=== PATIENT | male | born 1950 | race Caucasian/White ===

== ENCOUNTER 2020-01-05 01:09 | Outpatient (CLI) | payer MEDICARE, SELFPAY ==
[2020-01-06 18:47] LABS: SARS-CoV-2 RNA PCR Negative
== END 2020-01-05 01:10 | disposition home or self-care (01) ==
LOC: ANHCOVIDDT 01:09
PROVIDERS: PCP Surgery Plastic and Reconstructive Surgery; Visit Provider Otolaryngology
DX: Z03.818 Encounter for observation for suspected exposure to other biological agents ruled out (principal); Z11.59 Encounter for screening for other viral diseases
CPT/HCPCS: 87635; C9803; U0003

== ENCOUNTER 2020-01-05 08:35 | Outpatient (CLI) | payer MEDICARE, SELFPAY ==
--- NOTE | 2020-01-05 08:39 | ECG_ITS ---
Measurements Intervals [place] Rate: 86 P: 10 HI: 195 QRS: -81 QRSD: 140 T: 30 QT: 381 QTc: 457 Interpretive Statements SINUS RHYTHM RIGHT BUNDLE BRANCH BLOCK LEFT ANTERIOR FASCICULAR BLOCK ABNORMAL ECG Electronically Signed On 01-05-2020 9:08:27 CDT by Parker Curtis D.O.
[2020-01-05 09:33] LABS: Anion Gap 12.6 mmol/L (7-16); Blood Urea Nitrogen 32 mg/dL (9-20); Calcium 9.7 mg/dL (8.4-10.2); Carbon Dioxide 25 mmol/L (22-30); Chloride 103 mmol/L (98-107); Estimated Glomerular Filt Rate 55; Glucose 236 mg/dL (75-110); Potassium 4.6 mmol/L (3.4-5.0); Sodium 136 mmol/L (137-145)
== END 2020-01-05 08:36 | disposition home or self-care (01) ==
PROVIDERS: Anesthesiology; PCP Family Medicine; Visit Provider Otolaryngology
DX: Z01.818 Encounter for other preprocedural examination (principal); E11.9 Type 2 diabetes mellitus without complications; R94.31 Abnormal electrocardiogram [ECG] [EKG]
CPT/HCPCS: 36415; 80048; 87635; 93005; C9803; U0003

== ENCOUNTER 2020-01-08 01:24 | Day surgery (SDC) | payer MEDICARE, SELFPAY ==
[2020-01-01 14:14] VITALS: BMI 39.5
[2020-01-01 14:51] VITALS: BMI 39.5
[2020-01-08] VITALS (7 sets, daily range): BP systolic 126–146; BP diastolic 66–81; PULSE 59–100; RESP 10–16; TEMP 36.1–36.6; O2SAT 97–99
[2020-01-08] MEDS: LACTATED RINGERS 1,000 ML 30 ML IV CONT ×2 (08:54→10:50)
[2020-01-08 09:00] LABS: Glucose Point of Care 232 (65-105)
--- NOTE | 2020-01-08 09:13 | WPDANESEPPF ---
Anes - Initial Pre Proc Eval Procedure: Operation Date: 01/08/20 10:30 Proposed Procedures p Left Ear Tympanoplasty - Kashif Schaefer MD Date/Time: 01/08/20 09:13 Surgeon: Kashif Schaefer MD Pre Op Diagnosis: Tympanic Membrane Perforation Patient Data Age: 69 Gender: M Height: 5 ft 10 in Weight: 124.2 kg Last Vital Signs Temp 97.9 F 01/08/20 09:02 Pulse 98 01/08/20 09:02 BP 146/71 H 01/08/20 09:02 Pulse Ox 99 01/08/20 09:02 Allergies Allergy/AdvReac Type Severity Reaction Status Date / Time No Known Allergies Allergy Verified 01/08/20 08:37 Home Medications Medication Instructions Recorded Confirmed Type cholecalciferol (vitamin D3) 125 mcg PO DAILY 01/01/20 01/08/20 History clopidogrel [Plavix] 75 mg PO DAILY 01/01/20 01/08/20 History fenofibrate nanocrystallized 145 mg PO HS 01/01/20 01/08/20 History [Tricor] gabapentin 300 mg PO BID 01/01/20 01/08/20 History glipizide 5 mg HS 01/01/20 01/08/20 History glipizide 10 mg PO QAM 01/01/20 01/08/20 History insulin glargine [Lantus U-100 70 unit SUBCUT QPM 01/01/20 01/08/20 History Insulin] meloxicam [Mobic] 15 mg PO DAILY 01/01/20 01/08/20 History metformin 500 mg PO BID 01/01/20 01/08/20 History oxybutynin chloride 5 mg PO HS 01/01/20 01/08/20 History Laboratory Tests 01/08/20 08:57 POC Capillary Glucose 232 mg/dl H mg/dl (65-105) Patient hx anesthesia problems: none Family hx anesthesia problems: none PMFSH Past Medical History Medical History (Updated 01/08/20 @ 08:08 by Homer Seals MD) Diabetes Hyperlipidemia JOHN (obstructive sleep apnea) Peripheral neuropathy Social History Social History Smokeless tobacco user: chewing tobacco and snuff Additional smoking assessment comments: STATES CHEWED FOR 15-20 YRS STOPPED MAY 2019 Alcohol intake: current Alcohol use details: OCCASIONAL Living arrangements: with family Spiritual care concerns: No Anes - Eval Final PreProcedure Day of Procedure 01/08/20 09:13 Patient weight: morbidly obese Heart: regular rate and rhythm Lungs: clear to auscultation Airway: Mallampati scale class III Neurological: alert and oriented Last oral intake: >/= 8 hours ASA classification: III Emergent: no Anesthetic plan: proceed Anesthesia type and monitoring: general ETT (or LMA) and standard monitoring Informed Consent: The patient's anesthetic plan and its attendant risks and benefits were discussed with the patient/family/POA. Questions were solicited and answers provided to the satisfaction of the patient/family/POA.
--- NOTE | 2020-01-08 09:18 | SUR.PREOP ---
0915- REVIEWED PT BLOOD [id number] GAINES. HE STATED TO RECHECK IN PACU.
--- NOTE | 2020-01-08 09:24 | WPDHPUPDATE1 ---
History and Physical Update Update Date/Time: 01/08/20 09:24 LEFT tympanoplasty History and Physical has been reviewed, including an updated exam of the patient. There are NO changes in the patient's condition. Risks, benefits, and alternatives have been discussed and questions answered. Patient agrees to proceed with procedure.
[2020-01-08] MEDS: ceFAZolin 3 GM/D5W 100 ML 100 ML IVPB (09:50)
[2020-01-08] MEDS: LIDO 1%/EPINEPHRINE 1:100,000 20 ML VIAL INFILTRATE (10:20)
[2020-01-08] MEDS: EPINEPHrine HCL INJ 1 MG/ML AMPUL IRRIGATION (10:20)
[2020-01-08] MEDS: CIPROFLOXACIN HCL 0.3% OP SOLN 2.5 ML BTL 4 DROP EACH EAR (10:21)
--- NOTE | 2020-01-08 10:47 | P.OP_ITS ---
Procedure Note - Detailed Date of procedure: 01/08/20 Pre-op diagnosis: Tympanic Membrane Perforation Post-op diagnosis: same Procedure performed: Left fat graft myringoplasty Description of procedure: On date of surgery, the patient was identified in the preoperative holding area. Consent signed and verified. The correct ear was marked. The patient was then taken back to the OR and placed under general anesthesia via laryngeal mask. A timeout was performed verifying the correct patient identity, laterality and procedure which they were. The patient was then prepped and draped for left ear surgery. The ear was first examined under binocular microscope. This revealed an anterior 5-10% central perforation of the tympanic membrane. This was smaller than had been noted in the office. The edges were freshened using a reese pick with a postage stamp technique. The decision was made to perform a fat graft myringoplasty closure instead of formal fascia graft due to small size of perforation. Next, a small amount of gelfoam packing was secured in the middle ear space to create a bed for the graft. Attention was then directed to the postauricular space. A 1cm incision was made postauriuclarly after 1% lidocaine with 1:100k epinephrine was infiltrated. A piece of fat was harvested for grafting with care to avoid injury to surrounding skin. The harvest site was then closed with 5-0 fast absorbing suture in an interrupted fashion. The fat graft was then placed on the gelfoam, completely covering the perforation. Satisfied with placement, A cotton ball was placed in the ear canal, ointment and bandage placed on the harvest site, and care of the patient was returned to anesthesia who woke the patient up, removed LMA and transferred the patient to the PACU for recovery in stable condition without complication. Kashif Schaefer M.D. [facility] Surgeon: Kashif Schaefer MD Estimated blood loss (mL): 5 Drains: No Packing: Yes (gelfoam) Pathology: none sent Complications: No immediate complications Disposition: same day Findings: anterior left 5-10% perforation
[2020-01-11 09:35] LABS: Glucose Point of Care 171 (65-105)
== END 2020-01-08 12:14 | disposition home or self-care (01) ==
PROVIDERS: PCP Family Medicine; Visit Provider Otolaryngology
PROC: (CPT 69620; principal; 2020-01-08 10:30)
DX: H72.92 Unspecified perforation of tympanic membrane, left ear (principal); E78.5 Hyperlipidemia, unspecified; E11.40 Type 2 diabetes mellitus with diabetic neuropathy, unspecified; G47.33 Obstructive sleep apnea (adult) (pediatric); Z79.84 Long term (current) use of oral hypoglycemic drugs; Z79.4 Long term (current) use of insulin; Z79.02 Long term (current) use of antithrombotics/antiplatelets; Z87.891 Personal history of nicotine dependence; E66.01 Morbid (severe) obesity due to excess calories; Z68.39 Body mass index [BMI] 39.0-39.9, adult
CPT/HCPCS: 69620; A9270; J0171; J0690; J1100; J2250; J2405; J2704; J3010; J7120

== ENCOUNTER 2021-05-14 10:39 | Outpatient (CLI) | payer MEDICARE, SELFPAY ==
[2021-05-14 11:17] LABS: Anion Gap 7 mmol/L (8-16); Blood Urea Nitrogen 20 mg/dL (9-20); Calcium 8.9 mg/dL (8.4-10.2); Carbon Dioxide 27 mmol/L (22-30); Chloride 103 mmol/L (98-107); Estimated Glomerular Filt Rate > 60; Glucose 116 mg/dL (65-110); Potassium 4.3 mmol/L (3.4-5.0); Sodium 137 mmol/L (137-145)
== END 2021-05-14 10:40 | disposition home or self-care (01) ==
LOC: ANHSURGERY 10:42
PROVIDERS: Anesthesiology; PCP Family Medicine; Visit Provider Surgery
DX: Z01.818 Encounter for other preprocedural examination (principal); E11.9 Type 2 diabetes mellitus without complications
CPT/HCPCS: 36415; 80048

== ENCOUNTER 2021-05-19 02:45 | Day surgery (SDC) | payer MEDICARE, SELFPAY ==
[2021-05-05 15:02] VITALS: BMI 40.1
--- NOTE | 2021-05-05 15:08 | PC.NURSE ---
Report to the Outpatient Waiting Room, entrance under the green pavilion located off [facility], at time _1130 on date __05/19/21 . OR Time: 1:30 PM . - You and your visitor will be asked a series of questions to screen for COVID 19 for your protection. - A mask is required within the hospital. - Only one visitor is allowed at this time. Patient visitors will be guided where to wait when not with patient. Preoperative COVID Testing Requirements: No COVID Test needed if: (proof is required; if not received patient will have Rapid Test prior to entry) - Patient has received COVID Vaccine at least 14 days prior to procedure date or - Patient has positive COVID test result within last 90 days of surgery date. COVID Test needed if above criteria is not met If not COVID vaccinated a COVID test must be conducted within 72 hours of surgery and patient is asked to isolate self from time of testing until procedure. You will go to the [facility] for your COVID testing. The [facility] is located at the corner of [address] [facility]. You will only be called if COVID results are positive and your surgeon may reschedule your elective surgery date. Patients may have clear liquids (water, carbonated beverages, clear teas, apple juice) until 3 hours prior to surgery with a maximum of 20 ounces. - No food from midnight until time of surgery - Infants may have breast milk until 4 hours before surgery, infant formula 6 hours prior to surgery. - Children will be allowed to drink immediately following surgery. If applicable, please bring a bottle or sippy cup to assist with drinking. Juice, water, soda, and popsicles are readily available. For infants on formula, please bring formula the day of surgery. Pacifiers are allowed. Take the following medications with a SIP of water the morning of surgery: __GABAPENTIN MAY CONT. PLAVIX Medications to discontinue per physician _ALL VITAMINS AND SUPPLEMENTS 3 DAYS PRE OP Date to take last dose_05/15/21 Please no make-up, nail spanish, hairspray, perfume, deodorant, or body powder the day of surgery. No jewelry (including any body piercings) or valuables the day of surgery, leave them at home. Please take a shower or bath the night before, or the morning of, surgery with an antibacterial soap. Wear comfortable, loose fitting clothing. Children are encouraged to wear pajamas. - Jewelry must be removed prior to entering the operating room. Rings and piercings that are not removed may be cut off. - The hospital will not accept responsibility for valuables. - Please leave all valuables, including medications, at home the day of surgery. If you are going home after surgery, a licensed lease purchase truck driver must drive you home. - NO public transportation without another adult. - We recommend that an adult stay with you for 24 hours following discharge. - We also recommend that you do not drive, make important decision, drink alcoholic beverages, or take any drugs that were not prescribed by your health care provider for at least 24 hours after your discharge time. For Pediatric surgeries, we recommend two adults accompany the child home (only one inside the building at this time). Follow any additional instructions given to you from your surgeon. Telephone instructions given to _PATIENT and asked if any additional questions and then verbalized understanding. Patient advised to call surgeon office or pre surgery nurse liaison [phone] if any additional questions.
[2021-05-19] MEDS: LACTATED RINGERS 1,000 ML 30 ML IV CONT (10:25)
[2021-05-19 10:28] LABS: Glucose Point of Care 94 mg/dl (65-105)
--- NOTE | 2021-05-19 10:37 | P.PNAN_ITS ---
Anes - Initial Pre Proc Eval Procedure: Operation Date: 05/19/21 12:00 Proposed Procedures p Excision Anal Skin Lesion - Josue Avelar DO Date/Time: 05/19/21 10:37 Surgeon: Josue Avelar DO Pre Op Diagnosis: Anal 1 cm Skin Lesion Patient Data Age: 71 Gender: M Height: 1.78 m Weight: 131.8 kg Allergies Allergy/AdvReac Type Severity Reaction Status Date / Time No Known Allergies Allergy Verified 05/19/21 10:13 Home Medications Medication Instructions Recorded Confirmed Type cholecalciferol (vitamin D3) 125 mcg PO DAILY 01/01/20 05/05/21 History clopidogrel [Plavix] 75 mg PO HS 01/01/20 05/05/21 History gabapentin 300 mg PO BID 01/01/20 05/05/21 History glipizide 7.5 mg PO QAM 01/01/20 05/05/21 History oxybutynin chloride 5 mg PO HS 01/01/20 05/05/21 History insulin degludec [Tresiba 90 unit SUBCUT HS 05/05/21 05/05/21 History FlexTouch U-100] lisinopril 5 mg PO DAILY 05/05/21 05/05/21 History montelukast 10 mg PO DAILY 05/05/21 05/05/21 History primidone 50 mg PO DAILY 05/05/21 05/05/21 History rosuvastatin 10 mg PO HS 05/05/21 05/05/21 History Laboratory Tests 05/19/21 10:22 POC Capillary Glucose 94 mg/dl mg/dl (65-105) Patient hx anesthesia problems: none Family hx anesthesia problems: none Results Review: All pre-operative results and documents have been reviewed as part of the pre-operative evaluation. [facility] Past Medical History Medical History Diabetes Hyperlipidemia JOHN (obstructive sleep apnea) Peripheral neuropathy Pyloric stenosis Surgical History Surgical History H/O hemorrhoidectomy History of hernia repair Family History Family History Father Cerebrovascular accident Heart disease Mother Breast cancer Sibling Acute myocardial infarction Social History Social History Smoking status: Former smoker Tobacco type: pipe and cigars Smokeless tobacco user: chewing tobacco and snuff Additional smoking assessment comments: SMOKED PIPE AND CIGARS OCC. FOR 10 YRS. QUIT 2004 Alcohol intake: current Alcohol use details: ONE DRINK PER MONTH Living arrangements: with family Spiritual care concerns: No Anes - Eval Final PreProcedure Day of Procedure 05/19/21 10:37 Patient weight: morbidly obese Heart: regular rate and rhythm Lungs: clear to auscultation Airway: Mallampati scale class II Neurological: alert and oriented Last oral intake: >/= 8 hours ASA classification: III Emergent: no Anesthetic plan: proceed Anesthesia type and monitoring: general GIVS and standard monitoring Results Review: All pre-operative results and documents have been reviewed as part of the pre-operative evaluation. Informed Consent: The patient's anesthetic plan and its attendant risks and benefits were discussed with the patient/family/POA. Questions were solicited and answers provided to the satisfaction of the patient/family/POA.
[2021-05-19 10:41] VITALS: BP 109/50; PULSE 58; RESP 18; TEMP 36.6; O2SAT 98
--- NOTE | 2021-05-19 11:39 | WPDHPUPDATE1 ---
History and Physical Update Update Date/Time: 05/19/21 11:39 History and Physical has been reviewed, including an updated exam of the patient. There are NO changes in the patient's condition. Risks, benefits, and alternatives have been discussed and questions answered. Patient agrees to proceed with procedure.
--- NOTE | 2021-05-19 11:39 | PM.IMHP ---
H&P: HPI History of Present Illness Date/Time: 05/19/21 11:39 Chief Complaint: Anal skin lesion Narrative: 71 yo man presents for excision of anal skin lesion. He reports no changes since last seen in office. Review of Systems Review of Systems: All systems reviewed & are unremarkable except as noted in HPI and below Constitutional: Constitutional: Denies chills, Denies fever(s), Denies headache(s) and Denies weight loss Eyes: Eyes: Denies change in vision ENT: Denies dizziness, Denies headache(s), Denies neck mass and Denies throat swelling Cardiovascular: Cardiovascular: Denies chest pain, Denies lightheadedness and Denies dyspnea Respiratory: Respiratory: Denies cough, Denies dyspnea and Denies wheezing Gastrointestinal: Gastrointestinal: Denies abdominal pain, Denies change in bowel habits, Denies nausea and Denies vomiting Genitourinary: Genitourinary: Denies hematuria and Denies dysuria Musculoskeletal: Musculoskeletal: Reports as per HPI Integumentary/Breasts: Skin/Breast: Reports as per HPI Neurologic: Denies dizziness and Denies headache(s) Allergic/Immunologic: Allergic/Immunologic: Denies throat swelling and Denies wheezing [facility] Past Medical History Medical History Diabetes Hyperlipidemia JOHN (obstructive sleep apnea) Peripheral neuropathy Pyloric stenosis Surgical History Surgical History H/O hemorrhoidectomy History of hernia repair Family History Family History Father Cerebrovascular accident Heart disease Mother Breast cancer Sibling Acute myocardial infarction Social History Social History Smoking status: Former smoker Tobacco type: pipe and cigars Smokeless tobacco user: chewing tobacco and snuff Additional smoking assessment comments: SMOKED PIPE AND CIGARS OCC. FOR 10 YRS. QUIT 2004 Alcohol intake: current Alcohol use details: ONE DRINK PER MONTH Living arrangements: with family Spiritual care concerns: No Meds Home Medications and Allergies Home Medications Medication Instructions Recorded Confirmed Type cholecalciferol (vitamin D3) 125 mcg PO DAILY 01/01/20 05/19/21 History clopidogrel [Plavix] 75 mg PO HS 01/01/20 05/19/21 History gabapentin 300 mg PO BID 01/01/20 05/19/21 History glipizide 7.5 mg PO QAM 01/01/20 05/19/21 History oxybutynin chloride 5 mg PO HS 01/01/20 05/19/21 History insulin degludec [Tresiba 90 unit SUBCUT HS 05/05/21 05/19/21 History FlexTouch U-100] lisinopril 5 mg PO DAILY 05/05/21 05/19/21 History montelukast 10 mg PO DAILY 05/05/21 05/19/21 History primidone 50 mg PO DAILY 05/05/21 05/19/21 History rosuvastatin 10 mg PO HS 05/05/21 05/19/21 History Allergies Allergy/AdvReac Type Severity Reaction Status Date / Time No Known Allergies Allergy Verified 05/19/21 10:13 Vital Signs Vital Signs - 24 hr 05/19/21 10:41 Temperature 36.6 C Pulse Rate 58 L Respiratory Rate 18 Blood Pressure 109/50 L Pulse Oximetry 98 Exam Const: General: no acute distress and alert Orientation/consciousness: patient oriented x3 HENMT: Head: normocephalic and atraumatic Ears: hearing grossly normal bilaterally General nose exam: Normal nares present Mouth: Yes Normal oral and palatal mucosa present Eyes: Periorbital: periorbital findings normal Sclera: sclerae normal EOM: EOMs intact bilaterally Neck: Neck: normal visual inspection, no lymphadenopathy and trachea midline Chest: Chest palpation & inspection: normal inspection of the chest Resp: Effort & Inspection: normal respiratory effort Auscultation: clear to auscultation bilaterally Cardio: Jugular venous distension: no JVD Rate: regular rate Rhythm: regular rhythm Heart sounds: S1 normal heart sound prese
[2021-05-19] MEDS: ceFAZolin 3 GM/D5W 100 ML 100 ML IVPB (11:48)
[2021-05-19] MEDS: LIDO 1%/EPINEPHRINE/PF 1:200,000 30 ML VIAL XX (12:10)
[2021-05-19 12:20] VITALS: BP 125/64; PULSE 58; RESP 22; O2SAT 93
[2021-05-19 12:28] LABS: Glucose Point of Care 93 mg/dl (65-105)
[2021-05-19 12:50] VITALS: BP 98/54; PULSE 61; RESP 16
[2021-05-19 13:18] VITALS: BP 110/52; PULSE 53; RESP 16
--- NOTE | 2021-05-19 14:23 | P.OP_ITS ---
Procedure Note - Detailed Date of Procedure 05/19/21 Pre-op Diagnosis Anal 1 cm Skin Lesion Post-op Diagnosis same Procedure Performed Excision of 1 cm left lateral anal skin lesion Surgeon Josue Avelar, DO Indications this is a 71-year-old man who presents with an anal skin lesion. He noticed that this gets irritated and causes bleeding frequently. He does not have any pain in the region. He was found to have a raised lesion on his perianal skin. There did not appear to be anything advancing up into the anal canal. Discu ssions were made with the patient about treatment options and decision was made to proceed with excision of anal skin lesion. Findings The anal skin lesion was completely excised in the left lateral location. This appeared to be about 1-2 cm away from the anal verge and there did not appear to be any and extension into the anal canal. An elliptical incision was made around the skin lesion and it was completely excised and sent to the lab for pathology. Description of Procedure Procedure as well as risks, benefits, and alternatives were discussed with the patient. Written consent was obtained and placed in chart prior to procedure. Patient was brought back to surgical suite. He was placed supine on operating table. Time-out was done to confirm patient procedure. IV sedation was administered by Anesthesia Department. He was then placed in dorsal lithotomy position in stirrups. His perirectal area was prepped and draped in sterile fashion using Betadine prep. The perianal skin was carefully examined. The left lateral anal skin lesion was anesthetized with 1% lidocaine with epinephrine. An elliptical incision was made around the incision measuring about 1 cm wide. The incision was carried out through the skin all the way to the subcutaneous fat. The anal skin lesion was then excised completely and sent for pathology. Electrocautery was used for hemostasis. No other abnormalities were noted. The skin edges were then reapproximated using 3-0 nylon simple interrupted sutures. A careful examination of the perianal canal was then performed. there did not appear to be any lesions extending up into the anal canal. Digital rectal exam was also performed and no anal masses were palpable. Xeroform gauze was then applied followed by fluff gauze and mesh underwear. The patient was then awakened from anesthesia and transferred to recovery. Estimated Blood Loss 5 Pathology yes Complications No immediate complications Condition stable Disposition same day
== END 2021-05-19 13:25 | disposition home or self-care (01) ==
PROVIDERS: PCP Family Medicine; Visit Provider Surgery
PROC: (CPT 46922; principal; 2021-05-19 12:00)
DX: K62.6 Ulcer of anus and rectum (principal); E78.5 Hyperlipidemia, unspecified; E11.42 Type 2 diabetes mellitus with diabetic polyneuropathy; G47.33 Obstructive sleep apnea (adult) (pediatric); Z79.01 Long term (current) use of anticoagulants; Z79.84 Long term (current) use of oral hypoglycemic drugs; Z79.4 Long term (current) use of insulin; Z87.891 Personal history of nicotine dependence; E66.01 Morbid (severe) obesity due to excess calories; Z68.41 Body mass index [BMI] 40.0-44.9, adult
CPT/HCPCS: 46922; 82948; 88305; A9270; J0690; J2704; J7120

== ENCOUNTER → 2021-06-27 10:06 | Outpatient (CLI) | payer MEDICARE, SELFPAY ==
--- NOTE | ~2021-06-27 | CT_ITS ---
EXAMINATION: CT facial bones wo con EXAM DATE: 06/27/2021 10:22 INDICATION: Tearing eyes, dizziness . TECHNIQUE: Spiral CT of the facial bones was acquired in the axial plane without contrast. Coronal reformatted images were also reviewed. The dose-length product (DLP) for this examination was 466.61 mGy-cm. The exposure was tailored according to patient size, and iterative reconstruction (ASIR) wa s used as additional dose reduction technique. There is no prior study for comparison. 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 The lacrimal glands are normal in size. Globes are symmetric. No orbital mass. There are no displace d acute nasal bone fractures. The mandible, sinuses and orbits are intact. The visualized sinuses and mastoid air cells are well aerated. IMPRESSION: 1. 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 Reviewed, dictated and finalized at location A. FING ADMINISTRATOR IMPRESSION: 1. Mildly enlarged but symmetric appearing extraocular muscles, possible thyro id ophthalmoplegia.
== END ==
PROVIDERS: Visit Provider Family Medicine
DX: H04.203 Unspecified epiphora, bilateral (principal); R42 Dizziness and giddiness; H57.13 Ocular pain, bilateral
CPT/HCPCS: 70486

== ENCOUNTER → 2021-07-15 11:48 | Outpatient (CLI) | payer MEDICARE, SELFPAY ==
--- NOTE | ~2021-07-15 | MR_ITS ---
EXAMINATION: MR brain/brain stem wo/w con DATE: 07/15/2021 12:38 INDICATION: Pain of the eyes. Nystagmus. Dizziness. TECHNIQUE: Magnetic resonance imaging (MRI) of the brain and brainstem was performed without and with 20 mL MultiHance intravenous contrast. Sequences included sagittal and axial T1-weighted FSE, axial diffusion-weighted FS EPI, axial T2*-weighted GRE, axial T2-weighted FLAIR Propeller, and axial T2-we ighted Propeller. Postcontrast sequences included axial and coronal T1-weighted FSE. Apparent diffusi on coefficient (ADC) maps were created. COMPARISON: CT maxillofacial 06/27/2021 FINDINGS: There are scattered areas of nonspecific increased T2-weighted signal intensity in the cere bral white matter. There is no intracranial hemorrhage, acute infarction, or abnormal intracranial ma ss lesion. The ventricles are normal in size. There is a small left mastoid effusion. The orbits are normal. There is mild mucosal thickening in the ethmoid sinuses. IMPRESSION: 1. Mild nonspecific cerebral white matter disease, which likely represents chronic small vessel ische charlie disease. Reviewed, dictated and finalized at location A. DRY HOUSEKEEPER IMPRESSION: 1. Mild nonspecific cerebral white matter disease, which likely represents sheather tita small vessel ischemic disease.
[2021-07-15 12:18] LABS: Estimated Glomerular Filt Rate > 60
== END ==
PROVIDERS: PCP Family Medicine; Visit Provider Family Medicine
DX: H55.00 Unspecified nystagmus (principal); H57.13 Ocular pain, bilateral; H04.203 Unspecified epiphora, bilateral
CPT/HCPCS: 70553; A9577

== ENCOUNTER 2023-04-23 15:56 | Observation (INO) | payer MEDICARE, OTHER, SELFPAY ==
--- NOTE | ~2023-04-23 | XR_ITS ---
EXAMINATION: XR retrograde pyelo w/stent LT DATE: 04/24/2023 11:07 INDICATION: Left flank pain. TECHNIQUE: 7 intraoperative fluoroscopic views of the abdomen and pelvis were obtained. I was not pre sent. Fluoroscopy exposure time was 13 seconds. COMPARISON: Abdomen radiographs 04/23/2023. FINDINGS: The left-sided retrograde pyelogram demonstrates hydronephrosis. The final images demonstra te a left internal ureteral stent in expected position. IMPRESSION: 1. Left internal ureteral stent in expected position. Reviewed, dictated and finalized at location A. [facility] NURSE
--- NOTE | ~2023-04-23 | XR_ITS ---
EXAMINATION: XR abdomen/kub 1V DATE: 04/23/2023 18:11 INDICATION: Stone in left ureteropelvic junction. TECHNIQUE: A supine view of the abdomen on 2 radiographs was obtained. COMPARISON: None. FINDINGS: There are no dilated loops of bowel. The kidneys are obscured by bowel. There is contrast i n the bladder. There is no visible urolithiasis. IMPRESSION: 1. No visible urolithiasis. Reviewed, dictated and finalized at location E. [facility] DERMATOLOGIST IMPRESSION: 1. No visible urolithiasis.
[2023-04-23 16:13] VITALS: BP 123/57; PULSE 64; RESP 16; TEMP 36.4; O2SAT 98
[2023-04-23 16:52] LABS: Basophils Percent Auto 0.6 % (0.2-1.2); Eosinophils Absolute Auto 0.1 K/mm3 (0-0.3); Hematocrit 34.4 % (42.0-52.0); Hemoglobin 10.5 g/dL (14.0-18.0); Immature Granulocyte Absolute 0.02 K/mm3 (0.00-0.031); Immature Granulocyte Percent A 0.4 % (0-0.5); Lymphocytes Percent Auto 17.9 % (18.3-44.2); Mean Corpuscular HGB Conc 30.5 g/dl (32-36); Mean Corpuscular Hemoglobin 26.1 pg (26-34); Mean Corpuscular Volume 85.6 fl (80-100); Mean Platelet Volume 10.8 fl (7.4-10.4); Monocytes Absolute Auto 0.3 K/mm3 (0.1-0.6); Monocytes Percent Auto 6.8 % (2.6-8.5); Neutrophils Absolute Auto 3.6 K/mm3 (1.3-6.7); Neutrophils Percent Auto 72.3 % (45.5-73.1); Platelet Count Result 181 k/mm3 (150-375); Red Blood Count 4.02 M/mm3 (4.6-6.20); Red Cell Distribution Width 13.8 % (11.5-14.5)
--- NOTE | 2023-04-23 16:52 | ED.MALEGU ---
HPI - Male Genitourinary General Chief complaint: Urogenital-Male <So Saunders PA-C - Last Filed: 04/23/23 18:14> Stated complaint: kidney stones <So Saunders PA-C - Last Filed: 04/23/23 18:14> Time Seen by Provider: 04/23/23 16:12 <So Saunders PA-C - Last Filed: 04/23/23 18:14> History of Present Illness HPI Narrative: 73-year-old male with history of kidney stones reports for evaluation for a left kidney stone. Patient states for the past 2 to 3 weeks, he has been having left-sided abdominal discomfort, nausea and intermittent dry heaving as well as soft stools. States images PCP today who ordered blood work and labs and the CT showed a large stone in the left ureter. He states he was contacted by his PCP and advised to come to the ER for evaluation. The patient reports objective fevers and chills but has not taken his temperature. He denies chest pain or shortness of breath, urinary complaints. Patient states he has had multiple kidney stones in the past but is never had to undergo lithotripsy or stent placement. His urologist is Dr. Carlson in [place]. Pt's PCP, Dr. Nora Linares, did fax over results from prior labs and imaging obtained earlier today. CT scan impression reads left-sided hydronephrosis due to a 6x11 stone residing in the left UPJ. Labs significant with creatinine of 1.75, BUN of 26, WBCs 5.04. <So Saunders PA-C - Last Filed: 04/23/23 18:14> Related Data Home medications: Home Medications Medication Instructions Recorded Confirmed cholecalciferol (vitamin D3) 125 125 mcg PO DAILY 01/01/20 06/26/21 mcg (5,000 unit) tablet clopidogrel 75 mg tablet (Plavix) 75 mg PO 01/01/20 06/26/21 gabapentin 300 mg capsule 300 mg PO BID 01/01/20 06/26/21 glipizide 5 mg tablet 7.5 mg PO QAM 01/01/20 06/26/21 oxybutynin chloride 5 mg tablet 5 mg PO 01/01/20 06/26/21 insulin degludec 100 unit/mL (3 90 unit subcut HS 05/05/21 06/26/21 mL) subcutaneous pen (Tresiba FlexTouch U-100 insulin) lisinopril 5 mg tablet 5 mg PO DAILY 05/05/21 06/26/21 montelukast 10 mg tablet 10 mg PO DAILY 05/05/21 06/26/21 primidone 50 mg tablet 50 mg PO DAILY 05/05/21 06/26/21 rosuvastatin 10 mg tablet 10 mg PO HS 05/05/21 06/26/21 <So Saunders PA-C - Last Filed: 04/23/23 18:14> Allergies/Adverse reactions: Allergies Allergy/AdvReac Type Severity Reaction Status Date / Time No Known Allergies Allergy Verified 06/23/21 13:22 <So Saunders PA-C - Last Filed: 04/23/23 18:14> Review of Systems Review of Systems: CONSTITUTIONAL: Denies fever, chills EYES: Denies visual changes, redness, or discharge. ENT: Denies rhinorrhea, congestion, sore throat, or otalgia. CARDIOVASCULAR: Denies chest pain, palpitations, or edema. RESPIRATORY: Denies cough or dyspnea. GASTROINTESTINAL: See HPI GENITOURINARY: See HPI SKIN: Denies rash or itching. MUSCULOSKELETAL: Denies back pain, joint pain, or myalgia. NEUROLOGIC: Denies headache, numbness, dizziness, or weakness. PSYCHIATRIC: Denies anxiety or depression. <So Saunders PA-C - Last Filed: 04/23/23 18:14> [facility] Past Medical History Medical History: Medical History Diabetes Hyperlipidemia JOHN (obstructive sleep apnea) Peripheral neuropathy Pyloric stenosis <So Saunders PA-C - Last Filed: 04/23/23 18:14> Surgical History Surgical History: Surgical History H/O hemorrhoidectomy History of hernia repair History of local excision of skin lesion Excision 1 cm left lateral anal skin lesion 05/19/21 <So Saunders PA-C - Last Filed: 04/23/23 18:14> Family History Family History: Family History Father Cerebrovascular accident Heart disease Mother Breast cancer Sibling
[2023-04-23 17:01] LABS: Alanine Aminotransferase 18 U/L (6-50); Albumin Level 3.7 g/dL (3.5-5.1); Alkaline Phosphatase 71 U/L (38-126); Anion Gap 11 mmol/L (8-16); Aspartate Amino Transferase 21 U/L (17-59); Bilirubin,Total 0.4 mg/dL (0.2-1.3); Blood Urea Nitrogen 26 mg/dL (9-20); Carbon Dioxide 22 mmol/L (22-30); Chloride 104 mmol/L (98-107); Estimated Glomerular Filt Rate 43; Glucose 201 mg/dL (65-110); Potassium 4.4 mmol/L (3.4-5.0); Sodium 137 mmol/L (137-145)
[2023-04-23] MEDS: SODIUM CHLORIDE 0.9% IV 1,000 ML 999 ML IV CONT (17:11)
[2023-04-23] MEDS: ONDANSETRON INJ 4 MG/2 ML VIAL IV PUSH (17:11)
[2023-04-23] MEDS: MORPHINE SULFATE (*CRX) 4 MG/ML INJ IV PUSH (17:11)
[2023-04-23 17:13] LABS: Lipase 55 U/L (23-300)
[2023-04-23 17:19] VITALS: PULSE 65; RESP 16; O2SAT 96
[2023-04-23 17:31] LABS: Appearance Urine Clear (Clear); Bilirubin Urine Negative (Negative); Blood Urine Negative (Negative); Color Urine Yellow (Yellow); Glucose Urine UA Negative (Negative); Ketones Urine Negative (Negative); Leukocyte Esterase Ur Negative LEU/UL (Negative); Nitrate Urine Negative (Negative); Protein Urine Negative (Negative); Specific Grav Ur 1.026 (1.001-1.035); Urobilinogen Urine 0.2 mg/dL (<2.0); pH Urine 5.5 (5.0-9.0)
[2023-04-23 17:39] LABS: Add Urine Microscopic? NO
[2023-04-23] MEDS: SODIUM CHLORIDE 0.9% IV 1,000 ML 125 ML IV CONT (19:11)
[2023-04-23 21:05] VITALS: BP 122/56; PULSE 58; RESP 20; TEMP 36.2; O2SAT 97
[2023-04-23 21:30] LABS: Glucose Point of Care 143 mg/dl (65-105)
--- NOTE | 2023-04-23 21:43 | ADMGEN ---
This patient, Josue Crawford, was admitted to [facility] Surg Room 301-01. Patient/family oriented to hospital policies and general routines including ID bracelet, bed and alarms, visiting hours, pain management, procedures, bathroom and other care routines, personal items, smoking policy, room service/diet, and visiting hours. Information on how to activate the Rapid Response Team has been discussed. Patient/Family are encouraged to report perceived risks to care and to ask questions if they do not understand what they are told or what they should do.
[2023-04-23 22:25] VITALS: BMI 40.8
[2023-04-24] VITALS (10 sets, daily range): BP systolic 101–143; BP diastolic 50–69; PULSE 60–89; RESP 13–20; TEMP 35.8–36.2; O2SAT 94–100
--- NOTE | 2023-04-24 03:11 | PM.IMHP ---
H&P: HPI History of Present Illness Date/Time: 04/24/23 03:11 Chief Complaint: Kidney stone Narrative: 73-year-old male with past medical history of kidney stones, morbid obesity, obstructive sleep apnea, type 2 diabetes mellitus, and BPH who presented to the ER from primary care physician's office in [place] due to obstructing kidney stone. The patient reports that he has been having symptoms for 3 weeks. He has been having intermittent left flank pain and lower abdominal pain consists distant with his prior symptoms of kidney stones. He reported about a week ago the pain became quite severe for 1 day and was associated with some vomiting. The pain is eased up since that time but is still cause some abdominal distension. He has had some associated complaints of constipation and feeling as if he cannot have a complete bowel movement. He has had decreased appetite and fatigue. He has been having intermittent chills and sweats. He reports a subjective fever but has not measured his temperature. He has had some associated left lower flank pain and left anterior abdominal pain. He went to his primary care provider's office who ordered his CT of the abdomen and pelvis. The CT demonstrated left-sided hydronephrosis due to a 6 x 11 mm stone residing at the ureteral pelvic junction. The report was not available for my review and was obtained from the ER documentation. His outpatient creatinine was elevated to 1.75 with a BUN of 26 and his repeat creatinine here was 1.6. His urologist Dr. Reeder is out of town and would not be available to see the patient until next week so he was referred to our ER. He reports that he has never required a intervention for his kidney stones. He usually is able to pass the stones on his own. His last kidney stone was several years ago. He has been on his Flomax b.i.d. and has not missed any doses. He denies any hematuria. He reports normal urinary stream. He denies sensation of incomplete bladder emptying. Source of information is patient report. Patient's case was discussed with patient and his with patient's permission. Review of Systems Review of Systems: 12 systems were reviewed with pertinent positives and negatives per HPI. Except as documented in the HPI, all other systems were reviewed and are negative. He does have peripheral neuropathy due to diabetes. He denies diabetic eye disease. He reports his glucoses have been running in the 150s to 180s fasting. He has a continuous glucose monitor. PMFSH Past Medical History Medical History (Updated 04/24/23 @ 05:14 by Marga Gay DO) Diabetes Diabetic neuropathy History of pyloric stenosis as a child Hyperlipidemia Kidney stones Morbid obesity with BMI of 40.0-44.9, adult JONH (obstructive sleep apnea) With BiPAP use Peripheral neuropathy Pyloric stenosis Surgical History Surgical History (Updated 04/24/23 @ 05:14 by Marga Gay DO) H/O hemorrhoidectomy History of hernia repair Umbilical hernia repair History of local excision of skin lesion Excision 1 cm left lateral anal skin lesion 05/19/21 Family History Family History Father Cerebrovascular accident Heart disease Mother Breast cancer Sibling Acute myocardial infarction Social History Social History (Updated 04/24/23 @ 05:17 by Marga Gay DO) Social History: Patient lives in [place] with his of 53 years. They raised 2 sons. 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 He used to smoke a cigar or pipe on occasion for about 10 years but quit around 2005. He used to chew tobacco for 15-20 years but quit in 2018. He denies any significant alcohol use. Code status: Full code Surrogate decision maker: Smoking status: Former smoker Tobacco type: pipe and cigars Smokeless
[2023-04-24] MEDS: SODIUM CHLORIDE 0.9% IV 1,000 ML 125 ML IV CONT (04:22)
[2023-04-24 06:42] LABS: Anion Gap 6 mmol/L (8-16); Blood Urea Nitrogen 23 mg/dL (9-20); Calcium 8.5 mg/dL (8.4-10.2); Carbon Dioxide 25 mmol/L (22-30); Chloride 109 mmol/L (98-107); Estimated CRCL calculation 42 ml/min; Estimated Glomerular Filt Rate 35; Glucose 123 mg/dL (65-110); Potassium 4.6 mmol/L (3.4-5.0); Sodium 140 mmol/L (137-145)
[2023-04-24 08:51] LABS: Glucose Point of Care 79 mg/dl (65-105)
[2023-04-24] MEDS: DEXTROSE 5%/0.9% SOD CHL 1,000 ML 70 ML IV CONT (09:15)
[2023-04-24] MEDS: PRIMIDONE 50 MG TABLET PO (09:20)
--- NOTE | 2023-04-24 09:35 | PC.NURSE ---
To OR per hospital bed. Updated report given to SELENE Aviles RN. Spouse accompanied patient.
--- NOTE | 2023-04-24 10:27 | WPDURCON ---
Assessment and Plan Assessment and plan (1) Hydronephrosis concurrent with and due to calculi of kidney and ureter: Code(s): N13.2 - Hydronephrosis with renal and ureteral calculous obstruction Status: Acute Assessment and Plan: Stent will be placed today to relieve the obstruction (2) Left ureteral stone: Code(s): N20.1 - Calculus of ureter Status: Acute Assessment and Plan: cystoscopy with left retrograde pyelogram and stent placement. We reviewed risks of bleeding and infection. We discussed risk of stent related pain. We also reviewed the need for definitive management of the stone. (3) MARCIE (acute kidney injury): Code(s): N17.9 - Acute kidney failure, unspecified Status: Acute Assessment and Plan: He will need to be followed after the surgery to observe for the recovery of renal function after stent placement. Urology Consult Note HPI Date Seen: 04/24/23 Requesting Physician: Meka Craft MD Primary Care Provider: Nora Linaers MD Consult Narrative Narrative: Josue Crawford is a 73 year old male who presents from [facility] with an obstructing left proximal ureter stone. I reviewed the images from the [facility] computer system. There is hydronephrosis present. He has acute renal failure. Despite hydration, the creatinine remains elevated this AM. He states his pain and dry heaves have improved. Review of Systems Review of Systems: All systems reviewed & are unremarkable except as noted in HPI and below PMFSH Past Medical History Medical History (Updated 04/24/23 @ 05:14 by Marga Gay DO) Diabetes Diabetic neuropathy History of pyloric stenosis as a child Hyperlipidemia Kidney stones Morbid obesity with BMI of 40.0-44.9, adult JOHN (obstructive sleep apnea) With BiPAP use Peripheral neuropathy Pyloric stenosis Surgical History Surgical History (Updated 04/24/23 @ 05:14 by Marga Gay DO) H/O hemorrhoidectomy History of hernia repair Umbilical hernia repair History of local excision of skin lesion Excision 1 cm left lateral anal skin lesion 05/19/21 Family History Family History Father Cerebrovascular accident Heart disease Mother Breast cancer Sibling Acute myocardial infarction Social History Social History (Updated 04/24/23 @ 05:17 by Marga Gay DO) Social History: Patient lives in [place] with his of 53 years. They raised 2 sons. 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 He used to smoke a cigar or pipe on occasion for about 10 years but quit around 2004. He used to chew tobacco for 15-20 years but quit in 2018. He denies any significant alcohol use. Code status: Full code Surrogate decision maker: Smoking status: Former smoker Tobacco type: pipe and cigars Smokeless tobacco user: chewing tobacco and snuff Additional smoking assessment comments: SMOKED PIPE AND CIGARS OCC. FOR 10 YRS. QUIT 2004 Alcohol intake: current Drinks per week: 1 Alcohol use details: ONE DRINK PER MONTH Substance use: never Lack of Transportation: No Lack of Food: Never True Current Housing: I Have Housing Concerned About Future Housing: No Difficulty Paying Gas/Electric Bills: No Difficulty Paying for Meds: No Currently Unemployed: No Education: Associate Degree Difficulty w/ Childcare or Family Care: No Living arrangements: with family Spiritual care concerns: No Meds Home Medications and Allergies Home Medications Medication Instructions Recorded Confirmed Type clopidogrel 75 mg tablet (Plavix) 75 mg PO HS 01/01/20 04/23/23 History gabapentin 300 mg capsule 300 mg PO BID 01/01/20 04/23/23 History oxybutynin chloride 5 mg tablet 5 mg PO HS 01/01/20 04/23/23 History insulin degludec 100 unit/m
--- NOTE | 2023-04-24 10:42 | WPDANESEPPF ---
Anes - Initial Pre Proc Eval Procedure: Operation Date: 04/24/23 10:30 Proposed Procedures p Cysto, RPG, Stone Ext, Stent Placement - Tito Nelson MD Date/Time: 04/24/23 10:42 Surgeon: Meka Craft MD Pre Op Diagnosis: Left Ureteral Stone, MARCIE Patient Data Age: 73 Gender: M Height: 1.78 m Weight: 129.1 kg Last Vital Signs Temp 35.8 C L 04/24/23 06:00 Pulse 60 04/24/23 06:00 Resp 18 04/24/23 06:00 BP 129/67 04/24/23 06:00 Pulse Ox 97 04/24/23 06:00 O2 Del Method Room Air 04/23/23 16:13 Allergies Allergy/AdvReac Type Severity Reaction Status Date / Time No Known Allergies Allergy Verified 06/23/21 13:22 Home Medications Medication Instructions Recorded Confirmed Type clopidogrel 75 mg tablet (Plavix) 75 mg PO HS 01/01/20 04/23/23 History gabapentin 300 mg capsule 300 mg PO BID 01/01/20 04/23/23 History oxybutynin chloride 5 mg tablet 5 mg PO HS 01/01/20 04/23/23 History insulin degludec 100 unit/mL (3 75 unit subcut HS 05/05/21 04/23/23 History mL) subcutaneous pen (Tresiba FlexTouch U-100 insulin) lisinopril 5 mg tablet 2.5 mg PO DAILY 05/05/21 04/23/23 History montelukast 10 mg tablet 10 mg PO DAILY 05/05/21 04/23/23 History primidone 50 mg tablet 50 mg PO DAILY 05/05/21 04/23/23 History rosuvastatin 10 mg tablet 10 mg PO HS 05/05/21 04/23/23 History glimepiride 4 mg PO BID 04/23/23 04/23/23 History tamsulosin 0.4 mg capsule 0.4 mg PO BID 04/23/23 04/23/23 History Laboratory Tests 04/23/23 04/23/23 04/23/23 16:47 17:25 21:27 WBC 5.0 K/mm3 (4.5-10.0) RBC 4.02 L M/mm3 (4.6-6.20) Hgb 10.5 L g/dL (14.0-18.0) Hct 34.4 L % (42.0-52.0) MCV 85.6 fl (80-100) MCH 26.1 pg (26-34) MCHC 30.5 L g/dl (32-36) RDW 13.8 % (11.5-14.5) Plt Count 181 k/mm3 (150-375) MPV 10.8 H fl (7.4-10.4) Immature Gran % (Auto) 0.4 % (0-0.5) Neut % (Auto) 72.3 % (45.5-73.1) Lymph % (Auto) 17.9 L % (18.3-44.2) Taylor % (Auto) 6.8 % (2.6-8.5) Eos % (Auto) 2.0 % (0-4.4) Baso % (Auto) 0.6 % (0.2-1.2) Lymph # (Auto) 0.90 K/mm3 (0.9-3.2) Taylor # (Auto) 0.3 K/mm3 (0.1-0.6) Eos # (Auto) 0.1 K/mm3 (0-0.3) Baso # (Auto) 0.0 K/mm3 (0.0-0.1) Abs Immat Gran (auto) 0.02 K/mm3 (0.00-0.031) Absolute Neuts (auto) 3.6 K/mm3 (1.3-6.7) Absolute Nucleated RBC 0.0 K/mm3 (0.0-0.012) Nucleated RBC % 0.0 % (0.0-0.2) Sodium 137 mmol/L (137-145) Potassium 4.4 mmol/L (3.4-5.0) Chloride 104 mmol/L (98-107) Carbon Dioxide 22 mmol/L (22-30) Anion Gap 11 mmol/L (8-16) BUN 26 H mg/dL (9-20) Creatinine 1.60 H mg/dL (0.7-1.3) Estim Creat Clear Calc Not Reportable Estimated GFR 43 L (59 - ) Glucose 201 H mg/dL (65-110) POC Capillary Glucose 143 H mg/dl (65-105) Calcium 9.0 mg/dL (8.4-10.2) Total Bilirubin 0.4 mg/dL (0.2-1.3) AST 21 U/L (17-59) ALT 18 U/L (6-50) Alkaline Phosphatase 71 U/L (38-126) Total Protein 7.0 g/dL (6.3-8.2) Albumin 3.7 g/dL (3.5-5.1) Lipase 55 U/L (23-300) Urine Color Yellow (Yellow) Urine Appearance Clear (Clear) Urine pH 5.5 (5.0-9.0) Ur Specific [place] 1.026 (1.001-1.035) Urine Protein Negative mg/dL (Negative) Urine Glucose (UA) Negative mg/dL (Negative) Urine Ketones Negative mg/dL (Negative) Ur Blood (Man) Negative (Negative) Urine Nitrate Negative (Negative) Urine Bilirubin Negative (Negative) Urine Urobilinogen 0.2 mg/dL (<2.0) Leukocyte Esterase Rfl N
[2023-04-24] MEDS: ceFAZolin SODIUM 1 GM VIAL 2 GM IV PUSH (10:58)
[2023-04-24] MEDS: LIDOCAINE HCL 2% GEL UROJET 10 ML PKG MUCOUS MEM (11:02)
--- NOTE | 2023-04-24 11:05 | P.OP_ITS ---
Procedure Note - Detailed Date of Procedure 04/24/23 Pre-op Diagnosis Left Ureteral Stone, MARCIE Post-op Diagnosis Same Procedure Performed cystoscopy with left retrograde pyelogram and left ureter stent placement Surgeon Tito Nelson MD Anesthesia General Findings left hydronephrosis and good placement of stent Description of Procedure The patient was brought to the operating room in stable condition. He was given antibiotics for infection prophylaxis. He was placed under general anesthesia. He was placed in lithotomy position. He was prepped and draped in sterile fashion. A 22 Serbian cystoscope was introduced through the urethra into the bladder. The bladder was examined. No abnormalities were noted. The left ureter was cannulated by a sensor wire followed by an open ended catheter. A retrograde pyelogram was performed showing left hydronephrosis. The wire was placed to the renal pelvis and the open ended catheter was removed. A 6 Serbian variable length stent was then placed over the wire under direct vision and fluoroscopic guidance. A good curl was noted in the renal pelvis and the bladder. The bladder was drained. Lidocaine jelly was placed. Implants Stent Estimated Blood Loss 0 Urine Output 400 Complications No immediate complications Condition Stable Disposition PACU
[2023-04-24] MEDS: LACTATED RINGERS 1,000 ML 30 ML IV CONT (11:12)
[2023-04-24 11:27] LABS: Glucose Point of Care 71 mg/dl (65-105)
--- NOTE | 2023-04-24 11:40 | PC.NURSE ---
Telephone report received from SELENE Aviles RN.
--- NOTE | 2023-04-24 11:55 | PC.NURSE ---
Returned from OR per hospital bed. IVF restarted. No complaints voiced. Spouse at bedside.
[2023-04-24] MEDS: TAMSULOSIN HCL 0.4 MG CAPSULE PO ×2 (12:17→21:06)
[2023-04-24] MEDS: MONTELUKAST SODIUM 10 MG TABLET PO (12:18)
[2023-04-24] MEDS: GABAPENTIN 300 MG CAPSULE PO ×2 (12:18→21:06)
[2023-04-24] MEDS: MORPHINE SULFATE (*CRX) 4 MG/ML INJ IV PUSH (12:22)
--- NOTE | 2023-04-24 16:19 | PM.IMPN ---
Progress Note: A&P Assessment and Plan (1) Left ureteral stone: Code(s): N20.1 - Calculus of ureter Status: Acute Assessment and Plan: Patient presents with left sided abdominal pain. He had an outpatient CT scan showing left-sided hydronephrosis due to a 6x11 stone residing in the left UPJ. Patient was seen by Urology and underwent cystoscopy with left retrograde pyelogram and left ureter stent placement on 04/24. Will continue home Flomax. 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 Plavix is on hold. Resume when okay with urology. (2) Hydronephrosis concurrent with and due to calculi of kidney and ureter: Code(s): N13.2 - Hydronephrosis with renal and ureteral calculous obstruction Status: Acute Assessment and Plan: As above (3) MARCIE (acute kidney injury): Code(s): N17.9 - Acute kidney failure, unspecified Status: Acute Assessment and Plan: Patient with MARCIE with Cr 1.75 in the outpatient setting and 1.6 here. Cr worse today at 1.9. Suspect ATN from the obstructive process. Consider dehydration given his poor oral intake prior to admission. Continue IV fluid hydration. (4) JOHN (obstructive sleep apnea): Code(s): G47.33 - Obstructive sleep apnea (adult) (pediatric) Status: Acute Assessment and Plan: Patient has obstructive sleep apnea. BiPAP has been ordered. (5) Diabetes: Qualifiers: Diabetes mellitus type: type 2 Diabetes mellitus roasterman insulin use: with intermediate use Diabetes mellitus complication status: without complication Qualified Code(s): E11.9 - Type 2 diabetes mellitus without complications; Z79.4 - MCFP (current) use of insulin Code(s): E11.9 - Type 2 diabetes mellitus without complications Status: Acute Assessment and Plan: The patient's blood glucose was reviewed on 04/24 Glucose remains well controlled. Continue AccuCheks covering with sliding scale. Hypoglycemia protocol available as needed. Continue to monitor Plan DVT prophylaxis -SCDs Code status - full Subjective Date/time seen: 04/24/23 16:19 Interval history: 73yo male with DM, JOHN and kidney stones here for obstructing kidney stone. No problems overnight. No CP or SOB. Back from the OR. Having some mild left flank pain. No CP or SOB. Voiding well with mild hematuria. Exam Narrative: AF 97.1 133/60 75 16 97% ra Gen - NARD Chest - CTA bilaterally, nml RR CV - RRR S1/S2 Abd - Soft, obese, mild left flank pain Ext - trace pedal edema Psych - Nml mood and affect Skin - Warm and dry Objective Data Vital Signs Vital Signs: Vital Signs - 24 hr 04/23/23 17:19 04/23/23 21:05 04/24/23 06:00 Temperature 97.1 F L 96.5 F L Pulse Rate 65 58 L 60 Respiratory Rate 16 20 18 Blood Pressure 122/56 L 129/67 Pulse Oximetry 96 97 97 Oxygen Delivery Oxygen Flow Rate 04/24/23 08:00 04/24/23 11:12 04/24/23 11:15 Temperature Pulse Rate 89 79 Respiratory Rate 14 20 Blood Pressure 101/56 L 108/61 Pulse Oximetry 100 100 Oxygen Delivery Room Air Simple Face Mask Simple Face Mask Oxygen Flow Rate 10 10 04/24/23 11:30 04/24/23 11:45 04/24/23 12:00 Temperature 97.1 F L Pulse Rate 79 76 75 Respiratory Rate 13 13 16 Blood Pressure 108/62 106/57 L 110/50 L Pulse Oximetry 100 96 94 Oxygen Delivery Simple Face Mask Room Air Oxygen Flow Rate 10 04/24/23 12:15 04/24/23 12:45 04/24/23 13:45 Temperature 97.2 F L 97.1 F L 97.1 F L Pulse Rate 77 74 75 Respiratory Rate 16 16 16 Blood Pressure 125/60 137/60 133/60 Pulse Oximetry 97 97 97 Oxygen Delivery Oxygen Flow Rate Intake/Output Intake/Output: Intake & Output 04/21/23 04/22/23 04/23/23 04/24/23 23:59 23:59 23:59 23:59 Intake Total 1000 1820 Output Total 1575 Balance 1000 245 Meds/Results Medications: Active Medications Generic Name Dose Route Start Last Admin
[2023-04-24 18:21] LABS: Glucose Point of Care 331 mg/dl (65-105)
[2023-04-24] MEDS: INSULIN ASPART (*BKC) 100 UNITS/ML SUB-Q (18:28)
[2023-04-24] MEDS: SODIUM CHLORIDE 0.9% IV 1,000 ML 100 ML IV CONT (18:40)
[2023-04-24 21:06] LABS: Glucose Point of Care 364 mg/dl (65-105)
[2023-04-24] MEDS: ROSUVASTATIN 10 MG TABLET PO (21:06)
[2023-04-24] MEDS: oxyBUTYnin CHLORIDE 5 MG TABLET PO (21:06)
[2023-04-24] MEDS: INSULIN GLARGINE (*BKC) 100 UNITS/ML 50 UNITS SUB-Q (21:10)
[2023-04-25] MEDS: SODIUM CHLORIDE 0.9% IV 1,000 ML 100 ML IV CONT (04:38)
[2023-04-25 06:15] VITALS: BP 148/63; PULSE 55; RESP 18; TEMP 36.1; O2SAT 97
[2023-04-25 06:52] LABS: Albumin Level 3.3 g/dL (3.5-5.1); Anion Gap 7 mmol/L (8-16); Blood Urea Nitrogen 20 mg/dL (9-20); Carbon Dioxide 24 mmol/L (22-30); Chloride 107 mmol/L (98-107); Estimated CRCL calculation 53 ml/min; Estimated Glomerular Filt Rate 46; Glucose 195 mg/dL (65-110); Phosphorus 2.9 mg/dL (2.5-4.5); Potassium 4.8 mmol/L (3.4-5.0); Sodium 138 mmol/L (137-145)
[2023-04-25 07:41] LABS: Glucose Point of Care 170 mg/dl (65-105)
[2023-04-25 09:08] VITALS: O2SAT 95
[2023-04-25] MEDS: GABAPENTIN 300 MG CAPSULE PO (09:18)
[2023-04-25] MEDS: PRIMIDONE 50 MG TABLET PO (09:18)
[2023-04-25] MEDS: TAMSULOSIN HCL 0.4 MG CAPSULE PO (09:18)
[2023-04-25] MEDS: MONTELUKAST SODIUM 10 MG TABLET PO (09:18)
[2023-04-25 11:51] LABS: Glucose Point of Care 261 mg/dl (65-105)
[2023-04-25] MEDS: INSULIN ASPART (*BKC) 100 UNITS/ML SUB-Q (12:09)
--- NOTE | 2023-04-25 12:23 | WPDUROPN2 ---
Progress Note: A&P Assessment and Plan (1) Hydronephrosis concurrent with and due to calculi of kidney and ureter: Code(s): N13.2 - Hydronephrosis with renal and ureteral calculous obstruction Status: Acute Assessment and Plan: Stent has been placed. Renal function improving. He would like his definitive stone management here at [place]. He saw Dr. Abdullahi in the past. Will get him set up for stone procedure. OK for discharge from urologic perspective. Subjective Subjective Date/Time Seen: 04/25/23 12:23 Interval history: He feels well today. No pain and no issues with the stent. Creatinine has improved. Exam Resp: Effort & Inspection: normal respiratory effort Neuro: Speech: normal speech Objective Data Vital Signs Vital Signs: Vital Signs - 24 hr 04/24/23 12:45 04/24/23 13:45 04/24/23 20:40 Temperature 36.2 C L 36.2 C L 36.1 C L Pulse Rate 74 75 64 Respiratory Rate 16 16 18 Blood Pressure 137/60 133/60 143/69 H Pulse Oximetry 97 97 97 Oxygen Delivery 04/25/23 06:15 04/25/23 09:08 04/25/23 08:00 Temperature 36.1 C L Pulse Rate 55 L Respiratory Rate 18 Blood Pressure 148/63 H Pulse Oximetry 97 95 Oxygen Delivery Room Air Room Air Intake/Output Intake/Output: Intake & Output 04/22/23 04/23/23 04/24/23 04/25/23 23:59 23:59 23:59 23:59 Intake Total 1000 2040 1540 Output Total 1575 2600 Balance 1000 465 -1060 Meds/Results Medications: Active Medications Generic Name Dose Route Start Last Admin Trade Name Freq PRN Reason Stop Dose Admin Dextrose 12.5 gm 04/24/23 03:10 Dextrose 50% 25 Gm/50 Ml Syringe IV PUSH PRN PRN Hypoglycemia Protocol Gabapentin 300 mg 04/24/23 09:00 04/25/23 09:18 Gabapentin 300 Mg Capsule PO 300 mg Q12HR CONNOR Administration Glucagon 1 mg 04/24/23 03:10 Glucagon For Inj 1 Mg Vial IM PRN PRN Hypoglycemia Protocol Glucose 15 gm 04/24/23 03:10 Glucose Oral Gel 15 Gm Of Glucse In 37.5 Gm Tube PO PRN PRN Hypoglycemia Protocol Dextrose 1,000 mls @ 100 mls/hr 04/24/23 03:10 Dextrose 5% 1,000 Ml IVPB PRN PRN Hypoglycemia Protocol Sodium Chloride 1,000 mls @ 100 mls/hr 04/24/23 18:35 04/25/23 04:38 Normal Saline Iv IV CONT 100 mls/hr .Q10H CONNOR Administration Insulin Aspart 2 - 5 units 04/25/23 08:00 04/25/23 12:09 Insulin Aspart (*Bkc) 100 Units/Ml SUB-Q 3 units TIDWM CONNOR Administration Protocol Insulin Glargine 50 units 04/24/23 21:00 04/24/23 21:10 Insulin Glargine (*Bkc) 100 Units/Ml SUB-Q 05/24/23 20:59 50 units HS CONNOR Administration Montelukast Sodium 10 mg 04/24/23 09:00 04/25/23 09:18 Montelukast Sodium 10 Mg Tablet PO 10 mg DAILY CONNOR Administration Morphine Sulfate 4 mg 04/24/23 03:06 04/24/23 12:22 Morphine Sulfate (*Crx) 4 Mg/Ml Inj IV PUSH 4 mg Q3H PRN Administration Pain Rated 7-10 Ondansetron HCl 4 mg 04/23/23 18:13 Ondansetron Inj 4 Mg/2 Ml Vial IV PUSH Q4H PRN Nausea Oxybutynin Chloride 5 mg 04/24/23 21:00 04/24/23 21:06 Oxybutynin Chloride 5 Mg Tablet PO 5 mg HS CONNOR Administration Primidone 50 mg 04/24/23 09:00 04/25/23 09:18 Primidone 50 Mg Tablet PO 50 mg DAILY CONNOR Administration Rosuvastatin Calcium 10 mg 04/24/23 21:00 04/24/23 21:06 Rosuvastatin 10 Mg Tablet PO 10 mg HS CONNOR Administration Tamsulosin HCl 0.4 mg 04/24/23 09:00 04/25/23 09:18 Tamsulosin Hcl 0.4 Mg Capsule PO 0.4 mg Q12HR CONNOR Administration Radiology Results: ITS Impressions Abdomen X-Ray 04/23/23 18:13 IMPRESSION: 1. No visible urolithiasis. Retrograde Pyelogram 04/24/23 13:42 IMPRESSION: 1. Left internal ureteral stent in expected position. Labs Labs: Laboratory Results - last 24 hr 1104/24/23 04/25/23 18:17 20:42 05:56 Sodium 138 Potassium 4.8 Chloride 107 Carbon
--- NOTE | 2023-04-25 13:58 | WPDANESPN ---
Anes - Prog Note Post-Op Date/Time: 04/25/23 13:58 Cardiovascular status: normal Respiratory status: normal Airway patency: baseline Mental status: baseline Post-Op hydration status: normal Vital Signs: Last Vital Signs Temp 36.1 C L 04/25/23 06:15 Pulse 55 L 04/25/23 06:15 Resp 18 04/25/23 06:15 BP 148/63 H 04/25/23 06:15 Pulse Ox 95 04/25/23 09:08 O2 Del Method Room Air 04/25/23 09:08 O2 Flow Rate 10 04/24/23 11:30 Pain Score (VAS): 07/24 I/O: Intake & Output 04/24/23 04/25/23 04/25/23 23:59 07:59 15:59 Intake Total 220 1300 240 Output Total 2600 Balance 220 -1300 240 Laboratory Tests 04/23/23 16:47 04/25/23 05:56 04/24/23 04/24/23 04/25/23 18:17 20:42 05:56 Sodium 138 Potassium 4.8 Chloride 107 Carbon Dioxide 24 Anion Gap 7 L BUN 20 Creatinine 1.50 H Estim Creat Clear Calc 53 Estimated GFR 46 L Glucose 195 H POC Capillary Glucose 331 H 364 H Calcium 9.0 Phosphorus 2.9 Albumin 3.3 L 04/25/23 04/25/23 07:35 11:21 Sodium Potassium Chloride Carbon Dioxide Anion Gap BUN Creatinine Estim Creat Clear Calc Estimated GFR Glucose POC Capillary Glucose 170 H 261 H Calcium Phosphorus Albumin Post-procedural complaints: none Patient Feedback: Patient satisfied with anesthetic care.
--- NOTE | 2023-04-25 15:07 | PM.DS ---
DS: Admitting Diagnosis Discharge Date 04/25/23 Admitting Diagnosis Kidney stone DS: Discharge Diagnosis Discharge Diagnosis (1) Left ureteral stone: Code(s): N20.1 - Calculus of ureter Status: Acute (2) Hydronephrosis concurrent with and due to calculi of kidney and ureter: Code(s): N13.2 - Hydronephrosis with renal and ureteral calculous obstruction Status: Acute (3) MARCIE (acute kidney injury): Code(s): N17.9 - Acute kidney failure, unspecified Status: Acute Assessment and Plan: Patient with MARCIE with Cr 1.75 in the outpatient setting and 1.6 here. Cr worse today at 1.9. Suspect ATN from the obstructive process. Consider dehydration given his poor oral intake prior to admission. Continue IV fluid hydration. (4) JOHN (obstructive sleep apnea): Code(s): G47.33 - Obstructive sleep apnea (adult) (pediatric) Status: Acute (5) Diabetes: Qualifiers: Diabetes mellitus type: type 2 Diabetes mellitus medical terminologist insulin use: with medical terminologist use Diabetes mellitus complication status: without complication Qualified Code(s): E11.9 - Type 2 diabetes mellitus without complications; Z79.4 - halfway (current) use of insulin Code(s): E11.9 - Type 2 diabetes mellitus without complications Status: Acute DS: Summary Hospital Course Reason for hospitalization: 73yo male with DM, JOHN and kidney stones here for obstructing kidney stone. Please see H&P for details. Hospital Course: Patient presents with left sided abdominal pain. He had an outpatient CT scan showing left-sided hydronephrosis due to a 6x11 stone residing in the left UPJ. KUB here did not see any visible urolithiasis. UA was clear. No evidence of urinary infection. Patient with MARCIE with Cr 1.75 in the outpatient setting and 1.6 here that worsened to 1.9. Suspect ATN from the obstructive process vs dehydration given his poor oral intake prior to admission. He was treated with IV fluid hydration.?Patient was seen by Urology here and underwent cystoscopy with left retrograde pyelogram and left ureter stent placement on 04/24. We continued his home Flomax. 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 His Cr trended down to 1.5. He is voiding well. Patient overall did well and was able to be discharged home on 04/25/23. Status at Discharge Cognitive/behavioral status at discharge: Stable Time Spent with Patient Time attestation: Total time spent providing and/or coordinating discharge services: 35 minutes Time spent: Greater than 30 minutes Exam Narrative: AF 97.0 148/63 55 18 95% ra Gen - NARD Chest - CTA bilaterally, nml RR CV - RRR S1/S2 Abd - Soft, obese, minimal left lower quadrant pain Ext - no pedal edema Psych - Nml mood and affect Skin - Warm and dry DS: Data Data Completed and Pending Labs on day of discharge: Labs from last 24 hours 04/25/23 04/25/23 04/25/23 11:21 07:35 05:56 Sodium 138 Potassium 4.8 Chloride 107 Carbon Dioxide 24 Anion Gap 7 L BUN 20 Creatinine 1.50 H Estim Creat Clear Calc 53 Estimated GFR 46 L Glucose 195 H POC Capillary Glucose 261 H 170 H Calcium 9.0 Phosphorus 2.9 Albumin 3.3 L 04/24/23 04/24/23 20:42 18:17 Sodium Potassium Chloride Carbon Dioxide Anion Gap BUN Creatinine Estim Creat Clear Calc Estimated GFR Glucose POC Capillary Glucose 364 H 331 H Calcium Phosphorus Albumin Discharge Plan Discharge Attending physician on discharge: Marques Croft Consulting providers: Tito Nelson Discharging Clinician: Marques Croft Anticipated Discharge Date/Time: 04/25/23 15:14 Patient Disposition: Home, Self-Care Activity: as tolerated Diet: diabetic Discharge Instructions: Please check glucose before meals and before bed. Record and bring into your doctor for revie
== END 2023-04-25 16:15 | disposition home or self-care (01) ==
LOC: ANHED 18:03 → ANH3MEDSUR 20:44
PROVIDERS: Internal Medicine; Urology; Admitting Provider Internal Medicine; Emergency Provider Physician Assistant; PCP Family Medicine; Visit Provider Internal Medicine
PROC: (CPT 52352; principal; 2023-04-24 10:30)
DX: N13.2 Hydronephrosis with renal and ureteral calculous obstruction (principal); N17.9 Acute kidney failure, unspecified; E11.40 Type 2 diabetes mellitus with diabetic neuropathy, unspecified; E11.65 Type 2 diabetes mellitus with hyperglycemia; E78.5 Hyperlipidemia, unspecified; G47.33 Obstructive sleep apnea (adult) (pediatric); K31.1 Adult hypertrophic pyloric stenosis; N40.0 Benign prostatic hyperplasia without lower urinary tract symptoms; G62.9 Polyneuropathy, unspecified; E66.01 Morbid (severe) obesity due to excess calories; Z68.41 Body mass index [BMI] 40.0-44.9, adult; F17.290 Nicotine dependence, other tobacco product, uncomplicated; F10.90 Alcohol use, unspecified, uncomplicated; Z79.02 Long term (current) use of antithrombotics/antiplatelets; Z79.84 Long term (current) use of oral hypoglycemic drugs; Z79.4 Long term (current) use of insulin; Z79.85 Long-term (current) use of injectable non-insulin antidiabetic drugs; Z79.899 Other long term (current) drug therapy
CPT/HCPCS: 52332; 36415; 74018; 74420; 80048; 80053; 80069; 81003; 82948; 83690; 85025; 96361; 96374; 96375; 99285; A9270; C1758; C1769; C2617; G0378; J0690; J1100; J1170; J1815; J2270; J2405; J2704; J3010; J7030; J7042; J7120; Q9966

== ENCOUNTER 2023-05-20 10:15 | Outpatient (CLI) | payer MEDICARE, OTHER, SELFPAY ==
--- NOTE | 2023-05-20 10:34 | ECG_ITS ---
Measurements Intervals [place] Rate: 59 P: 50 AR: 195 QRS: -70 QRSD: 145 T: 31 QT: 424 QTc: 422 Interpretive Statements SINUS BRADYCARDIA RIGHT BUNDLE BRANCH BLOCK [120+ ms QRS DURATION, UPRIGHT V1, 40+ ms S IN I/aVL/V4/V5/V6] LEFT ANTERIOR FASCICULAR BLOCK [QRS AXIS <= -45, QR IN I, RS IN II] COMPARED TO ECG 01/05/2020 09:16:24 SINUS BRADYCARDIA NOW PRESENT Electronically Signed On 05-20-2023 19:12:00 ORCHARD SPRAYER by Maisha Lucero M.D.
[2023-05-20 11:52] LABS: Anion Gap 8 mmol/L (8-16); Blood Urea Nitrogen 24 mg/dL (9-20); Calcium 9.6 mg/dL (8.4-10.2); Carbon Dioxide 25 mmol/L (22-30); Chloride 103 mmol/L (98-107); Estimated Glomerular Filt Rate > 60; Glucose 124 mg/dL (65-110); Potassium 4.7 mmol/L (3.4-5.0); Sodium 136 mmol/L (137-145)
== END 2023-05-20 10:16 | disposition home or self-care (01) ==
PROVIDERS: Anesthesiology; PCP Family Medicine; Visit Provider Urology
DX: Z01.812 Encounter for preprocedural laboratory examination (principal); Z01.810 Encounter for preprocedural cardiovascular examination; N20.1 Calculus of ureter; E11.9 Type 2 diabetes mellitus without complications; R00.1 Bradycardia, unspecified; I45.2 Bifascicular block
CPT/HCPCS: 36415; 80048; 87086; 93005

== ENCOUNTER 2023-05-25 01:04 | Day surgery (SDC) | payer MEDICARE, OTHER, SELFPAY ==
--- NOTE | 2023-05-18 15:34 | PC.NURSE ---
Report to the Outpatient Waiting Room, entrance under the green pavilion located off [facility], at time _0630_ on date _05/25/23_. Planned Procedure Time: _0830_. Time changes happen often and if your time is changed the preop area will call you the afternoon before. - You and your visitor will be asked to self-screen and do not enter if you have any COVID symptoms. - A mask is optional within the hospital at this time. Patients may have clear liquids (water, carbonated beverages, clear teas, apple juice) until 3 hours prior to surgery (0530 AM) with a maximum of 20 ounces. - No food from midnight until time of surgery Take the following medications with a SIP of water the morning of surgery: _GABAPENTIN__ DO NOT STOP ANY OF YOUR OTHER PRESCRIPTION MEDICATIONS PRIOR TO SURGERY ?EXCEPT THE FOLLOWING Medications to discontinue per physician _PT STATES LAST TAKING PLAVIX 04/25/23_ Date to take last dose Please no make-up, nail yoruba, hairspray, perfume, deodorant, or body powder the day of surgery. No jewelry (including any body piercings) or valuables the day of surgery, leave them at home. Please take a shower or bath the night before, or the morning of, surgery with an antibacterial soap. Wear comfortable, loose fitting clothing. - Jewelry must be removed prior to entering the operating room. Rings and piercings that are not removed may be cut off. - The hospital will not accept responsibility for valuables. - Please leave all valuables, including medications, at home the day of surgery. If you are going home after surgery, a licensed racecar driver must drive you home. - NO public transportation without another adult if you receive anesthesia. - We recommend that an adult stay with you for 24 hours following discharge. - We also recommend that you do not drive, make important decision, drink alcoholic beverages, or take any drugs that were not prescribed by your health care provider for at least 24 hours after your discharge time. Follow any additional instructions given to you from your surgeon. If you or anyone in your household have experienced Covid symptoms in the past week, please notify your surgeon or the nurse liaison at the phone number below for possible testing. Telephone instructions given to _PATIENT__and asked if any additional questions and then verbalized understanding. Patient advised to call surgeon office or pre surgery nurse liaison [phone] if any additional questions.
[2023-05-18 15:36] VITALS: BMI 40.2
[2023-05-25] VITALS (8 sets, daily range): BP systolic 104–125; BP diastolic 47–93; PULSE 60–100; RESP 12–20; TEMP 36.3; O2SAT 97–100
--- NOTE | ~2023-05-25 | XR_ITS ---
EXAMINATION: XR retrograde pyelo w/stent LT DATE: 05/25/2023 09:26 INDICATION: Internal ureteral stent placement TECHNIQUE: Fluoroscopic images from a left internal ureteral stent placement are submitted for review . 23 seconds of fluoroscopy time. FINDINGS: There is a left double-J internal ureteral stent projecting in expected position, with proximal [place] loop at the level of the renal pelvis and distal loop in the pelvis within the bladder lumen. IMPRESSION: 1. Left internal ureteral stent placement. Please refer to real-time procedural findings for detail s. Reviewed, dictated and finalized at location A. LLMENT CLERK IMPRESSION: 1. Left internal ureteral stent placement. Please refer to real-time procedur al findings for details.
[2023-05-25] MEDS: LACTATED RINGERS 1,000 ML 30 ML IV CONT ×2 (07:00→09:25)
--- NOTE | 2023-05-25 07:21 | WPDHPUPDATE1 ---
History and Physical Update Update Date/Time: 05/25/23 07:21 History and Physical has been reviewed, including an updated exam of the patient. There are NO changes in the patient's condition. Risks, benefits, and alternatives have been discussed and questions answered. Patient agrees to proceed with procedure.
[2023-05-25 07:41] LABS: Glucose Point of Care 87 mg/dl (65-105)
--- NOTE | 2023-05-25 08:27 | WPDANESEPPF ---
Anes - Initial Pre Proc Eval Procedure: Operation Date: 05/25/23 08:30 Proposed Procedures p Cystoscopy, Left Ureteroscopy, Left Retrograde Pyelogram, Left Stone Extraction with Holmium Laser, Left Stent Exchange - Shaji Abdullahi MD Date/Time: 05/25/23 08:27 Surgeon: Shaji Abdullahi MD Pre Op Diagnosis: Renal Stones Patient Data Age: 73 Gender: M Height: 1.78 m Weight: 125.1 kg Last Vital Signs Temp 36.3 C L 05/25/23 07:00 Pulse 60 05/25/23 07:00 Resp 16 05/25/23 07:00 BP 125/59 L 05/25/23 07:00 Pulse Ox 100 05/25/23 07:00 O2 Del Method Room Air 05/25/23 07:00 Allergies Allergy/AdvReac Type Severity Reaction Status Date / Time No Known Allergies Allergy Verified 05/25/23 07:54 Home Medications Medication Instructions Recorded Confirmed Type clopidogrel 75 mg tablet (Plavix) 75 mg PO HS 01/01/20 05/18/23 History gabapentin 300 mg capsule 300 mg PO BID 01/01/20 05/25/23 History oxybutynin chloride 5 mg tablet 5 mg PO HS 01/01/20 05/18/23 History insulin degludec 100 unit/mL (3 75 unit subcut HS 05/05/21 05/18/23 History mL) subcutaneous pen (Tresiba FlexTouch U-100 insulin) lisinopril 5 mg tablet 2.5 mg PO DAILY 05/05/21 05/18/23 History montelukast 10 mg tablet 10 mg PO DAILY 05/05/21 05/18/23 History primidone 50 mg tablet 50 mg PO DAILY 05/05/21 05/18/23 History rosuvastatin 10 mg tablet 10 mg PO HS 05/05/21 05/18/23 History tamsulosin 0.4 mg capsule 0.4 mg PO BID 04/23/23 05/18/23 History Laboratory Tests 05/25/23 07:34 POC Capillary Glucose 87 mg/dl (65-105) Patient hx anesthesia problems: none Family hx anesthesia problems: none Results Review: All pre-operative results and documents have been reviewed as part of the pre-operative evaluation. [facility] Past Medical History Medical History Diabetes Diabetic neuropathy History of pyloric stenosis as a child Hyperlipidemia Kidney stones Morbid obesity with BMI of 40.0-44.9, adult JOHN (obstructive sleep apnea) With BiPAP use Peripheral neuropathy Pyloric stenosis Surgical History Surgical History H/O hemorrhoidectomy History of hernia repair Umbilical hernia repair History of local excision of skin lesion Excision 1 cm left lateral anal skin lesion 05/19/21 Family History Family History Father Cerebrovascular accident Heart disease Mother Breast cancer Sibling Acute myocardial infarction Social History Social History Social History: Patient lives in [place] with his of 53 years. They raised 2 sons. 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 He is now retired. He used to smoke a cigar or pipe on occasion for about 10 years but quit around 2004. He used to chew tobacco for 15-20 years but quit in 2018. He denies any significant alcohol use. Code status: Full code Surrogate decision maker: Smoking status: Former smoker Tobacco type: pipe and cigars Smokeless tobacco user: chewing tobacco and snuff Second hand tobacco smoke exposure: No Additional smoking assessment comments: SMOKED PIPE/CIGARS/10 YRS/QUIT 2004 Alcohol intake: current Drinks per week: 1 Alcohol use details: 1/MONTH Substance use: never Substance use type: does not use Lack of Transportation: No Lack of Food: Never True Current Housing: I Have Housing Concerned About Future Housing: No Difficulty Paying Gas/Electric Bills: No Difficulty Paying for Meds: No Currently Unemployed: No Education: Associate Degree Difficulty w/ Childcare or Family Care: No Living arrangements: with family Spiritual care concerns: No Anes - Eval Final P
[2023-05-25] MEDS: ceFAZolin 3 GM/D5W 100 ML 100 ML IVPB (08:33)
[2023-05-25] MEDS: LIDOCAINE HCL 2% GEL UROJET 10 ML PKG MUCOUS MEM (08:53)
--- NOTE | 2023-05-25 09:22 | P.OP_ITS ---
Procedure Note - Detailed Date of Procedure 05/25/23 Pre-op Diagnosis Right renal calculus 11 x 9 mm Post-op Diagnosis Same Procedure Performed Cystoscopy, left retrograde, left ureteroscopy with holmium laser, left ureteral stent exchange 4.8 [place] Island[place] contour Surgeon Shaji Abdullahi MD Anesthesia General Description of Procedure Patient is taken to the operative suite correctly identified. Once anesthesia was obtained was placed in dorsal lithotomy position and prepped and draped usual sterile fashion. Nineteen [place] Island[place] scope was inserted the bladder. The prior stent was grasped and brought out the meatus. Guidewire was passed through the stent up into the renal pelvis. Ureteral access sheath was then placed. Mini flexible ureteral scope was inserted. Stone was visualized in the upper pole calyx. Using 200 micron fiber we lasered the stone and dusted it. There were no large fragments enough to retrieve at this time. Pyelogram was then performed to confirm placement of the stent. 4.8 [place] Island[place] contour stent was then placed with the proximal end coiled in the renal pelvis and the distal in the bladder. 2% viscous lidocaine was inserted into the urethra patient is taken recovery stable condition. Will plan on stent removal in 1-2 weeks time. This completes dictation. Please send a copy of this op note to my office. Estimated Blood Loss 0 Drains Yes Packing No Pathology None sent Complications No immediate complications Condition Stable Disposition PACU
[2023-05-25 09:34] LABS: Glucose Point of Care 102 mg/dl (65-105)
--- NOTE | 2023-05-25 09:48 | SUR.PHASEI ---
0948: Simple mask removed.
== END 2023-05-25 10:58 | disposition home or self-care (01) ==
PROVIDERS: PCP Family Medicine; Visit Provider Urology
PROC: (CPT 52352; principal; 2023-05-25 08:30)
DX: N20.0 Calculus of kidney (principal); E78.5 Hyperlipidemia, unspecified; G47.33 Obstructive sleep apnea (adult) (pediatric); E11.42 Type 2 diabetes mellitus with diabetic polyneuropathy; Z79.02 Long term (current) use of antithrombotics/antiplatelets; Z79.4 Long term (current) use of insulin; Z87.891 Personal history of nicotine dependence; E66.9 Obesity, unspecified; Z68.39 Body mass index [BMI] 39.0-39.9, adult
CPT/HCPCS: 52356; 74420; 82948; C1769; C1894; C2617; J0690; J1100; J2371; J2405; J2704; J3010; J7120; Q9966

== ENCOUNTER 2023-12-07 15:20 | Outpatient (CLI) | payer MEDICARE, OTHER, SELFPAY ==
--- NOTE | ~2023-12-07 | XR_ITS ---
3 VIEWS LUMBAR SPINE Ordering provider: Frida Newman, ANP History: . Left leg pain, back pain . Comparison: None. FINDINGS: VERTEBRAL BODIES: No visible fracture or subluxation. Degenerative changes DISK SPACES: Normal. Multilevel facet joint disease. SOFT TISSUES: Normal. Atherosclerotic changes of the aorta. Bilateral sacroiliacs. IMPRESSION: No acute osseous abnormality lumbar spine. Reviewed, dictated and finalized at location A.
== END 2023-12-07 15:21 ==
PROVIDERS: PCP Family Medicine; Visit Provider Nurse Practitioner Family
DX: M79.605 Pain in left leg (principal); M54.9 Dorsalgia, unspecified
CPT/HCPCS: 72100

== ENCOUNTER 2024-01-27 09:04 | Outpatient (CLI) | payer MEDICARE, OTHER, SELFPAY ==
--- NOTE | ~2024-01-27 | XR_ITS ---
XR abdomen/kub 1V Ordering provider: Shaji Abdullahi MD History: . CALCIUM KIDNEY STONE . Comparison: None. FINDINGS: BOWEL: Nonobstructive bowel gas pattern. ORGANOMEGALY: None. SIGNIFICANT PATHOLOGIC CALCIFICATIONS: Calcific shadow in the left side of the pelvis which may be ph lebolith or a stone. Clinical correlation and follow-up advised. OTHER: Degenerative the spine. No free air is seen under the diaphragm. Pubic symphysitis. IMPRESSION: NO ACUTE ABDOMINAL FINDINGS. Calcific shadow in the left side of the pelvis which may be phlebolith or a stone. Clinical correlati on and follow-up advised. Reviewed, dictated and finalized at location A. IMPRESSION: NO ACUTE ABDOMINAL FINDINGS. Calcific shadow in the left side of the pelvis which may be phlebolith or a sto ne. Clinical correlation and follow-up advised.
== END 2024-01-27 09:05 | disposition home or self-care (01) ==
PROVIDERS: PCP Family Medicine; Visit Provider Urology
DX: N20.0 Calculus of kidney (principal)
CPT/HCPCS: 74018

== ENCOUNTER 2024-02-04 10:53 | Outpatient (CLI) | payer MEDICARE, OTHER, SELFPAY ==
--- NOTE | ~2024-02-04 | CT_ITS ---
EXAMINATION: CT abdomen pelvis w con DATE: 02/04/2024 11:27 INDICATION: Constipation. TECHNIQUE: Computed tomography (CT) of the abdomen and pelvis was performed with 100 mL Omnipaque 350 intravenous contrast. Automated exposure control and iterative reconstruction technique were employe d. The dose-length product was 1531.67 mGy-cm. COMPARISON: None. FINDINGS: The visualized portion images of the lung bases demonstrate mild atelectasis. No pleural ef fusion. The heart is normal. No pericardial effusion. There are coronary artery calcifications. There is an 8 mm hypodense mass in left hepatic lobe, benign. There is mild splenomegaly. The gallbladder is distended with wall thickening. The pancreas and right adrenal gland are normal. There is a 2.0 cm mass containing fat in left adrenal gland, consistent with a myelolipoma. There is cortical thinning of the kidneys. There are cysts in the kidneys measuring up to 5.1 cm on the left. There is a 2 mm s tone in right kidney. There is a 2 mm stone in left kidney. The bladder is distended. The prostate is mildly enlarged. There are no dilated loops of bowel. The appendix is normal. There are no pathologi geri enlarged lymph nodes. There is no free intraperitoneal fluid. There are bridging endplate osteo phytes at multiple levels in the spine, consistent with diffuse idiopathic skeletal hyperostosis (DIS H). There is moderate thoracolumbar spondylosis. IMPRESSION: 1. Distended gallbladder with wall thickening suspicious for acute or chronic cholecystitis. Reviewed, dictated and finalized at location A. IMPRESSION: 1. Distended gallbladder with wall thickening suspicious for acute or chronic c holecystitis.
[2024-02-04 11:22] LABS: Estimated Glomerular Filt Rate > 60
== END 2024-02-04 10:54 | disposition home or self-care (01) ==
PROVIDERS: PCP Family Medicine; Visit Provider Family Medicine
DX: R79.89 Other specified abnormal findings of blood chemistry (principal); K59.00 Constipation, unspecified; N18.9 Chronic kidney disease, unspecified; R10.9 Unspecified abdominal pain
CPT/HCPCS: 74177; Q9967

== ENCOUNTER 2024-02-07 11:21 | Outpatient (CLI) | payer MEDICARE, OTHER, SELFPAY ==
--- NOTE | ~2024-02-07 | US_ITS ---
Limited Abdominal Sonogram: Real-time sonographic imaging of the right upper quadrant was performed. Clinical History: Abdominal pain Findings: The liver appears normal with no evidence of mass lesion or bile duct dilatation. Liver me asures 20.3 cm in length. Main portal vein demonstrates normal direction of flow. The gallbladder is well distended, and appears normal with no evidence of gallstone or wall thickening. The common bile duct measures 3 mm. The visualized pancreas, aorta, and IVC are unremarkable. Right kidney measures 12.1 cm in length, otherwise unremarkable. Impression: Hepatomegaly. Distended gallbladder, but no evidence of gallstone or gallbladder wall thickening. Reviewed, dictated and finalized at location . Impression: Hepatomegaly. Distended gallbladder, but no evidence of gallstone or gallbladder wall thicken ing.
== END 2024-02-07 11:22 | disposition home or self-care (01) ==
PROVIDERS: PCP Family Medicine; Visit Provider Family Medicine
DX: K82.8 Other specified diseases of gallbladder (principal)
CPT/HCPCS: 76705

== ENCOUNTER 2024-02-21 07:43 | Outpatient (CLI) | payer MEDICARE, OTHER, SELFPAY ==
--- NOTE | ~2024-02-21 | NM_ITS ---
EXAMINATION: NM hepatobiliary w pharm DATE: 02/21/2024 11:50 INDICATION: Cholecystitis. COMPARISON: CT dated 02/04/2024 TECHNIQUE: 4.9 mCi Tc-99m mebrofenin (Choletec) was administered intravenously. Scintigraphic images of the abdomen were obtained for one hour. 2.7 mcg sincalide (Kinevac) was administered by slow intr avenous infusion, and imaging was continued for 30 minutes. Gallbladder ejection fraction was calcula letty by the technologist. FINDINGS: There is normal clearance of radiotracer from the blood pool. There is homogeneous tracer uptake by t he liver. Activity progresses to the gallbladder and bowel. The gallbladder ejection fraction (GBEF) is 5% (normal 10-90%, but most patient with gallbladder dysfunction have GBEF < 35% which does overl ap with the normal range). IMPRESSION: 1. Gallbladder ejection fraction below normal limits consistent with gallbladder dysfunction or associate curator tita cholecystitis in the appropriate clinical setting. Reviewed, dictated and finalized at location B. IMPRESSION: 1. Gallbladder ejection fraction below normal limits consistent with gallbladd er dysfunction or chronic cholecystitis in the appropriate clinical setting.
== END 2024-02-21 07:44 | disposition home or self-care (01) ==
PROVIDERS: PCP Family Medicine; Visit Provider Surgery
DX: K81.9 Cholecystitis, unspecified (principal)
CPT/HCPCS: 78227; A9537; J2805

== ENCOUNTER 2024-04-03 10:09 | Outpatient (CLI) | payer MEDICARE, OTHER, SELFPAY ==
[2024-04-03 12:57] LABS: Basophils Absolute Auto 0.1 K/mm3 (0.0-0.1); Eosinophils Absolute Auto 0.1 K/mm3 (0-0.3); Eosinophils Percent Auto 2.4 % (0-4.4); Hematocrit 39.1 % (42.0-52.0); Hemoglobin 12.1 g/dL (14.0-18.0); Immature Granulocyte Absolute 0.05 K/mm3 (0.00-0.031); Lymphocytes Absolute Auto 1.03 K/mm3 (0.9-3.2); Lymphocytes Percent Auto 20.4 % (18.3-44.2); Mean Corpuscular HGB Conc 30.9 g/dl (32-36); Mean Corpuscular Volume 87.3 fl (80-100); Mean Platelet Volume 11.8 fl (7.4-10.4); Monocytes Absolute Auto 0.3 K/mm3 (0.1-0.6); Monocytes Percent Auto 5.8 % (2.6-8.5); Neutrophils Absolute Auto 3.5 K/mm3 (1.3-6.7); Neutrophils Percent Auto 69.4 % (45.5-73.1); Platelet Count Result 114 k/mm3 (150-375); Red Blood Count 4.48 M/mm3 (4.6-6.20); Red Cell Distribution Width 14.5 % (11.5-14.5)
[2024-04-03 13:10] LABS: Alanine Aminotransferase 15 U/L (6-50); Albumin Level 3.8 g/dL (3.5-5.1); Alkaline Phosphatase 64 U/L (38-126); Amylase 46 U/L (30-110); Anion Gap 8 mmol/L (4-12); Aspartate Amino Transferase 15 U/L (17-59); Bilirubin,Total 0.6 mg/dL (0.2-1.3); Blood Urea Nitrogen 21 mg/dL (9-20); Calcium 9.1 mg/dL (8.4-10.2); Carbon Dioxide 26 mmol/L (22-30); Chloride 105 mmol/L (98-107); Estimated Glomerular Filt Rate > 60; Glucose 231 mg/dL (65-110); Lipase 50 U/L (23-300); Potassium 4.5 mmol/L (3.4-5.0); Sodium 139 mmol/L (137-145)
== END 2024-04-03 10:10 | disposition home or self-care (01) ==
LOC: ANHSURGERY 10:14
PROVIDERS: PCP Family Medicine; Visit Provider Surgery
DX: Z01.812 Encounter for preprocedural laboratory examination (principal); K81.1 Chronic cholecystitis
CPT/HCPCS: 36415; 80048; 80076; 82150; 83690; 85025; 86850; 86900; 86901

== ENCOUNTER 2024-04-12 00:22 | Day surgery (SDC) | payer MEDICARE, OTHER, SELFPAY ==
[2024-03-31 14:30] VITALS: BMI 40.8
--- NOTE | 2024-03-31 14:41 | PC.NURSE ---
Report to the Outpatient Waiting Room, entrance under the green pavilion located off [facility], at time ___10:00am__on date _04/12/24 . Planned Procedure Time: ___12:00pm .? Time changes happen often and if your time is changed the preop area will call you the afternoon before. - You and your visitor will be asked to self-screen and do not enter if you have any COVID symptoms. Please call surgeon if you need to reschedule. - A mask is optional within the hospital at this time. Patients may have clear liquids (water, carbonated beverages, clear teas, apple juice) until 3 hours prior to surgery with a maximum of 20 ounces. - No food from midnight until time of surgery and no smoking (0900am) Take only the following medications with a SIP of water on the morning of surgery: __Gabapentin, Oxybutin as needed DO NOT STOP ANY OF YOUR OTHER PRESCRIPTION MEDICATIONS PRIOR TO SURGERY EXCEPT THE FOLLOWING HOLD the Plavix for 5 days prior to surgery per Dr. Hutton, date to take last dose is 04/06/24. Medications to discontinue per physician Hold all vitamins and supplements for 3 days prior to surgery per Anesthesia Date to take last dose 04/08/24 Please no make-up, nail pitcairn islander, hairspray, perfume, deodorant, or body powder the day of surgery.? No jewelry (including any body piercings) or valuables the day of surgery, leave them at home.? Please take a shower or bath the night before, or the morning of, surgery with an antibacterial soap.?(Dial ) Wear comfortable, loose fitting clothing.? - Jewelry must be removed prior to entering the operating room.? Rings and piercings that are not removed may be cut off. - The hospital will not accept responsibility for valuables.? - Please leave all valuables, including medications, at home the day of surgery. If you are going home after surgery, a licensed pick up driver must drive you home.? - NO public transportation without another adult if you receive anesthesia. - We recommend that an adult stay with you for 24 hours following discharge. - We also recommend that you do not drive, make important decision, drink alcoholic beverages, or take any drugs that were not prescribed by your health care provider for at least 24 hours after your discharge time. Follow any additional instructions given to you from your surgeon. Telephone instructions given to ___patient and asked if any additional questions and then verbalized understanding. Patient advised to call surgeon office or pre surgery nurse liaison [phone] if any additional questions.
--- NOTE | 2024-04-11 12:52 | PM.SD2 ---
Same Day Admit/Disch: HPI History of Present Illness Chief complaint: Aculculous Chronic Cholecystitis Narrative: Josue Crawford is a 74 year old male who has had several episodes of postprandial epigastric abdominal pain associated with nausea and vomiting. CT scan and ultrasound of the gallbladder did not show gallstones. By ultrasound, common bile duct was 3 mm diameter. With the strict low-fat diet, patient has had the severe pain resolved but still gets nauseated after nearly every meal. He had an hepatobiliary scan which showed a very low gallbladder ejection fraction of only 5%. After discussion in the office, he is taken to surgery now for laparoscopic cholecystectomy. He also is noted to have had a family history of factor 5 Leiden with multiple clotting episodes in family members. He it has the heterozygous factor 5 Leiden and takes Plavix chronically. This has been stopped for surgery. He is also an insulin-dependent diabetic and has hypertension, morbid obesity. [facility] Past Medical History Medical History (Updated 04/12/24 @ 11:45 by Jonnie Morin CRNA) Diabetes Diabetic neuropathy Factor V Leiden History of pyloric stenosis as a child Hyperlipidemia Kidney stones Morbid obesity with BMI of 40.0-44.9, adult JOHN (obstructive sleep apnea) With BiPAP use Peripheral neuropathy Pyloric stenosis Surgical History Surgical History H/O hemorrhoidectomy History of hernia repair Umbilical hernia repair History of local excision of skin lesion Excision 1 cm left lateral anal skin lesion 05/19/21 Family History Family History Father Cerebrovascular accident Heart disease Mother Breast cancer Sibling Acute myocardial infarction Social History Social History Social History: Patient lives in [place] with his of 53 years. They raised 2 sons. 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 He used to smoke a cigar or pipe on occasion for about 10 years but quit around 2004. He used to chew tobacco for 15-20 years but quit in 2018. He denies any significant alcohol use. Code status: Full code Surrogate decision maker: Smoking status: Former smoker Tobacco type: pipe and cigars Smokeless tobacco user: chewing tobacco Second hand tobacco smoke exposure: No Smoking end date: 06/14/17 Additional smoking assessment comments: Quit chewing 2019 Alcohol intake: never Drinks per week: 1 Alcohol use details: 1/MONTH Substance use: never Substance use type: does not use Do You Feel Safe in your Home?: Yes Lack of Transportation: No Lack of Food: Never True Current Housing: I Have Housing Concerned About Future Housing: No Difficulty Paying Gas/Electric Bills: No Difficulty Paying for Meds: No Currently Unemployed: No Education: Associate Degree Difficulty w/ Childcare or Family Care: No Living arrangements: with family Additional living arrangements comments: Spiritual care concerns: No Same Day Admit/Disch: Med Pre-admit Medications Home Medications Medication Instructions Recorded Confirmed Type clopidogrel 75 mg tablet (Plavix) 75 mg PO HS 01/01/20 03/31/24 History gabapentin 300 mg capsule 300 mg PO BID 01/01/20 03/31/24 History oxybutynin chloride 5 mg tablet 5 mg PO HS 01/01/20 03/31/24 History insulin degludec 100 unit/mL (3 75 unit subcut HS 05/05/21 03/31/24 History mL) subcutaneous pen (Tresiba FlexTouch U-100 insulin) lisinopril 5 mg tablet 2.5 mg PO DAILY 05/05/21 03/31/24 History montelukast 10 mg tablet 10 mg PO DAILY 05/05/21 03/31/24 History primidone 50 mg tablet 50 mg PO DAILY 05/05/21 03/31/24 History tamsulosin 0.4 mg capsule 0.4 mg PO BID 04/23/23 03/31/24 History pantoprazole 40 mg tablet,delayed 40 mg PO DAILY 03/31/24 03/31/24 History release amoxicillin 875 mg-potassium 1 tablet PO Q12H 5 days #10 tabs 04/13/24 Rx clavulanate 125 mg tablet oxycodone-acetaminophen 5 mg-325 1 tablet PO Q6H PRN Pain Rated 4-6 04/13/24 Rx mg tablet #10 tabs Review of Systems Review of Systems All systems reviewed & are unremarkable except as noted in HPI and below (HPI and those items noted below) Constitutional Constitutional: Denies chills and Denies fever(s) Cardiovascular Cardiovascular: Denies chest pain, Denies diaphoresis, Denies dyspnea and Denies paroxysmal nocturnal dyspnea Respiratory Respiratory: Denies chest congestion, Denies cough and Denies dyspnea Integumentary/Breasts Skin/Breast: Denies lesions and Denies rash Exam Const: General: cooperative, comfortable, no acute distress, alert and awake Nutritional Appearance: obese Orientation/consciousness: patient oriented x3 and No confusion HENMT: Head: normocephalic and atraumatic Mouth: Yes Normal oral and palatal mucosa present Eyes: Conjunctivae: conjunctivae normal Pupils: Equal, round and reactive pupils present EOM: EOMs intact bilaterally Neck: Neck: normal visual inspection, no lymphadenopathy and nontender Resp: Effort & Inspection: normal respiratory effort Auscultation: clear to auscultation bilaterally Cardio: Rate: regular rate Rhythm: regular rhythm Heart sounds: no gallops, no murmurs and no rubs GI: Inspection: non-distended, obesity, scar (Right paramedian scar from pyloromyotomy as an infant) and visible herniation (Diastasis recti, umbilical hernia) GI Palp: Yes Soft to palpation, No Tenderness to palpation present (GI), No Hepatomegaly present, No Splenomegaly present and Yes Hernia present umbilical < 3 cm (1 cm reducible umbilical hernia defect) Skin: Lesions: no lesions Rashes: no rashes Neuro: General: no focal motor deficits and CN's II-XI intact bilaterally Cranial nerves: Yes Equal, round and reactive pupils present, Yes Bilaterally intact EOM present, Yes facial symmetry and Yes Midline tongue present Speech: normal speech Motor exam (neuro): 5/5 motor strength present throughout and Motor abnormalities not present Extrem: General: no clubbing, cyanosis or edema and edema Psych: Affect: normal affect Thought process: Normal thought process present Insight: Good insight present (Psych) DS: Summary Hospital Course Hospital Course: Patient's surgery was much more difficult than expected. He had to have a drain placed and was observed overnight. He was able to be discharged the day after surgery feeling very good but will keep the drain until he is seen in my office in 1 week. Status at Discharge Functional status at discharge: independent ambulation Overall status at discharge: patient is progressing back to baseline Time Spent with Patient Time attestation: Total time spent providing and/or coordinating discharge services: Time spent: Less than 30 minutes DS: Admitting Diagnosis Discharge Date 04/12/2024 Admitting Diagnosis Acalculous chronic cholecystitis-plan to proceed with laparoscopic cholecystectomy under general anesthesia. The procedure, risks, benefits, alternatives, as well as the usual length of surgery and length of recovery have been discussed. All questions have been answered. He understands and agrees to go ahead. Insulin-dependent diabetes mellitus Heterozygous factor 5 Leiden Chronic anti thrombotic therapy with Plavix Essential hypertension Morbid obesity DS: Discharge Diagnosis Discharge Diagnosis (1) Chronic cholecystitis without calculus: Code(s): K81.1 - Chronic cholecystitis Status: Acute Assessment and Plan: Laparoscopic cholecystectomy with very long procedure, blood loss of 200 cc, superficial bile duct on the surface of the liver, postoperative drain placement. Very difficult procedure but patient doing well postop day 1 and discharged with his right upper quadrant Jose Luis drain. Follow-up with me in 1 week (2) Factor 5 Leiden mutation, heterozygous: Code(s): D68.51 - Activated protein C resistance Status: Acute Assessment and Plan: Resume Plavix tomorrow. 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 HUTTON 1. VISHAL drain care: Keep drain and dressing dry. Empty and record output daily. Bring this paper into your follow-up appointment. May change gauze dressing 2. Call office for: Wound increasingly painful or bleeding Vomiting Fever of greater than 101 degrees 3. Expect some blood on dressing and old blood on skin. 4. If no bowel movement for three days, take 1 oz. (30 ml) Milk of Magnesia, if no results, take Fleets enema. 5. No heavy lifting > 10-15 pounds x d 2-3 weeks for laparoscopic cholecystectomy. 6. No driving for 3 days or while taking narcotic pain medications. 7. DRINK plenty of fluids at home. 8. Up walking 10-30 minutes three times per day. 9. Resume previous home medications. 10. Follow-up in the office with Dr. Hutton next . I have asked the office to schedule an appointment and they should be calling you within the next few days. Call with any questions. [phone] 11. Oral pain medications prescription sent to the pharmacy. 12. NUTRITION: Start out by drinking fluids and increase your diet as tolerated. If you experience nausea, try dry toast, crackers, and 7-UP. If nausea or vomiting persists, contact your surgeon?s office. Patient Instructions: Antibiotic Form, Low Fat Diet (DC) Stand Alone Forms: General Discharge Instructions Follow-up/Referrals: Alex Hutton MD [Physician] - 1 Week Discharge Medications: New oxycodone-acetaminophen 5-325 mg Tablet 1 tablet PO Q6H PRN (Reason: Pain Rated 4-6) Qty: 10 0RF amoxicillin-pot clavulanate 875-125 mg tablet 1 tablet PO Q12H 5 Days Qty: 10 0RF Continued clopidogrel [Plavix] 75 mg Tablet 75 mg PO HS Patient Comments: Hold this 5 days prior to surgery last dose 04/06/24 gabapentin 300 mg Capsule 300 mg PO BID oxybutynin chloride 5 mg Tablet 5 mg PO HS insulin degludec [Tresiba FlexTouch U-100] 100 unit/mL (3 mL) insulin pen 75 unit SUBCUT HS primidone 50 mg tablet 50 mg PO DAILY Patient Comments: For tremors montelukast 10 mg tablet 10 mg PO DAILY lisinopril 5 mg Tablet 2.5 mg PO DAILY Hold Instructions: HOLD - resume when okay with your doctor tamsulosin 0.4 mg capsule 0.4 mg PO BID pantoprazole 40 mg tablet,delayed release (DR/EC) 40 mg PO DAILY
[2024-04-12] VITALS (11 sets, daily range): BP systolic 131–155; BP diastolic 59–74; PULSE 49–67; RESP 12–20; TEMP 36.2–36.4; O2SAT 96–100; BMI 39.4
[2024-04-12 10:15] LABS: Glucose Point of Care 136 mg/dl (65-105)
[2024-04-12] MEDS: LACTATED RINGERS 1,000 ML 30 ML IV CONT ×2 (10:30→15:21)
[2024-04-12] MEDS: KETOROLAC 15 MG/ML VIAL (*BKC) IV PUSH (11:01)
[2024-04-12] MEDS: ACETAMINOPHEN 500 MG TABLET 1000 MG PO (11:01)
--- NOTE | 2024-04-12 11:44 | WPDANESEPPF ---
Anes - Initial Pre Proc Eval Procedure: Operation Date: 04/12/24 12:00 Proposed Procedures p Laparoscopic Cholecystectomy - Alex Hutton MD Date/Time: 04/12/24 11:44 Surgeon: Alex Hutton MD Pre Op Diagnosis: Aculculous Chronic Cholecystitis Patient Data Age: 74 Gender: M Height: 1.78 m Weight: 129 kg Allergies Allergy/AdvReac Type Severity Reaction Status Date / Time No Known Allergies Allergy Verified 03/31/24 14:25 Home Medications Medication Instructions Recorded Confirmed Type clopidogrel 75 mg tablet (Plavix) 75 mg PO HS 01/01/20 03/31/24 History gabapentin 300 mg capsule 300 mg PO BID 01/01/20 03/31/24 History oxybutynin chloride 5 mg tablet 5 mg PO HS 01/01/20 03/31/24 History insulin degludec 100 unit/mL (3 75 unit subcut HS 05/05/21 03/31/24 History mL) subcutaneous pen (Tresiba FlexTouch U-100 insulin) lisinopril 5 mg tablet 2.5 mg PO DAILY 05/05/21 03/31/24 History montelukast 10 mg tablet 10 mg PO DAILY 05/05/21 03/31/24 History primidone 50 mg tablet 50 mg PO DAILY 05/05/21 03/31/24 History tamsulosin 0.4 mg capsule 0.4 mg PO BID 04/23/23 03/31/24 History pantoprazole 40 mg tablet,delayed 40 mg PO DAILY 03/31/24 03/31/24 History release Laboratory Tests 04/12/24 04/12/24 10:13 10:15 PT 14.0 Seconds (11.1-14.7) INR 1.0 APTT 25.0 Seconds (22.3-36.8) POC Capillary Glucose 136 H mg/dl (65-105) Patient hx anesthesia problems: none Family hx anesthesia problems: none Results Review: All pre-operative results and documents have been reviewed as part of the pre-operative evaluation. [facility] Past Medical History Medical History (Updated 04/12/24 @ 11:45 by Jonnie Morin CRNA) Diabetes Diabetic neuropathy Factor V Leiden History of pyloric stenosis as a child Hyperlipidemia Kidney stones Morbid obesity with BMI of 40.0-44.9, adult JOHN (obstructive sleep apnea) With BiPAP use Peripheral neuropathy Pyloric stenosis Surgical History Surgical History H/O hemorrhoidectomy History of hernia repair Umbilical hernia repair History of local excision of skin lesion Excision 1 cm left lateral anal skin lesion 05/19/21 Family History Family History Father Cerebrovascular accident Heart disease Mother Breast cancer Sibling Acute myocardial infarction Social History Social History Social History: Patient lives in [place] with his of 53 years. They raised 2 sons. 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 He used to smoke a cigar or pipe on occasion for about 10 years but quit around 2004. He used to chew tobacco for 15-20 years but quit in 2018. He denies any significant alcohol use. Code status: Full code Surrogate decision maker: Smoking status: Former smoker Tobacco type: pipe and cigars Smokeless tobacco user: chewing tobacco Second hand tobacco smoke exposure: No Smoking end date: 06/14/17 Additional smoking assessment comments: Quit chewing 2019 Alcohol intake: current Drinks per week: 1 Alcohol use details: 1/MONTH Substance use: never Substance use type: does not use Lack of Transportation: No Lack of Food: Never True Current Housing: I Have Housing Concerned About Future Housing: No Difficulty Paying Gas/Electric Bills: No Difficulty Paying for Meds: No Currently Unemployed: No Education: Associate Degree Difficulty w/ Childcare or Family Care: No Living arrangements: with family Additional living arrangements comments: Spiritual care concerns: No Anes - Eval Final PreProcedure Day of Procedure 04/12/24 11:44 Patient weight: morbidly obese Heart: regular rate and rhythm Lungs: clear to auscultation Airway: Mallampati scale class II Neurological: alert and oriented Last oral intake: >/= 8 hours ASA classification: III Emergent: no Anesthetic plan: proceed Anesthesia type and monitoring: general ETT Results Review: All pre-operative results and documents have been reviewed as part of the pre-operative evaluation. Informed Consent: The patient's anesthetic plan and its attendant risks and benefits were discussed with the patient/family/POA. Questions were solicited and answers provided to the satisfaction of the patient/family/POA.
--- NOTE | 2024-04-12 12:09 | WPDHPUPDATE1 ---
History and Physical Update Update Date/Time: 04/12/24 12:09 History and Physical has been reviewed, including an updated exam of the patient. There are NO changes in the patient's condition. Risks, benefits, and alternatives have been discussed and questions answered. Patient agrees to proceed with procedure.
[2024-04-12] MEDS: ceFAZolin 3 GM/D5W 100 ML 100 ML IVPB (12:37)
[2024-04-12] MEDS: BUPIVACAINE/EPINEPHRINE 0.5% 50 ML VIAL 20 ML INFILTRATE (13:14)
[2024-04-12 15:33] LABS: Glucose Point of Care 166 mg/dl (65-105)
[2024-04-12] MEDS: fentaNYL CITRATE INJ (*CRX) 100 MCG/2 ML VIAL 25 MCG IV PUSH ×4 (15:56→16:49)
--- NOTE | 2024-04-12 17:07 | W.PM.PROC2 ---
Procedure Note - Detailed Date of Procedure 04/12/24 Pre-op Diagnosis Acalculous Chronic Cholecystitis Post-op Diagnosis Same Procedure Performed Laparoscopic cholecystectomy Surgeon Alex Hutton MD Air Conditioning Mechanic Ailyn Foote [facility] Anesthesia General and Local Indications Patient has had multiple episodes of severe right upper quadrant postprandial abdominal pain after eating. After changing his diet to avoid fatty foods, he still gets nausea after eating most of his meals. His ultrasound and CT did not show gallstones. His HIDA scan however showed a very low gallbladder ejection fraction of 5%. He is taken to surgery now for laparoscopic cholecystectomy. Findings This was an exceptionally difficult cholecystectomy. After initial trocar placement, it was obvious there were many anterior abdominal wall adhesions which appeared to be for associated with his right paramedian scar from pyloroplasty as an . Turns out, he had a hernia repair here and had a cherokee of mesh that had the omental adhesions associated with it. Every bit of dissection in this patient had excessive bleeding. He had stopped his Plavix for 5 days before surgery but clearly still was having quite an anti thrombotic effect. Bleeding for this surgery was 8-10 times what I would normally expect. Blood loss was estimated at 200 cc. Once the anterior abdominal wall adhesions were taken down, the additional adhesions were much worse. He had some of the left lobe medial segment liver draped and attached over the top of the gallbladder that had to be dissected off. There were dense adhesions to the undersurface of the liver and to the gallbladder. As we got in the area of the infundibulum, the pylorus and duodenum were very adherent to the gallbladder. These had to be carefully dissected. With the oozing associated with all the dissection, visualization was difficult. We cleaned the camera many times but it was difficult to obtain a clear picture due to cautery and smoke. An extra 5 mm left-sided trocar had to be placed both to assist with taking down the anterior abdominal wall adhesions and to assist with retraction during the cholecystectomy. There was a superficial bile duct on the right side of the gallbladder fossa that had to be clipped. We had to place a postoperative drain due to the bleeding and potential for bile leakage. The cystic duct was large enough that it had to be ligated with a Vicryl endoloop to insure a secure ligation. Due to the superficial bile duct on the surface of the liver as well as the oozing of blood, a 19 Faroese Jose Luis drain had to be placed at the into the surgery. The surgery lasted over 2 hours which is 4 times as long as the typical laparoscopic cholecystectomy for me. Patient had to stay in the hospital overnight due to concerns about the difficulty of the surgery and the potential for bile leak or bleeding. Eventually the gallbladder was able to be freed so that the infundibulum could be grasped and retracted. I still had to put an extra port in the left lateral abdomen to retract the transverse colon and omentum posteriorly so that we could see the triangle of Calot. There were dense adhesions associated with the gallbladder which required excessive suctioning and very careful, patient dissection. Description of Procedure Patient was taken to surgery and induced into general anesthesia. The abdomen is prepped and draped. The initial trocar was placed just to the right of the xiphoid in the epigastric area. With intraperitoneal location insufflation was carried out. It was obvious that there were numerous omental adhesions in the right upper quadrant to the anterior abdominal wall. I placed a 5 mm port where the camera would normally be positioned. I also placed another 5 mm port in the left abdomen. These were both placed under direct visualization. These ports were then used by placing the camera in 1 and taking down the anterior abdominal wall adhesions with the other. Despite using cautery, all these adhesions bled presumably due to the anti thrombotic effect of Plavix. Attempts were made to make this is hemostatic as possible but there was still diffuse oozing with the dissection. It was noted that there was an underlay patch of mesh and probably a hernia repair as the main source of these adhesions. I had initially thought they were due to the pyloroplasty that had been done when he was an for pyloric stenosis. None the less, all the adhesions were taken down and we had good access to the right upper quadrant. However we could still not see the gallbladder as it was buried under more adhesions and a tongue of the medial segment of the left lobe of the liver that had draped itself over the top of the gallbladder. These adhesions also were very bloody and fairly dense. We used cautery with some sharp dissection and some blunt dissection. Despite trying to minimize bleeding, it was considerable and obscured our view significantly. The cautery use created a lot of smoke and was difficult getting a clear picture with the camera although we cleaned it multiple times. Eventually the upper half the gallbladder was freed. We used a laparoscopic aspirator and decompressed as much of the gallbladder as we could. The gallbladder was then retracted and we continued take adhesions off the wall of the gallbladder. Some of these were very thick and eventually it was obvious that this was pylorus and proximal duodenum. Very careful dissection was required to free these from the gallbladder. Eventually this was accomplished. During the gallbladder dissection, it was noted on the right edge of the gallbladder fossa, that there was bile leakage and evidence of a superficial bile duct running along the border of the right side of the gallbladder fossa. At the present time, we left this alone and continued with our gallbladder dissection. The dissection was again slow tedious and bloody. We dissected in the cholecystohepatic triangle and dissected out the cystic duct and cystic artery. The cystic duct seemed to be abnormally large even though there were no gallstones and no evidence of common duct stones. We continued this dissection and dissected the lower 3rd of the gallbladder off the liver such that critical view was achieved. I then securely clipped and divided the cystic artery. I did more dissection on the cystic duct. I placed a clip on the cystic duct very proximal to the gallbladder. I then divided the cystic duct. I used a Vicryl endoloop to ligate the into the cystic duct as this seemed to be much more secure than clips would be since the cystic duct was edematous and enlarged. The Vicryl endoloop was placed well and did a good job of ligating the cystic duct stump. I should point out that the left-sided 5 mm trocar was also instrumental in dissecting the infundibulum and triangle of Calot. We used a retractor through this port and placed posterior retraction on the transverse colon and omentum so that this could be exposed. Once the cystic duct and cystic artery had been divided, I then continued dissection of the gallbladder from the gallbladder fossa. I used the cautery to carefully dissect the peritoneum and the other gallbladder attachments to the liver. There was some superficial oozing from the liver which was controlled with cautery. Eventually the entire gallbladder was freed from the liver. The gallbladder was placed in an Endo-Catch bag retrieved through the 10 11 epigastric trocar site. The trocar site had to be dilated to accommodate the gallbladder as it was enlarged in the wall was quite thickened. I examined the gallbladder grossly and found no evidence of gallstones. It was sent to pathology in formalin. I replaced the epigastric trocar and then we reviewed the right upper quadrant and gallbladder fossa. Irrigation and suctioning were carried out. Additional cautery was used to achieve good hemostasis on the gallbladder fossa. We then turned our attention to the superficial bile duct on the right lateral aspect of the gallbladder fossa. This was on the surface the most medial aspect of the right lobe of the liver. It was still oozing and the outline of a so superficial bile duct running on the surface of the liver was able to be seen. I used clips and clipped this bile duct with 2 clips above and below the area of leakage. I then continued irrigation and suctioning of the area cleaning out thoroughly. We checked and rechecked clips and a seemed to be secure in their position. Once hemostasis was adequate and we had cleaned the area as best we could, a 19 Faroese Jose Luis drain was placed through the right lower most trocar into the peritoneal cavity. The drain was positioned in the subhepatic space to further drain any bloody fluid or any bile should a bile leak developed. The drain was sutured securely to the skin with 2-0 silk. We then evacuated CO2 and removed the trocar sleeves. The drain was placed to bulb suction. The fascia at the epigastric trocar site was closed with 0 Vicryl suture. All skin wounds were closed with subcuticular 4-0 Monocryl skin suture. Sponge and needle counts were correct x2. Patient was awakened and taken to recovery in good condition. Estimated Blood Loss -200 Drains Yes (Right upper quadrant Jose Luis drain in subhepatic space) Packing No Pathology Yes (Gallbladder) Complications None Condition Stable Disposition PACU [facility] Billing Surgery - Charge Forward: Surgery Billing (Laparoscopic cholecystectomy-add 22 modifier for increased difficulty)
[2024-04-12] MEDS: TAMSULOSIN HCL 0.4 MG CAPSULE PO (17:21)
[2024-04-12] MEDS: GABAPENTIN 300 MG CAPSULE PO (17:21)
[2024-04-12] MEDS: LACTATED RINGERS 1,000 ML 100 ML IV CONT (17:21)
--- NOTE | 2024-04-12 17:26 | ADMGEN ---
This patient, Josue Crawford, was admitted to Medical Room 253-01. Patient/family oriented to hospital policies and general routines including ID bracelet, bed and alarms, visiting hours, pain management, procedures, bathroom and other care routines, personal items, smoking policy, room service/diet, and visiting hours. Information on how to activate the Rapid Response Team has been discussed. Patient/Family are encouraged to report perceived risks to care and to ask questions if they do not understand what they are told or what they should do.
[2024-04-12] MEDS: oxyBUTYnin CHLORIDE 5 MG TABLET PO (19:47)
[2024-04-12] MEDS: oxyCODONE/ACETAMINOPHEN (*CRX) 10-325 MG TABLET 1 TAB PO (19:47)
[2024-04-12] MEDS: CLOPIDOGREL BISULFATE 75 MG TABLET PO (19:47)
[2024-04-12 21:01] LABS: Glucose Point of Care 292 mg/dl (65-105)
[2024-04-12] MEDS: INSULIN GLARGINE (*BKC) 100 UNITS/ML 75 UNITS SUB-Q (21:21)
[2024-04-12] MEDS: ENOXAPARIN 30 MG/0.3 ML SYRINGE SUB-Q (21:22)
[2024-04-12] MEDS: INSULIN ASPART (*BKC) 100 UNITS/ML SUB-Q (21:22)
[2024-04-13] MEDS: oxyCODONE/ACETAMINOPHEN (*CRX) 5-325 MG TABLET 1 TABLET PO (01:34)
[2024-04-13 02:28] VITALS: BP 121/65; PULSE 60; RESP 18; TEMP 36.8; O2SAT 96
[2024-04-13] MEDS: oxyCODONE/ACETAMINOPHEN (*CRX) 10-325 MG TABLET 1 TAB PO (06:09)
[2024-04-13 06:15] VITALS: BP 131/54; PULSE 60; RESP 20; TEMP 36.7; O2SAT 96
[2024-04-13 06:24] LABS: Hematocrit 35.3 % (42.0-52.0); Hemoglobin 11.3 g/dL (14.0-18.0); Immature Platelet Fraction Pct 6.9 % (0.9-11.2); Mean Corpuscular Hemoglobin 27.6 pg (26-34); Mean Corpuscular Volume 86.3 fl (80-100); Mean Platelet Volume 11.8 fl (7.4-10.4); Platelet Count Result 126 k/mm3 (150-375); Red Blood Count 4.09 M/mm3 (4.6-6.20); Red Cell Distribution Width 14.4 % (11.5-14.5); White Blood Count 5.4 K/mm3 (4.5-10.0)
[2024-04-13 06:36] LABS: Alanine Aminotransferase 42 U/L (6-50); Albumin Level 3.3 g/dL (3.5-5.1); Alkaline Phosphatase 59 U/L (38-126); Anion Gap 4 mmol/L (4-12); Aspartate Amino Transferase 49 U/L (17-59); Bilirubin,Total 0.5 mg/dL (0.2-1.3); Blood Urea Nitrogen 25 mg/dL (9-20); Carbon Dioxide 28 mmol/L (22-30); Chloride 107 mmol/L (98-107); Estimated CRCL calculation 55 ml/min; Estimated Glomerular Filt Rate 50; Glucose 103 mg/dL (65-110); Potassium 4.5 mmol/L (3.4-5.0); Sodium 139 mmol/L (137-145)
[2024-04-13 07:59] LABS: Glucose Point of Care 83 mg/dl (65-105)
[2024-04-13] MEDS: GABAPENTIN 300 MG CAPSULE PO (09:31)
[2024-04-13] MEDS: lisinopriL 2.5 MG TABLET PO (09:31)
[2024-04-13] MEDS: MONTELUKAST SODIUM 10 MG TABLET PO (09:31)
[2024-04-13] MEDS: TAMSULOSIN HCL 0.4 MG CAPSULE PO (09:31)
[2024-04-13] MEDS: PRIMIDONE 50 MG TABLET PO (09:31)
[2024-04-13] MEDS: PANTOPRAZOLE 40 MG TABLET PO (09:31)
[2024-04-13] MEDS: ENOXAPARIN 40 MG/0.4 ML SYRINGE SUB-Q (09:32)
[2024-04-13 09:45] VITALS: O2SAT 97
[2024-04-13 10:37] VITALS: BP 116/46; PULSE 68; RESP 18; TEMP 36.6; O2SAT 98
[2024-04-13 12:14] LABS: Glucose Point of Care 213 mg/dl (65-105)
[2024-04-13] MEDS: INSULIN ASPART (*BKC) 100 UNITS/ML SUB-Q (12:25)
--- NOTE | 2024-04-13 13:29 | P.DS_ITS ---
DS: Admitting Diagnosis Discharge Date 04/13/2024 Admitting Diagnosis Acalculous chronic cholecystitis Insulin-dependent diabetes mellitus Heterozygous factor 5 leiden Chronic antithrombotic therapy with Plavix Morbid obesity DS: Discharge Diagnosis Discharge Diagnosis (1) Chronic cholecystitis without calculus: Code(s): K81.1 - Chronic cholecystitis Status: Acute (2) Factor 5 Leiden mutation, heterozygous: Code(s): D68.51 - Activated protein C resistance Status: Acute (3) Antiplatelet or antithrombotic long-term use: Code(s): Z79.02 - local intermodal truck driver (current) use of antithrombotics/antiplatelets Status: Acute (4) Morbid obesity: Code(s): E66.01 - Morbid (severe) obesity due to excess calories Status: Acute (5) Diabetes: Qualifiers: Diabetes mellitus complication status: without complication Diabetes mellitus care home insulin use: with terminal operations supervisor use Diabetes mellitus type: type 2 Qualified Code(s): E11.9 - Type 2 diabetes mellitus without complications; Z79.4 - skilled nursing (current) use of insulin Code(s): E11.9 - Type 2 diabetes mellitus without complications Status: Acute DS: Summary Hospital Course Reason for hospitalization: Josue Crawford is a 74 year old male who has had several episodes of postprandial epigastric abdominal pain associated with nausea and vomiting. CT scan and ultrasound of the gallbladder did not show gallstones. By ultrasound, common bile duct was 3 mm diameter. With the strict low-fat diet, patient has had the severe pain resolved but still gets nauseated after nearly every meal. He had an hepatobiliary scan which showed a very low gallbladder ejection fraction of only 5%. After discussion in the office, he was scheduled for a laparoscopic cholecystectomy with Dr. Thompson. He also is noted to have had a family history of factor 5 Leiden with multiple clotting episodes in family members. He has the heterozygous factor 5 Leiden and takes Plavix chronically. This has been stopped for surgery. He is also an insulin-dependent diabetic and has hypertension, morbid obesity. Hospital Course: The patient underwent laparoscopic cholecystectomy by Dr. Thompson on 04/12/2024. The surgery was extremely difficult (see operative note) and he had a VISHAL drain placed during surgery. He was kept overnight for observation and was seen this morning. His diet has been advanced and he is now tolerating a low-fat diet. He is having minimal pain this morning. He reports some mild pain near the VISHAL drain in the right lower quadrant. Reports having also some mild pain at the epigastric incision when getting up out of bed. No nausea or vomiting. He is ambulating well in the room. He is voiding without difficulty. His VISHAL drain has a small amount of bloody drainage with no bilious-appearing fluid. He is stable for discharge today after discussing the case with Dr. Thompson. We will discharge him with the VISHAL drain and have him follow-up next week in the office for drain removal. I discussed all instructions with him and his . Nursing will educate him on drain care prior to discharge. Status at Discharge Functional status at discharge: independent ambulation Overall status at discharge: patient is progressing back to baseline Time Spent with Patient Time attestation: Total time spent providing and/or coordinating discharge services: Time spent: Less than 30 minutes Exam Const: General: comfortable and no acute distress Resp: Effort & Inspection: normal respiratory effort Auscultation: clear to auscultation bilaterally Cardio: Rate: regular rate Rhythm: regular rhythm GI: Inspection: non-distended, incision (incisions dry and intact) and other (RLQ VISHAL drain with minimal bloody drainage) GI Palp: Yes Soft to palpation, Yes Tenderness to palpation present (GI) (incisional) and No Guarding due to palpation present (GI) Auscultation: normal bowel sounds Neuro: General: moves all extremities and no focal motor deficits Extrem: General: no calf tenderness and no edema Psych: Mental Status: mental status grossly normal Insight: Good insight present (Psych) DS: Data Data Completed and Pending Pending studies at discharge: Pending at discharge 04/12/24 12:47 Surgical [PTH] Routine Labs on day of discharge: Labs from last 24 hours 04/13/24 04/13/24 04/13/24 12:09 07:44 06:00 WBC 5.4 RBC 4.09 L Hgb 11.3 L Hct 35.3 L MCV 86.3 MCH 27.6 MCHC 32.0 RDW 14.4 Plt Count 126 L MPV 11.8 H % Immature Plt Fraction 6.9 Sodium 139 Potassium 4.5 Chloride 107 Carbon Dioxide 28 Anion Gap 4 BUN 25 H Creatinine 1.40 H Estim Creat Clear Calc 55 Estimated GFR 50 L Glucose 103 POC Capillary Glucose 213 H 83 Calcium 9.0 Total Bilirubin 0.5 AST 49 ALT 42 Alkaline Phosphatase 59 Total Protein 6.0 L Albumin 3.3 L 04/12/24 04/12/24 20:27 15:25 WBC RBC Hgb Hct MCV MCH MCHC RDW Plt Count MPV % Immature Plt Fraction Sodium Potassium Chloride Carbon Dioxide Anion Gap BUN Creatinine Estim Creat Clear Calc Estimated GFR Glucose POC Capillary Glucose 292 H 166 H Calcium Total Bilirubin AST ALT Alkaline Phosphatase Total Protein Albumin Procedures/Treatments: Procedures Operation Date: 04/12/24 12:00 Actual Procedure Side Surgeon p Laparoscopic Cholecystectomy Not Applicable Alex Thompson MD Discharge Plan Discharge Patient Disposition: Home, Self-Care Discharge Instructions: DISCHARGE INSTRUCTION SHEET FOR HERNIA AND LAP AIDA SURGERIES DR. THOMPSON 1. VISHAL drain care: Keep drain and dressing dry. Empty and record output daily. Bring this paper into your follow-up appointment. May change gauze dressing 2. Call office for: * Wound increasingly painful or bleeding * Vomiting * Fever of greater than 101 degrees 3. Expect some blood on dressing and old blood on skin. 4. If no bowel movement for three days, take 1 oz. (30 ml) Milk of Magnesia, if no results, take Fleets enema. 5. No heavy lifting > 10-15 pounds x d 2-3 weeks for laparoscopic cholecystectomy. 6. No driving for 3 days or while taking narcotic pain medications. 7. DRINK plenty of fluids at home. 8. Up walking 10-30 minutes three times per day. 9. Resume previous home medications. 10. Follow-up in the office with Dr. Thompson next . I have asked the office to schedule an appointment and they should be calling you within the next few days. Call with any questions. [phone] 11. Oral pain medications prescription sent to the pharmacy. 12. NUTRITION: Start out by drinking fluids and increase your diet as tolerated. If you experience nausea, try dry toast, crackers, and 7-UP. If nausea or vomiting persists, contact your surgeon?s office. Patient Instructions: Antibiotic Form, Low Fat Diet (DC) Stand Alone Forms: General Discharge Instructions Follow-up/Referrals: Alex Thompson MD [Physician] - 1 Week Discharge Medications: New oxycodone-acetaminophen 5-325 mg Tablet 1 tablet PO Q6H PRN (Reason: Pain Rated 4-6) Qty: 10 0RF Continued clopidogrel [Plavix] 75 mg Tablet 75 mg PO HS Patient Comments: Hold this 5 days prior to surgery last dose 04/06/24 gabapentin 300 mg Capsule 300 mg PO BID oxybutynin chloride 5 mg Tablet 5 mg PO HS insulin degludec [Tresiba FlexTouch U-100] 100 unit/mL (3 mL) insulin pen 75 unit SUBCUT HS primidone 50 mg tablet 50 mg PO DAILY Patient Comments: For tremors montelukast 10 mg tablet 10 mg PO DAILY lisinopril 5 mg Tablet 2.5 mg PO DAILY Hold Instructions: HOLD - resume when okay with your doctor tamsulosin 0.4 mg capsule 0.4 mg PO BID pantoprazole 40 mg tablet,delayed release (DR/EC) 40 mg PO DAILY Quality VTE Prophylaxis VTE prophylaxis: mechanical ordered and pharmacologic ordered
== END 2024-04-13 15:55 | disposition home or self-care (01) ==
LOC: ANHSURGERY 09:47 → ANH2MED 16:56
PROVIDERS: Nurse Anesthetist, Certified Registered; PCP Family Medicine; Visit Provider Surgery
PROC: 0FT44ZZ Resection of Gallbladder, Percutaneous Endoscopic Approach (ICD-10-PCS; CPT 47562; principal; 2024-04-12 12:00)
DX: K80.10 Calculus of gallbladder with chronic cholecystitis without obstruction (principal); K66.0 Peritoneal adhesions (postprocedural) (postinfection); G89.18 Other acute postprocedural pain; E78.5 Hyperlipidemia, unspecified; E11.40 Type 2 diabetes mellitus with diabetic neuropathy, unspecified; G47.33 Obstructive sleep apnea (adult) (pediatric); D68.51 Activated protein C resistance; G62.9 Polyneuropathy, unspecified; E66.01 Morbid (severe) obesity due to excess calories; Z68.39 Body mass index [BMI] 39.0-39.9, adult; Z99.89 Dependence on other enabling machines and devices; Z79.02 Long term (current) use of antithrombotics/antiplatelets; Z79.4 Long term (current) use of insulin; Z79.891 Long term (current) use of opiate analgesic; Z98.890 Other specified postprocedural states; Z87.891 Personal history of nicotine dependence; Z87.442 Personal history of urinary calculi; Z87.19 Personal history of other diseases of the digestive system; Z80.3 Family history of malignant neoplasm of breast; Z82.49 Family history of ischemic heart disease and other diseases of the circulatory system
CPT/HCPCS: 47562; 36415; 80053; 82948; 85027; 85055; 85610; 85730; 88304; A9270; J0690; J1100; J1650; J1815; J1885; J2250; J2405; J2704; J3010; J7120

== ENCOUNTER 2025-05-20 12:43 | Outpatient (CLI) | payer MEDICARE, OTHER, SELFPAY ==
--- OUTSIDE RECORDS SUMMARY | 2024-05-14 03:00 | XMS_ITS ---
Author Organization [facility] Address [address] [place] [address] Care Team Providers Care Reinforcing Steel Erector Name Role Phone Dr. Nora Linares Primary Care Provider [phone] Migration, Provider Unavailable Unavailable Allergies Allergen (clinical drug ingredient) Drug/Non Drug Allergy documented on EMR Reaction Allergy Type Onset Date Status semaglutide Ozempic (uncoded) nausea Allergy 11/20/2020 Active Levaquin Unknown Drug Allergy 10/31/2020 Active solifenacin VESIcare Unknown Drug Allergy 11/20/2020 Acti ve mirabegron Mirabegron rash Drug Allergy 11/20/2020 Acti ve Substance with penicillin structure and antibacterial mechanism of action (substance) Penicillins Unknown Drug Allergy 10/31/2020 Active rosuvastatin Rosuvastatin Delete Reason: Patient is not allergic. He takes this daily. Drug Allergy 03/09/2023 Inactive REASON FOR VISIT EMR-Jason Medications Medication SIG (Take, Route, Frequency, Duration) Notes Start Date End Date Status Tamsulosin HCl 0.4 MG Capsule 1 Oral two times a day; Duration: 0 06/16/2022 Active Xhance 93 MCG/ACT Exhaler Suspension 1 Nasal two times a day; Duration: 0 09/05/2023 Active valACYclovir HCl 1 GM Tablet 2 Oral as directed; Duration: 0 11/17/2022 Active Tresiba FlexTouch 200 UNIT/ML Solution Pen-injector 75 Subcutaneous every day; Duration: 90 12/15/2023 09/09/2024 Active pen needle, diabetic 32 gauge x 5/16 ; Duration: 0 *Reorder from [facility] for eRx and Interaction Alerts* 05/13/2022 Active Magnesium Oxide (Elemental) 400 MG Tablet 1 Oral every day; Duration: 0 03/28/2024 Active Clopidogrel Bisulfate 75 MG Tablet 1 Oral every day; Duration: 90 04/13/2024 07/11/2024 Active Pantoprazole Sodium 40 MG Tablet Delayed Release 1 Oral every day; Duration: 0 02/02/2024 Active Ferrous Sulfate 325 (65 Fe) MG Tablet 1 Oral every day; Duration: 0 03/28/2024 Active Social History Social History Additional Details Category Social Info Options Details Migrated Social History Migrated Social History Employment:Retired , Frequency of drinks:Drinks rarely , Marital status: , Tobacco history:Never smoker ,notes : past smokeless tobacco , Number of children:2 Encounters Encounter Location Date Provider Diagnosis [facility] [address] [place] [address] 05/14/2024 Provider Migration Plan Of Treatment Next Appt Details Provider Name:Dr. Nora urban, 08/06/2025 10:00:00 AM, [address], [place], [address], [phone] Provider Name:Dr. Nora urban, 10/15/2025 02:00:00 PM, [address], [place], [address], [phone] Progress Notes * Josue CRAWFORDDOB:[birth year] (75 yo M)Acc No.[id number]:05/14/2024 Patient: Josue REYES :1950 A ge:74 Y S ex:Male Phone: Address:[address] [place] [address], [phone] Subjective: * Chief Complaints: * E MR-Jason * Surgical History: colonoscopy ,notes : 2009 myringoplasty ,notes : Left Hernia repair ,notes : R ventral hernia with mesh 08/2000 cholecystectomy ,notes : Dr Hutton - rambo WNL 04/12/2024 Cystoscopy ,notes : Dr. Nelson - Cystoscopy with left retrograde pyelogram and left ureter stent placement. 04/24/23 * Family History: F ather: CAD. M other: Cancer, D iabetes mellitus Type 2. B kalina: CAD. S ister: CAD. * Social History: M igrated Social History: M igrated Social History: Employment:Retired,Frequency of drinks:Drinks rarely,Marital status:,Tobacco history:Never smoker ,notes : past smokeless tobacco,Number of children:2. * Medications: T akingpen needle, diabetic 32 gauge x 5/16 , Notes to Pharmacist: *Reorder from [facility] for eRx and Interaction Alerts*Xhance 93 MCG/ACT Exhaler Suspension 1 Nasal two times a day Tamsulosin HCl 0.4 MG Capsule 1 Oral two times a day Pantoprazole Sodium 40 MG Tablet Delayed Release 1 Oral every day Clopidogrel Bisulfate 75 MG Tablet 1 Oral every day , stop date 07/11/2024Ferrous Sulfate 325 (65 Fe) MG Tablet 1 Oral every day valACYclovir HCl 1 GM Tablet 2 Oral as directed Magnesium Oxide (Elemental) 400 MG Tablet 1 Oral every day Tresiba FlexTouch 200 UNIT/ML Solution Pen-injector 75 Subcutaneous every day , stop date 09/09/2024Taking pen needle, diabetic 32 gauge x 5/16 , Notes to Pharmacist: *Reorder from [facility] for eRx and Interaction Alerts*Taking Xhance 93 MCG/ACT Exhaler Suspension 1 Nasal two times a day Taking Tamsulosin HCl 0.4 MG Capsule 1 Oral two times a day Taking Pantoprazole Sodium 40 MG Tablet Delayed Release 1 Oral every day Taking Clopidogrel Bisulfate 75 MG Tablet 1 Oral every day , stop date 07/11/2024Taking Ferrous Sulfate 325 (65 Fe) MG Tablet 1 Oral every day Taking valACYclovir HCl 1 GM Tablet 2 Oral as directed Taking Magnesium Oxide (Elemental) 400 MG Tablet 1 Oral every day Taking Tresiba FlexTouch 200 UNIT/ML Solution Pen-injector 75 Subcutaneous every day , stop date 09/09/2024 * Allergies: L evaquin: Allergy - Onset Date 10/31/2020Ozempic: nausea - Allergy - Onset Date 11/20/2020enicillins: Allergy - Onset Date 10/31/2020Mirabegron: rash - Allergy - Onset Date 11/20/2020VESIcare: Allergy - Onset Date 11/20/2020 Objective: Past Vitals:* 02/02/2024 BP: 108/58 mm Hg, HR: 72 /mi n, Wt: 280.01 lbs, Wt-k.01 kg * 12/07/2023 BP: 120/68 mm Hg, HR: 67 /mi n, Oxygen sat %: 95 %, Wt: 279.50 lbs, Wt-k.78 kg * * Date:
--- NOTE | ~2025-05-20 | MR_ITS ---
EXAMINATION: MR knee RT wo con DATE: 05/20/2025 13:24 INDICATION: Right knee joint pain. TECHNIQUE: Magnetic resonance imaging (MRI) of the right knee was performed without intravenous contrast. Sequences included coronal PD-weighted FSE, coronal PD-weighted FS FSE, sagittal T2-weighted FSE, sagittal PD-weighted FS FSE and axial PD weighted fat saturated FSE. COMPARISON: None. FINDINGS: Medial compartment: Medial meniscus is normal. Articular cartilage is normal. Lateral compartment: There is focal increased intrasubstance signal within the inner third of the body lateral meniscus which is not been previously contacted articular surface equivocal for focal mucoid degeneration versus small tear of indeterminate morphology. Small partial-thickness chondral fissure without degenerative subchondral changes along the medial margin of the lateral tibial plateau at the junction with the cartilage along the shoulder the intercondylar eminence. Patellofemoral compartment: Deep chondral ulceration with underlying subarticular edema and cystlike changes at the cephalad aspect of the lateral patellar facet and apical ridge involving a small portion of the superolateral aspect of the medial patellar facet. Additional small region of partial-thickness chondral ulceration and deep fissuring with underlying subarticular cystlike change at the inferomedial aspect of the lateral patellar facet. Partial-thickness chondral ulceration and fissuring without degenerative subchondral changes at the medial patellar facet. Trochlear cartilage is normal. Ligaments and tendons: Anterior cruciate ligament is normal. At least partial tear of the posterior cruciate ligament which is thickened with amorphous increased intrasubstance signal. The medial collateral ligament and fibular collateral ligament complex are normal. The extensor mechanism is normal with a few horizontal bands of magic angle artifact extending across the distal patellar tendon. The visualized medial and lateral hamstring tendons as well as the iliotibial band are normal. Fluid: Likely reactive small right knee joint effusion at the suprapatellar pouch. No loose osteochondral bodies identified. Osseous/other: Normal marrow signal. No fracture or pathologic marrow replacing process. IMPRESSION: 1. At least partial tear of the posterior cruciate ligament. Correlate with physical exam to assess for degree of any residual functional integrity. 2. Indeterminate small focus of increased intrasubstance signal along the inner third of the body of the lateral meniscus equivocal for either mucoid degeneration or small meniscal tear of indeterminate morphology. 3. Mild osteoarthritis with small regions of moderate grade chondral malacia in the lateral compartment and with scattered high-grade patellar chondromalacia in the patellofemoral compartment. Reviewed, dictated and finalized at location A. LE COORDINATOR IMPRESSION: 1. At least partial tear of the posterior cruciate ligament. Correlate with phy sical exam to assess for degree of any residual functional integrity. 2. Indeterminate small focus of increased intrasubstance signal along the inner third of the body of the lateral meniscus equivocal for either mucoid degenera tion or small meniscal tear of indeterminate morphology. 3. Mild osteoarthritis with small regions of moderate grade chondral malacia in the lateral compartment and with scattered high-grade patellar chondromalacia in the patellofemoral compartment.
--- OUTSIDE RECORDS SUMMARY | 2025-05-20 12:47 | XMS_ITS | Patient Health Record ---
Author Organization [facility] Address [address] [place] [address] Care Team Providers Care Supervisor Mixing Name Role Phone Dr. Nora Linares Primary Care Provider [id number] Baltazar Contreras Unavailable [phone] Nora Michel Unavailable [phone] Allergies Allergen (clinical drug ingredient) Drug/Non Drug [...] takes this daily. Drug Allergy 03/09/2023 Inactive Results Component Value Reference Range Notes XR KNEE RT 3V Reviewed date:04/27/2025 04:44:59 PM Interpretation: Performing Lab: Notes/Report: [address] [place] [address] 3 VIEWS OF THE RIGHT KNEE Clinical History: Pain Comparison: None 3 views of the right knee demonstrate the bony elements to be intact. There is no evidence of fracture or dislocation. The surrounding soft tissues appear normal. IMPRESSION: No acute findings Ordered By: BALTAZAR CONTRERAS Interpreted By: Chidi Montenegro MD, 04/27/2025 12:27 PM Reason For Referral Reason Dr[facility] - Many family members go there and patient wants to establish DM2 care there. Diagnosis 1 Type 2 diabetes justino itus with diabetic neuropathy, unspecified (E11.40) Referral Organization [facility] Referring Provider First Name Dr. Melendez Referring Provider Last Name Humbird [facility] Special[facility] End[facility]inolog y General Notes Eusebia Cerrato 0 02/06/2025 03:16:13 PM CDT >Referral faxed to Dr. Loja [phone] Kaitlin 02/14/2025 04:26:03 PM CDT >consult note in chart Referral Priority Routine Referral Appointment Date 02/14/2025 Medications Medication SIG (Take, Route, Frequency, Duration) Notes Start Date End Date Status HumaLOG KwikPen 100 UNIT/ML Solution Pen-injector 15 units before main meals adjust to 20 units if glucose >200, 25 units if >200 Subcutaneous 3 times a day ordered by ENDO 02/14/2025 Active Pantoprazole Sodium 20 MG Tablet Delayed Release 1 tablet 1/2 to 1 hour before morning meal Orally Once a day; Duration: 30 days reduced from 40mg daily. 02/02/2025 Active Pravastatin Sodium 10 MG Tablet 1 tablet Orally Once a day; Duration: 30 days 04/27/2025 Active Albuterol Sulfate HFA 108 (90 Base) MCG/ACT Aerosol Solution 1-2 puffs Inhalation every 4-6 hours; Duration: 30 days As needed 10/04/2024 Unknown Mounjaro 2.5 MG/0.5ML Solution Auto-injector as directed Subcutaneous for 4 weeks, then increase to 5 mg ordered by ENDO ordered by ENDO 02/14/2025 Unknown Insulin Degludec 100 UNIT/ML Solution 75 units Subcutaneous daily; Duration: 30 days Unknown Magnesium Oxide (Elemental) 400 MG Tablet 1 Oral every day; Duration: 0 03/28/2024 Active Xhance 93 MCG/ACT Exhaler Suspension 1 Nasal two times a day; Duration: 0 09/05/2023 Unknown Lisinopril 2.5 MG Tablet 1 tablet Orally Once a day; Duration: 90 days Active Primidone 50 MG Tablet 1 tablet at bedtime Orally Once a day; Duration: 90 days Active Magnesium Oxide 400 MG Tablet 1 tablet with food Orally twice a day Active Tamsulosin HCl 0.4 MG Capsule 1 Oral two times a day; Duration: 90 days Active Tresiba FlexTouch 100 UNIT/ML Solution Pen-injector as directed Subcutaneous Active Gabapentin 300 MG Capsule 1 capsule Orally twice a day; Duration: 90 days Active metFORMIN HCl ER 500 MG Tablet Extended Release 24 Hour 2 tablets Orally daily in am, ordered by ENDO 02/14/2025 Unknown Gemtesa 75 MG Tablet 1 tablet Orally Once a day; Duration: 30 days 02/02/2025 Unknown Aspirin 81 81 MG Tablet Chewable 1 tablet Orally Once a day Active pen needle, diabetic 32 gauge x 5/16 ; Duration: 0 *Reorder from [employer] for eRx and Interaction Alerts* 05/13/2022 Unknown Immunizations Vaccine Route Administration Date Status Comme nts COVID 19 Vaccine mRNA, Comirnaty IM Intramuscular 04/27/2025 Administered Influenza, high dose seasonal IM Intramuscular 04/27/2025 Administered Influenza, high-dose seasonal, quadrivalent, preservative free >65 yrs IM Intramuscular 05/09/2019 Administered Source VFC Code: : Influenza, high-dose seasonal, quadrivalent, preservative free >65 yrs Unknown 04/24/2020 Administered Source VFC Code: : Influenza, high-dose seasonal, quadrivalent, preservative free >65 yrs IM Intramuscular 04/03/2021 Administered Source VFC Code: : Influenza, high-dose seasonal, quadrivalent, preservative free >65 yrs IM Intramuscular 04/13/2022 Administered ,sourcename : New immunization record ,immstatus : Complete Source VFC Code: : Moderna Covid-19 Vaccine 1st dose Unknown 07/13/2020 Administered Source VFC Code: : Moderna Covid-19 Vaccine 1st dose Unknown 08/10/2020 Administered Source VFC Code: : Moderna Covid-19 Vaccine 1st dose IM Intramuscular 04/16/2021 Administered Source VFC Code: : Pneumococcal conjugate PCV 13 IM Intramuscular 08/16/2020 Administered Source VFC Code: : Shingrix IM Intramuscular 02/02/2025 Administered Tdap IM Intramuscular 06/29/2015 Administered Source VFC Code: : Tdap Unknown 11/20/2019 Administered Source VFC Code: : Zoster SC Subcutaneous 08/22/2013 Administered Source VFC Code: : Zoster IM Intramuscular 03/03/2023 Administered ,[facility] ename : New immunization record ,immstatus : Complete Social History Tobacco Use: Social History Observation Description Date Details (start date - stop date) Never Smoker NA - NA Social History Household: Social Info Question Answer Notes Household Marital status: Drug/Alcohol: Social Info Question Answer Notes AUDIT-C (Standard) Did you have a drink containing alcohol in the past year? Yes How often did you have a drink containing alcohol in the past year? 2 to 4 times a month (2 points) How many drinks did you have on a typical day when you were drinking in the past year? 1 or 2 drinks (0 point) How often did you have six or more drinks on one occasion in the past year? Never (0 point) Points 2 Interpretation Negative Tobacco Use: Social Info Question Answer Notes Tobacco Control (Standard) Tobacco use: Nonsmoker Additional Details Category Social Info Options Details Miscellaneous: Occupation: retired Section Notes: Pt noted they used smokeless tobacco Pt noted they used smokeless tobacco Problems Problem Type SNOMED Code ICD Code Onset Dates Problem Status W/U Status Risk Notes Problem Overactive bladder (477330378) Overactive bladder (N32.81) 2022 Active confirmed Problem Enlarged prostate (521816428) Enlarged prostate without lower urinary tract symptoms (N40.0) 2022 Active confirmed Problem Body mass index 40+ - severely obese (133903388) Body mass index (BMI) 40.0-44.9, adult (Z68.41) 2022 Active confirmed Problem Abnormal findings diagnostic imaging of liver and biliary tract (399509155) Abnormal findings on diagnostic imaging of liver and biliary tract (R93.2) 2023 Active confirmed gallbladder distention Problem Blood chemistry abnormal (742018468) Abnormal finding of blood chemistry, unspecified (R79.9) 2023 Active confirmed Problem Splenomegaly (66467525) Splenomegaly, not elsewhere classified (R16.1) 2023 Active confirmed send labs and CT Problem Calculus of kidney (35254973) Calculus of kidney (N20.0) 2022 Active confirmed Problem Osteoarthritis (725647391) Unspecified osteoarthritis, unspecified site (M19.90) 2020 Active confirmed Problem Atherosclerotic heart disease of [place] coronary artery without angina pectoris (077978047435704) Atherosclerotic heart disease of [place] coronary artery without angina pectoris (I25.10) 2021 Active confirmed Problem Chronic conjunctivitis (61011169) Unspecified chronic conjunctivitis, left eye (H10.402) 2023 Active confirmed Problem Chronic conjunctivitis (02074705) Unspecified chronic conjunctivitis, right eye (H10.401) 2023 Active confirmed Problem Polyneuropathy (21010329) Polyneuropathy, unspecified (G62.9) 2022 Active confirmed Problem Obstructive sleep apnea syndrome (disorder) (64314594) Obstructive sleep apnea (adult) (pediatric) (G47.33) 2022 Active confirmed Problem Hyperlipidemia (32282299) Hyperlipidemia, unspecified (E78.5) 2023 Active confirmed Problem Morbid obesity (disorder) (717097097) Morbid (severe) obesity due to excess calories (E66.01) 2023 Active confirmed Problem Vitamin D deficiency (91486451) Vitamin D deficiency, unspecified (E55.9) 2021 Active confirmed Problem Diabetic peripheral neuropathy associated with type 2 diabetes mellitus (2758965010851) Type 2 diabetes mellitus with diabetic neuropathy, unspecified (E11.40) 2023 Active confirmed Problem Anemia (134351745) Anemia, unspecified (D64.9) 2021 Active confirmed Problem Lipoma of skin and subcutaneous tissue of trunk (678263423) Benign lipomatous neoplasm of skin and subcutaneous tissue of trunk (D17.1) 2021 Active confirmed Problem Dry eyes (324230557) Dry eyes (H04.123) Active confirmed Problem Lumbar spondylosis (741041481) Lumbar spondylosis (M47.816) Active confirmed Problem Chronic kidney disease stage 3A (disorder) (905060094) Chronic kidney disease, stage 3a (N18.31) Active confirmed Problem Lower urinary tract symptoms due to benign prostatic hypertrophy (08692147066500) Benign prostatic hyperplasia with lower urinary tract symptoms (N40.1) Active confirmed Problem Hypomagnesemia (254705888) Hypomagnesemia (E83.42) Active confirmed Problem Type II diabetes mellitus without complication (549038049) Type 2 diabetes mellitus without complications (E11.9) Active confirmed Problem Abnormal findings on diagnostic imaging of limbs (242009735) Abnormal findings on diagnostic imaging of limbs (R93.6) 2023 Active confirmed Problem Chronic kidney disease (523016827) Chronic kidney disease, unspecified (N18.9) 2023 Active confirmed Problem Hydronephrosis (26021902) Unspecified hydronephrosis (N13.30) 2022 Active confirmed Problem Lesion of ulnar nerve (492679001) Lesion of ulnar nerve, right upper limb (G56.21) 2022 Active confirmed Problem Thrombocytopenia (796622718) Thrombocytopenia, unspecified (D69.6) 2021 Active confirmed Problem Benign neoplastic disease (08305263) Benign neoplasm, unspecified site (D36.9) 2023 Active confirmed Problem Tinea pedis (8514617) Tinea pedis (B35.3) 2020 Active confirmed Problem Essential hypertension (57147589) Essential (primary) hypertension (I10) 2021 Active confirmed Vital Signs Heart Rate 64 /min 04/27/2025 Temperature 98.0 degrees Fahrenheit 04/27/2025 Respiratory Rate 18 /min 02/02/2025 Height-cm 177.8 cm 04/27/2025 Oximetry 96 % 04/27/2025 Blood pressure diastolic 50 mm Hg 04/27/2025 Weight-kg 130.41 kg 04/27/2025 Height 70.00 in 04/27/2025 Blood pressure systolic 108 mm Hg 04/27/2025 Weight 287.5 lbs 04/27/2025 BMI 41.25 kg/m2 04/27/2025 Encounters Encounter Location Date Provider Diagnosis [address] [address] 10/04/2024 Dr. Nora Linares No-show for appointment Z91.[address] [address] 10/04/2024 Nora Michel Acute non-recurrent sinusitis of other sinus J01.80 ; Wheezing R06.2 and Acute cough R05.[address] [address] 10/12/2024 [facility] Annual wellness visi t Z00.00 ; Type 2 diabetes mellitus without complications E11.9 ; Hyperlipidemia, unspecified E78.5 ; Chronic kidney disease, stage 3a N18.31 ; Essential (primary) hypertension I10 ; Enlarged prostate without lower urinary tract symptoms N40.0 ; Anemia, unspecified D64.9 ; Encounter for immunization Z23 ; Wheezing R06.2 and Acute cough R05.[address] [address] 02/02/2025 Dr. Nora Linares Overactive bladder N32.81 ; Benign prostatic hyperplasia with lower urinary tract symptoms N40.1 ; Nocturia R35.1 ; Hypomagnesemia E83.42 ; Type 2 diabetes mellitus with diabetic neuropathy, unspecified E11.40 ; Obstructive sleep apnea (adult) (pediatric) G47.33 ; Encounter for immunization Z23 ; Gastroesophageal reflux disease without esophagitis K21.9 ; Lumbar spondylosis M47.816 ; Cataract of left eye, unspecified cataract type H26.9 and Dry eyes H04.[address] [address] 04/27/2025 Baltazar Donna Pain, joint, knee, right M25.561 ; Encounter for immunization Z23 ; Hyperlipidemia, unspecified E78.5 and Overactive bladder N32.[address] [address] 07/21/2024 Dr. Nora Linares Type 2 diabetes mellitus with diabetic neuropathy, unspecified E11.[address] [address] 07/24/2024 Dr. Nora Linares [address] [address] 02/14/2025 Dr. Nora Linares [address] [address] 03/15/2025 Dr. Nora Linares [address] [address] 04/27/2025 Baltazar Donna Pain, joint, knee, right M25.561 Assessments Encounter Date Diagnosis (ICD Code) Assessment Notes Treatment Notes Treatment Clinical Notes Section Notes 04/27/2025 Pain, joint, knee, right (ICD-10 - M25.561) 02/02/2025 Benign prostatic hyperplasia with lower urinary tract symptoms (ICD-10 - N40.1) 04/27/2025 Encounter for immunization (ICD-10 - Z23) 04/27/2025 Pain, joint, knee, right (ICD-10 - M25.561) - Concern for possible tibial plateau fracture or other fracture due to direct trauma.- Ordered right knee X-ray to evaluate for fracture or bone injury.- If X-ray is negative and symptoms persist, will consider MRI to further assess for ligamentous or meniscal injury.- Advised continued use of ibuprofen and Tylenol for pain control.- Recommended icing the knee at least twice daily to reduce inflammation.- Advised to avoid kneeling or strenuous exercise on the affected knee.- Will review X-ray results and adjust management based on findings. 10/12/2024 Type 2 diabetes mellitus without complications (ICD-10 - E11.9) Last A1c 8.0 (01/2024). Continue insulin, DM check scheduled 02/05 with A1c. 10/04/2024 Acute non-recurrent sinusitis of other sinus (ICD-10 - J01.80) - Will start oral antibiotic to treat for possible bacterial sinus infection - Rest & hydration - Saline nasal sprays or rinses (like a Neti pot) - Can use Flonase nasal spray daily for nasal congestion - Warm compresses for facial pain - Cvnr-fxj-vpffdey meds such as: Acetaminophen/Ibupr ofen for pain/fever, Decongestants (short-term use only), Antihistamines if allergies are a trigger - F/U as recommended 10/12/2024 Annual wellness visit (ICD-10 - Z00.00) AWV Instructions The patient's health risk assessment was reviewed during this visit. The patient's chart was reviewed and updated See scanned images from paperwork reviewed and completed today The following topics have been addressed/discussed at today's visit: All recommended screening services (as applicable) including infectious diseases, osteoporosis, diabetes and/or diabetes complications, glaucoma, cognitive impairment, hearing impairment, alcohol misuse, cancer screening Fall risk assessment Alcohol misuse Counseling (if applicable) Tobacco Cessation Counseling (if applicable) Immunizations Vital Signs End of Life Care Patient was provided with a written copy of the care plan from today's visit. 02/02/2025 Overactive bladder (ICD-10 - N32.81) 43 mins spent face to face today Overactive bladder with adverse effects from oxybutynin: - Oxybutynin causing significant xerostomia, ocular dryness, tongue irritation, and constipation. Patient reports severe dry mouth, dry eyes, and tongue sensitivity. - Discontinued oxybutynin due to intolerable side effects. Patient has history of adverse reactions to solifenacin (rash) and Myrbetriq (rash on penis). - Prescribed Gemtesa 75 mg as alternative therapy for overactive bladder. Patient counseled on potential side effects, including risk of rash and insurance coverage. Will monitor for efficacy and adverse reactions, and patient instructed to report any new symptoms. - If Gemtesa is not tolerated, will consider other options or referral to urology for further management. 07/21/2024 Type 2 diabetes mellitus with diabetic neuropathy, unspecified (ICD-10 - E11.40) 10/04/2024 No-show for appointment (ICD-10 - Z91.199) 10/04/2024 Wheezing (ICD-10 - R06.2) - Prescribe albuterol inhaler for use as needed every 4-6 hours for coughing spells, dyspnea and wheezing. 10/04/2024 Acute cough (ICD-10 - R05.1) - Prescribe tessalon perles for cough as needed every 6-8 hours. - Advised to use Flonase nasal spray for nasal congestion, which can also help dry up post nasal drainge that could be causing the cough as well. 02/02/2025 Nocturia (ICD-10 - R35.1) 10/12/2024 Hyperlipidemia, unspecified (ICD-10 - E78.5) Not taking rosuvastatin due to myalgias, recheck lipids. 04/27/2025 Hyperlipidemia, unspecified (ICD-10 - E78.5) - Elevated triglycerides and cholesterol noted on recent labs. Statin therapy indicated for cardiovascular risk reduction in diabetes. Did not tolerate rosuvastatin.- Initiate trial of alternative statin at low dose. Advised to monitor for muscle aches and discontinue if intolerable side effects occur.- Scheduled follow-up in 3 weeks to assess statin tolerance and efficacy.- If statin not tolerated, will consider ezetimibe as alternative.- Pravastatin 10mg, take at bedtime. 04/27/2025 Overactive bladder (ICD-10 - N32.81) - Overactive bladder symptoms persist. Gemtesa approved by insurance per provider records, but patient reports coverage issues on an alternative letter.- Advised to check with pharmacy regarding Gemtesa coverage and contact office if unable to obtain medication. Will resend order if needed.- Alternatives to be considered if not covered. Has not tolerated myrbetriq, oxybutinin, solifenacin. 10/12/2024 Chronic kidney disease, stage 3a (ICD-10 - N18.31) GFR 01/2024 was 57, continue meds, recheck CMP 02/02/2025 Hypomagnesemia (ICD-10 - E83.42) Low magnesium secondary to acid suppression therapy: - Hypomagnesemia attributed to chronic pantoprazole use. Patient currently taking magnesium oxide supplementation. - Plan to reduce pantoprazole dose to 20 mg daily to minimize risk of further magnesium depletion. Will recheck magnesium levels with laboratory testing. - Monitor for symptoms of hypomagnesemia, including muscle cramps, weakness, and arrhythmias. 02/02/2025 Type 2 diabetes mellitus with diabetic neuropathy, unspecified (ICD-10 - E11.40) Diabetes mellitus with suboptimal glycemic control: - Fasting glucose remains elevated (175-200 mg/dL). Glycemic control is suboptimal, and patient reports worsening control since iron and magnesium issues. - Continue insulin degludec (Tresiba) 76 units daily. Ordered laboratory tests including A1c, PSA, and magnesium. - Will coordinate care with endocrinology (Dr. Loja) for further management and possible medication adjustment. Patient expressed interest in seeing jewel blocker and sawyer due to family history and prior provider changes. - Discussed possible options for diabetes management, including consideration of Mounjaro if tolerated, as patient had nausea with Ozempic. Will adjust therapy based on lab results and specialist input. - Monitor for symptoms of hyperglycemia and hypoglycemia, and educate patient on importance of glycemic control for vision and neuropathy. 10/12/2024 Essential (primary) hypertension (ICD-10 - I10) BP controlled, continue lisinopril, BP 120/62 today. 10/12/2024 Enlarged prostate without lower urinary tract symptoms (ICD-10 - N40.0) checking PSA, controlled with tamsulosin and oxybutinin 02/02/2025 Obstructive sleep apnea (adult) (pediatric) (ICD-10 - G47.33) f/u with sleep MD 02/02/2025 Encounter for immunization (ICD-10 - Z23) Need for second shingles vaccine: - Due for second dose of shingles vaccine. Administered second shingles vaccine during visit. Obtained patient consent. - Patient educated on risks and side effects of vaccination. Will monitor for adverse reactions. Need for pneumonia vaccine: - Eligible for pneumonia vaccine. Will administer pneumonia vaccine at future visit, as discussed with patient. - Patient advised on importance of vaccination for prevention of pneumonia. Need for flu vaccine: - Not yet due for annual influenza vaccine. Will administer flu vaccine at follow-up visit in March or April 2025. - Patient advised on timing and importance of annual flu vaccination. 10/12/2024 Anemia, unspecified (ICD-10 - D64.9) Rechecking CBC and iron levels, f/u 02/0510/12/2024 Encounter for immunization (ICD-10 - Z23) Patient due for pneumo 23, shingles, and RSV, declines any vaccinations today due to not feeling well 02/02/2025 Gastroesophageal reflux disease without esophagitis (ICD-10 - K21.9) Gastritis and duodenitis with prior gastrointestinal bleeding: - Gastritis and duodenitis confirmed by prior endoscopy and biopsy, with microscopic inflammation attributed to acid reflux. Gastrointestinal bleeding was exacerbated by Plavix, not caused by it. - Continue acid suppression therapy with pantoprazole. Discontinued sucralfate as it was not intended for long-term use and prescription has run out. - Plan to reduce pantoprazole dose from 40 mg to 20 mg daily to minimize side effects and risk of hypomagnesemia, as discussed with patient. Patient instructed to keep remaining 40 mg tablets for possible future use in case of flare-up. - Monitor for recurrence of gastrointestinal symptoms, including acid reflux, bleeding, or abdominal pain. If symptoms recur, consider increasing pantoprazole dose temporarily. - Will recheck magnesium levels and other labs to monitor for side effects of acid suppression therapy. Hiatal hernia and acid reflux: - Hiatal hernia present, contributing to acid reflux and risk of complications including esophageal cancer if acid is not controlled. - Prescribed pantoprazole 20 mg daily, with plan to taper dose over time as symptoms allow. Patient advised that acid suppression is important to reduce risk of complications. - Monitor for reflux symptoms, including heartburn, regurgitation, and dysphagia. If symptoms worsen, consider increasing dose or further evaluation. - Patient educated on lifestyle modifications to reduce reflux, including avoiding overeating and elevating head of bed. 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 Diabetic neuropathy also present.- Patient reports left leg swelling at night, numbness and tingling from ankle down, and intermittent numbness in toes. Sensory exam shows diminished sensation.- Will consider lumbar spine MRI if symptoms worsen, new neurological deficits develop, or if neuropathy progresses. Patient educated on signs and symptoms to report, including weakness, numbness, or changes in gait.- Monitor for progression of neuropathy and edema. If MRI reveals significant pathology, will consider targeted therapy or referral to neurology or pain management. 10/12/2024 Wheezing (ICD-10 - R06.2) Still wheezing, sending prednisone, continue albuterol take pantoprazole BID, doxycycline may be causing GERD Refill pantoprazole 10/12/2024 Acute cough (ICD-10 - R05.1) 02/02/2025 Cataract of left eye, unspecified cataract type (ICD-10 - H26.9) Cataract in left eye with blurred vision: - Left eye cataract confirmed, with associated blurred vision. Pigmented lesion in left eye deemed benign by ophthalmology and unchanged over 6 months. - Scheduled consultation for cataract surgery on March 01, 2025. Patient advised to proceed with surgery as recommended by ophthalmology. - Monitor visual symptoms, including changes in acuity, night vision, and driving ability. Patient educated on importance of glycemic control for vision. 02/02/2025 Dry eyes (ICD-10 - H04.123) Cataract in left eye with blurred vision: - Left eye cataract confirmed, with associated blurred vision. Pigmented lesion in left eye deemed benign by ophthalmology and unchanged over 6 months. - Scheduled consultation for cataract surgery on March 01, 2025. Patient advised to proceed with surgery as recommended by ophthalmology. - Monitor visual symptoms, including changes in acuity, night vision, and driving ability. Patient educated on importance of glycemic control for vision. 02/02/2025 Other reduce pantoprazole to 20mg daily - [facility] recheck labs Dr. Loja referral. Stop oxybutyinin Other plans and follow-up: - Ordered laboratory tests including A1c, PSA, magnesium, and other routine labs. Will review results and adjust management as needed. - Coordinating care with endocrinology, ophthalmology, and urology as appropriate. - Patient instructed to follow up in a couple of months for ongoing management, including review of labs, medication efficacy, and vaccination needs. - Will monitor for side effects of new medications and adjust therapy as needed. Plan Of Treatment Pending Test Test Name Order Date MRI : Knee, right 04/27/2025 Hemoglobin A1c {Glycosylated} 10/12/2024 Hemoglobin A1c {Glycosylated} 02/02/2025 PSA, Diagnostic 10/12/2024 PSA, Diagnostic 02/02/2025 Iron Panel 10/12/2024 CBC w Auto Diff 10/12/2024 CBC w Auto Diff 02/02/2025 Comprehensive Metabolic Panel 10/12/2024 Comprehensive Metabolic Panel 02/02/2025 Lipid Panel {Chol, Trig, HDL, LDL} 10/12 Lipid Panel {Chol, Trig, HDL, LDL} 02/02 Magnesium 02/02/2025 Protein/Creatinine Ratio, Urine 02/03/20 25 Vitamin B12 Folate 02/02/2025 Free T4 And TSH 02/02/2025 Next Appt Details Provider Name:Dr. Nora urban, 08/06/2025 10:00:00 AM, [place], [address], [phone] Provider Name:Dr. Nora urban, 10/15/2025 02:00:00 PM, [facility], [place], [address], [phone] Insurance Providers Payer Name Payer Address Payer Phone Subscriber Number Group Number Insured Name Patient Relationship to Insured Coverage Start Date Coverage End Date NGS Medicare RHC [address] [place] [phone] [id number] Clara alex Josue Self - patient is the insured 3 [place] [facility] [place] [address] [id number] Clara alex Josue Self - patient is the insured 3 NGS Medicare B [address] [place] [address] [id number] Josue Morales Self - patient is the insured 3 Medical (General) History Medical History History ICD Code Type 2 diabetes mellitus with diabetic n europathy, unspecified E11.40 Anemia, unspecified D64.9 Thrombocytopenia, unspecified D69.6 Vitamin D deficiency, unspecified E55.9 Morbid (severe) obesity due to excess ca lories E66.01 Hyperlipidemia, unspecified E78.5 Obstructive sleep apnea (adult) (pediatr ic) G47.33 Polyneuropathy, unspecified G62.9 Essential (primary) hypertension I10 Chronic kidney disease, unspecified N18. 9 Surgical History Surgery Date(Month/Year) colonoscopy ,notes : 2009 myringoplasty ,notes : Left Hernia repair ,notes : R ventral hernia with mesh 08/2000 cholecystectomy ,notes : Dr Hutton - rambo WNL 04/12/2024 Cystoscopy ,notes : Dr. Denney pe - Cystoscopy with left retrograde pyelogram and left ureter stent placement. 04/24/23 cataract removal right 2023
--- OUTSIDE RECORDS SUMMARY | 2025-05-20 12:47 | XMS_ITS | Clinical Summary ---
Author Organization [facility] Address [facility] [place] [address] Care Team Providers Care Manager Study Name Role Phone Nora Linares MD Primary Care Provider Allergies Active Allergy Reactions Criticality Noted Date Comments Mirabegron Rash Low 10/07/2015 Semaglutide Nausea Only Low 06/13/2024 Solifenacin Swelling 02/19/2015 Medications CLOPIDOGREL 75 mg tabletIndication s:CAD (coronary artery disease) TAKE 1 TABLET EVERY DAY 90 tablet 3 9 Active OXYBUTYNIN 5 MG tabletIndication s:BPH (benign prostatic hyperplasia) TAKE 1 TABLET EVERY DAY 90 tablet 3 9 Active GABAPENTIN 300 MG capsuleIndicatio ns:Idiopathic progressive neuropathy TAKE 1 CAPSULE TWICE DAILY 180 capsule 0 Active montelukast (SINGULAIR) 10 MG tablet 2 Active multi vitamin/minerals (THERA-M ENHANCED) tablet Take 1 tablet by mouth daily. Active tamsulosin (FLOMAX) 0.4 MG CapIndications:B enign prostatic hyperplasia, unspecified whether lower urinary tract symptoms present TAKE 1 CAPSULE BY MOUTH TWICE A DAY 180 capsule 3 3 Active Fluticasone Propionate (XHANCE) 93 MCG/ACT Exhaler Suspension 1 spray by Nasal route as needed (congestion). 4 Active pantoprazole EC (PROTONIX) 40 MG tablet Take 1 tablet (40 mg total) by mouth daily. 4 Active TRESIBA FLEXTOUCH 200 UNIT/ML injection (PEN) Inject 75 Units into the skin nightly at bedtime. 4 Active lisinopril (PRINIVIL) 2.5 MG tablet Take 1 tablet (2.5 mg total) by mouth daily. 4 Active primidone (MYSOLINE) 50 MG tablet Take 0.5 tablets (25 mg total) by mouth nightly at bedtime. 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 Osteoarthritis (arthritis due to wear and tear o f joints) 11/30/2018 Ischemic vascular disease 04/19/2017 Overview (11/29/2018): Date Onset: 04/19/2017 Ventral hernia 10/07/2015 Overview (11/29/2018): Date Onset: 10/07/2015 Benign lipomatous neoplasm 07/19/2014 Overview (11/29/2018): Date Onset: 07/19/2014 Low back pain 07/19/2014 Overview (11/29/2018): Date Onset: 07/19/2014 Sciatica 07/19/2014 Overview (11/29/2018): Date Onset: 07/19/2014 Umbilical hernia 07/19/2014 Overview (11/29/2018): Date Onset: 07/19/2014 Depression 01/02/2014 Overview (11/29/2018): Date Onset: 01/02/2014 Peripheral neuropathy 01/02/2014 Overview (11/29/2018): Date Onset: 01/02/2014 OAB (overactive bladder) 01/02/2014 Overview (11/29/2018): Date Onset: 01/02/2014 Restless leg syndrome 01/02/2014 Overview (11/29/2018): Date Onset: 01/02/2014 Benign prostatic hyperplasia 08/08/2012 Overview (11/29/2018): Date Onset: 08/08/2012 Obesity 08/08/2012 Overview (11/29/2018): Date Onset: 06/16/2012 Other testicular hypofunction 08/08/2012 Overview (11/29/2018): Date Onset: 06/16/2012 Sleep apnea, obstructive 08/08/2012 Overview (11/29/2018): Date Onset: 06/16/2012 Atherosclerosis of coronary artery 06/16/2012 Overview (11/29/2018): Date Onset: 06/16/2012 Hyperlipidemia 06/16/2012 Overview (11/29/2018): Date Onset: 07/03/2011 Erectile dysfunction 05/30/2012 Overview (11/29/2018): Date Onset: 05/30/2012 Hip pain 05/30/2012 Overview (11/29/2018): Date Onset: 05/30/2012 Nontraumatic hematoma of soft tissue 02/27/2012 Overview (11/29/2018): Date Onset: 02/27/2012 Diabetes mellitus, type II 07/03/2011 Overview (11/29/2018): Date Onset: 07/03/2011 Encounters Date Type Department Care Team Description 04/27/2025 12:05 PM METROLOGY TECHNICIAN - 04/27/2025 11:59 PM METROLOGY TECHNICIAN Hospital Encounter [facility] Diagnostic Imaging [address] [place] [address] [place] [address] Francisco J Contreras PA Discharge Disposition: Home or Self Care (Routine Discharge) 04/27/2025 Travel 03/19/2025 8:31 AM CDT Anesthesia Event [facility] Surgical Services [address] [facility] [place] [address] Michell Altamirano CRNA 03/19/2025 8:28 AM CDT - 03/19/2025 8:57 AM CDT Surgery [facility] [address] [facility] [facility] [address] [place] [address] Meri Menendez MD CATARACT REMOVAL WITH IOL IMPLANT 03/19/2025 7:26 AM CDT - 03/19/2025 9:00 AM CDT Hospital Encounter [facility] [address] [facility] [facility] [facility] [place] [address] Meri Menendez MD Discharge Disposition: Home or Self Care (Routine Discharge) 03/19/2025 Travel 02/26/2025 12:32 PM CDT - 02/26/2025 11:59 PM CDT Hospital Encounter [facility] Laboratory [address] [facility] [facility] [place] [address] Polina Diaz MD Discharge Disposition: Home or Self Care (Routine Discharge) 02/26/2025 Orders Only [facility] [address] [facility] [place] [address] Polina Diaz MD 02/26/2025 Travel 02/19/2025 8:08 PM CDT - 02/19/2025 11:59 PM CDT Hospital Encounter [facility] [address] [place] [address] Jimbo Brooks MD Obstructive Sleep Apnea Discharge Disposition: Home or Self Care (Routine Discharge) 02/19/2025 Travel 02/19/2025 Transcribe Orders [facility] [address] [place] [address] Jimbo Brooks MD from Last 3 Months Immunizations Immunization Administration Dates Next Due Fluzone High Dose - >Age 65 (Prefilled Syringe) 05/09/2019 Influenza (Generic) 04/19/2017,05/10/2012 Varicella Vaccine 08/22/2013 Zoster (Zostavax) 54955 Unt/0.65Ml 08/22/2013 Family History Medical History Relation Comments Cardiovascular Disease Brother Myocardial Infarction Acute Brother Stroke Father Cardiovascular Disease Sister Diabetes Sister Myocardial Infarction Acute Sister Relation Status Comments Brother Father Sister Social History Tobacco Use Types Packs/Day Years Used Date Smoking Tobacco: Never Passive Smoke Exposure: Never Smokeless Tobacco: Former Chew Tobacco Cessation:Counseling Given: No Alcohol Use Standard Drinks/Week Comments Yes 0 (1 standard drink = 0.6 oz pur e alcohol) occasional PHQ-2 Answer Date Recorded Patient Health Questionnaire-2 Score 0 09/16/2022 Sex and Gender Information Value Date Recorded Sex Assigned at Male 07/05/2024 1:28 PM METROLOGY TECHNICIAN Legal Sex Male 9:39 PM CDT Gender Identity Not on file Sexual Orientation Not on file Occupation Industry Job Start Date Job End Date retired Not on file Not on file Not on file Last Filed Vital Signs Vital Sign Reading Time Taken Comments Blood Pressure 120/56 03/19/2025 8:58 AM CDT Pulse 56 03/19/2025 8:58 AM CDT Temperature 36.2 C (97.2 F) 03/19/2025 7:40 AM CDT Respiratory Rate 16 03/19/2025 7:40 AM CDT Oxygen Saturation 96% 03/19/2025 8:58 AM CDT Inhaled Oxygen Concentration - - Weight 129.3 kg (285 lb) 03/19/2025 7:40 AM CDT Height 177.8 cm (5' 10) 03/19/2025 7:40 AM CDT Body Mass Index 40.89 03/19/2025 7:40 AM CDT Plan of Treatment Health Maintenance Due Date Last Done Comments ASCVD Statin 1950 Kidney Health Evaluation 1950 Diabetes: Retinopathy Eye Exam 1968 Annual Medicare Wellness Visit 2015 ASCVD LDL 09/07/2018 09/07/2017, 10/10/2015 Lipid Panel 09/07/2018 09/07/2017, 10/10/2015 Hemoglobin A1C 11/07/2019 05/09/2019, 08/12, 05/11/2017, Additional history exists Pneumococcal Vaccine: 50+ Years (2 of 2 - PPSV23, PCV20, or PCV21) 10/11/2020 08/16/2020 PHQ-2 (Physician [place] [facility] [place]) 06/14/2024 COVID-19 Vaccine ( season) 2025 04/16/2021, 08/10/2020, 07/13/2020 Influenza Adult (#1) 2025 04/13/2022, 04/03/2021, 04/24/2020, Additional history exists RSV Immunization or 60+ Years (1 - 1-dose 75+ series) 2025 Zoster Vaccines (3 of 3) 03/30/2025 025, 03/03/2023, 08/22/2013 DTaP, Tdap and Td Vaccines (3 - Td or Tdap) 11/19/2029 11/20/2019, 06/29/2015 Colorectal Cancer Screening Colonoscopy (10 Years) 10/01/2030 10/01/2020 Hepatitis C Completed 03/06/2024 Hepatitis A Vaccines Aged Out No long er eligible based on patient's age to complete this topic Meningococcal B Vaccine Aged Out No l onger eligible based on patient's age to complete this topic Meningococcal Vaccine Aged Out No tucker jessica eligible based on patient's age to complete this topic RSV Immunizations Under 20 Months Aged Out No longer eligible based on patient's age to complete this topic Medical Devices Implanted Type Area Ticket Sorter Device Identifier Shelf Expiration Date Model / Serial / Lot Iol [employer]ecnis Simplicity Dcb00 - [id number] Implanted:Qty: 1 on 06/22/2024 by Meri Menendez MD at [facility] Lens Right: Eye [employer] 10/17/2026 DCB00 / [id number] / Tecnis 1-Piece Iol With [employer]ecnis Simplicity Delivery System Implanted:Qty: 1 on 03/19/2025 by Meri Menendez MD at [facility] Left: Eye 11/14/2027 [id number] / [id number] / Procedures Procedure Name Priority Date/Time Associated Diagnosis Comments XR KNEE RT 3V Routine 04/27/2025 12:28 PM METROLOGY TECHNICIAN Right knee pain REMV CATARACT EXTRACAP,INSERT LENS 03/19/2025 8:26 AM CDT H25.9 POCT GLUCOSE - DOCKED DEVICE Routine 03/19/2025 8:03 AM CDT POLYSOMNOGRAPHY 4 OR MORE PARAMETERS Routine 02/19/2025 8:15 PM CDT JOHN (obstructive sleep apnea) HEPATITIS C ANTIBODY Routine 03/06/2024 9:55 AM CDT Anemia, unspecified Thrombocytopenia, unspecified Leukocytopenia COLONOSCOPY GENERIC (SCAN ORDER) 10/01/2020 HEMOGLOBIN, GLYCOSYLATED Routine 05/09/2019 8:48 AM METROLOGY TECHNICIAN Diabetes 1.5, managed as type 2 LIPID PANEL Routine 09/07/2017 8:15 AM CDT from Last 3 Months or Most Recently Relevant to Health Maintenance Results * XR KNEE RT 3V (04/27/2025 12:28 PM METROLOGY TECHNICIAN) Anatomical Region Laterality Modality Knee Computed Tomogra phy 04/27/2025 12:2 7 PM METROLOGY TECHNICIAN Impressions 04/27/2025 12:27 PM METROLOGY TECHNICIAN IMPRESSION: No acute findings Ordered By: FRANCISCO J CONTRERAS Interpreted By: Chidi Montenegro MD, 04/27/2025 12:27 PM Narrative 04/27/2025 12:27 PM METROLOGY TECHNICIAN [address] [place] [address] 3 VIEWS OF THE RIGHT KNEE Clinical History: Pain Comparison: None 3 views of the right knee demonstrate the bony elements to be intact. There is no evidence of fracture or dislocation. The surrounding soft tissues appear normal. Procedure Note Chidi Montenegro MD - 04/27/[address] [place] [address] 3 VIEWS OF THE RIGHT KNEE Clinical History: Pain Comparison: None 3 views of the right knee demonstrate the bony elements to be intact.There is no evidence of fracture or dislocation. The surrounding softtissues appear normal. IMPRESSION: No acute findings Ordered By: FRANCISCO J CONTRERAS Interpreted By: Chidi Montenegro MD, 04/27/2025 12:27 PM Francisco J Contreras PA GENERAL IMAGING Final Resu lt * (ABNORMAL) POCT glucose (03/19/2025 8:03 AM CDT) GLUCOSE POC 183(H) 70 - 99 MG/DL 03/19/2025 8:05 AM CDT [facility] 03/19/2025 8:03 AM CDT Meri Menendez MD POCT ORDERABLES - DEVICE Final Result Performing Organization Address City/State/[facility] Co de Phone Number [facility] [address] [place] [address], [place] * Diagnostic PSG (63206, 39146) (02/19/2025 8:15 PM CDT) Narrative [facility] - 02/19/2025 8:15 PM CDT Bill Moreira MD 03/02/2025 1:02 PM [place], [place] SPLIT NIGHT POLYSOMNOGRAM INTERPRETATION PATIENT NAME: JOSUE CRAWFORD DATE OF : 1950 DATE OF SERVICE: 02/19/2025 PATIENT TYPE: CLI Ordering Phy Exam Description iJmbo Brooks M.D. PSG 4+PARAMETERS W/CPAP ATTENDING PHYSICIAN: Bill Moreira MD REFERRING PHYSICIAN: Jimbo Brooks MD GENERAL INFORMATION Total Sleep Time: 251.5 minutes Sleep Efficiency Index: 57.3% Sleep Latency: 27.8 minutes REM Latency: 274.5 minutes Apnea-Hypopnea Index: 79.5 per hour Post Apnea-Hypopnea Index: 3.6 per hour on CPAP of 17.0 cm h2O Procedure: The overnight polysomnogram was an attended study using a multiple channel system including simultaneous monitoring and recording of electroencephalography (EEG), right and left electrooculography (EOC), submental electromyography (EOG), submental electromyography (EMG), EKG, oral/nasal airflow, snoring, respiratory effort, oxygen saturations, right and left anterior tibialis electromyography, and body position. Sleep Architecture: During the diagnostic phase of the study, the patient slept for of 121.5 minutes during 188.3 minutes of recording time. Latency to sleep onset was 27.8 minutes with sleep efficiency of 64.5% and a REM latency of - minutes. Patient spent 17.3% (21.0 minutes) in stage N1, 82.7% (100.5 minutes) in stage N2, 0.0% (0.0 minutes) in Stage N3, 0.0% (0.0 minutes) in REM. The patient slept 0.0% of the time in supine position, 0.0% of the time in prone position, 0.0% of the time in left-sided position, and 0.0% of the time in right-sided position. There were 85 arousals, of which 69 were associated with respiratory events and 16 were spontaneous. Arousal index was 42.0 per hour. During the treatment phase of the study, the patient slept for of 130.0 minutes during 250.4 minutes of recording time. Latency to sleep onset was 53.5 minutes with sleep efficiency of 51.9%. Slow-wave sleep represented 31.2% of sleep time. REM sleep represented 24.6% of sleep time, with a REM latency of 60.5 minutes. Patient spent 4.6% (6.0 minutes) in stage N1, 39.6% (51.5 minutes) in stage N2, 31.2% (40.5 minutes) in Stage N3, 24.6% (32.0 minutes) in REM. The patient slept 0.0% of the time in supine position, 0.0% of the time in prone position, 0.0% of the time in left-sided position, and 0.0% of the time in right-sided position. There were 12 arousals, of which 8 were associated with respiratory events and 4 were spontaneous. Arousal index was 5.5 per hour. Limb Activity Summary: During the diagnostic phase of the study, the patient demonstrated a total of - leg movements during the night, of which - had the appearance of periodic limb movements. There were a total of - arousals associated with leg movements for an arousal index with leg movements of - per hour. The periodic limb movement index was - per hour. During the treatment phase of the study, the patient demonstrated a total of - leg movements during the night, of which - had the appearance of periodic limb movements. There were a total of - arousals associated with leg movements for an arousal index with leg movements of - per hour. The periodic limb movement index was - per hour. Cardiac Events Summary: The average heart rate was 53.7 beats per minute. Bradycardia was noted during this study. Respiratory Events Summary: During the diagnostic phase of the study, there were a total of 166 apneas and hypopneas, of which 2 were apneas. Of those apneas, 2 were Obstructive, - were Central and - were Mixed. There were an additional 1 respiratory event-related arousals. The overall AHI was 79.5 per hour and the overall RDI was 82.5 per hour. During non-supine sleep, the overall AHI was - per hour. During supine sleep, the overall AHI was80.5 per hour. NREM AHI was 80.5 per hour and REM AHI was - per hour. During the treatment phase of the study, there were a total of 18 apneas and hypopneas, of which - were apneas. Of those apneas, - were Obstructive, - were Central and - were Mixed. There were an additional 1 respiratory event-related arousals. The overall AHI was 8.3 per hour and the overall RDI was 8.8 per hour. During non-supine sleep, the overall AHI was - per hour. During supine sleep, the overall AHI was 8.3 per hour. NREM AHI was 5.5 per hour and REM AHI was 16.9 per hour. Oxygen Saturation Summary: During the diagnostic phase of the test, the patient's average saturation was - during REM and 91.1% during NREM. The patient's lowest saturation was - during REM and 77.0% during NREM. Saturation was less than or equal to 88% for 26.5 minutes. During the treatment phase of the test, the patient's average saturation was 91.6% during REM and 92.0% during NREM. The patient's lowest saturation was 81.0% during REM and 82.0% during NREM. Saturation was less than or equal to 88% for 4.9 minutes. CPAP/BiLevel Therapy Summary: The patient underwent CPAP titration starting at 10 cm H2O, up to a maximum of 17 cm H2O. The patient slept for 50.5 minutes while on the optimal pressure of 17 cm H2O with an AHI of 3.6 per hour, arousal index of 5.9 per hour and minimum oxygen saturation of 87.0%. Assessment/Plan: Severe Obstructive Sleep Apnea. This patient was fully titrated in the allotted time during this study. I recommend initiation of CPAP at home set at 17.0 cm h2O, EPR 3, with heated humidity. A one month follow up should be scheduled with the ordering physician to assess the benefit and tolerance of this therapy. The patient used a [employer] Simplus, size large, during this study. This patient's oxygen saturation was at or below 88.0% for 26.5 minutes during the diagnostic segment and 4.9 minutes during the treatment segment of this study. Possible need to do additional testing with full night titration with possible supplemental oxygen addition if there are still significant desaturations when patient's AHI is within normal limits should be considered. Also, bradycardia was noted during the study. The possibility of additional medical evaluation based on noted desaturations and bradycardia should be considered. This patient should maintain a consistent sleep/wake schedule with adequate hours of sleep and avoid hazardous activities when sleepy. The patient should be cautioned about factors that may potentially exacerbate snoring and other sleep-related issues, such as OTR OWNER OPERATOR depressants, especially at bedtime. This document was electronically signed by: Bill Moreira M.D. on 02/28/2025 at 11:03 AM. Jimbo Brooks MD SLEEP CENTER ORDERABLES Final R esult [facility] [address] [place] [address], * HEPATITIS C ANTIBODY (03/06/2024 9:55 AM CDT) HEPATITIS C AB NON-REACTI VE NON-REACTI VE 03/06/2024 3:17 PM CDT [facility] 03/06/2024 9:55 AM CDT us Polina Diaz MD LABORATORY Final Result [facility] [address] [place] [address], * COLONOSCOPY GENERIC (10/01/2020) 10/01/2020 Narrative 10/01/2020 Ordered by an unspecified provider. Documents Scanned SCANNING Final Result * (ABNORMAL) HEMOGLOBIN, GLYCOSYLATED (05/09/2019 8:48 AM METROLOGY TECHNICIAN) Pathologist [facility] HGB A1C 9.9(H) 4.2 - 6.3 % [facility] Comment: Note: Hemoglobinopathies such as HbF, HbS, etc. may give incorrect results with this test. ESTIMATED AVG GLUCOSE 244 mg/dL [facility] Comment: (This value is a calculated estimate of the mean blood glucose over the last 60 days based on the patient's HgbA1c value. 05/09/2019 8:48 AM METROLOGY TECHNICIAN 05/09/2019 12:14 PM METROLOGY TECHNICIAN Nilson Rosa MD LABORATORY Final Result Performing Organization Address City/[facility] Co de Phone Number [address] [address] * LIPID PANEL (09/07/2017 8:15 AM CDT) CHOLESTEROL 155 0 - 200 mg/dL [facility] TO EPIC CONVERSION TRIGLYCERIDES 142 0 - 150 mg/dL [facility] TO EPIC CONVERSION HDL 36 0 - 40 mg/dL [facility] TO EPIC CONVERSION LDL (CALCULATED) 91 10 - 130 mg/dL [facility] TO EPIC CONVERSION RISK 4 [facility] T O EPIC CONVERSION 09/07/2017 8:15 AM CDT 09/07/2017 8:15 AM CDT Narrative [facility] TO EPIC CONVERSION - 09/07/2017 9:22 AM CDT This lab was migrated from [facility] and may be missing annotations or result text, please check the Media tab for the most complete results. Nilson Rosa MD LABORATORY Final Result [facility] TO EPIC CONVERSION from Last 3 Months or Most Recently Relevant to Health Maintenance Insurance MEDICARE [facility] MEDICARE Advance Directives Documents on File Type Date Recorded Patient Java Developer Consultant Expl anation Advance Directives and Living Will 10/01/2020 12:00 AM ADVANCED DIRECTIVES Care Teams Manager Study Relationship Specialty Start Date End Date Nora Linares MD [address] [place] [address] PCP - General FAMILY PRACTICE 04/23/23
--- OUTSIDE RECORDS SUMMARY | 2025-05-20 12:47 | XMS_ITS | Encounter Summary ---
Author Organization [facility] Address [address] [place] [address] Phone Care Team Providers Care Sports Statistician Name Role Phone Nora Linares MD Primary Care Provider Deni Infante MD Unavailable [phone] Polina Diaz MD Unavailable Encounter Details Date Type Department Care Team (Late st Contact Info) Description 07/13/2024 Telephone [facility] [id number] [address] Polina Diaz MD [address] [place] [address] Social History Tobacco Use Types Packs/Day Years Used Date Smoking Tobacco: Never Smokeless Tobacco: Former Chew Quit: 05/14/2019 Alcohol Use Standard Drinks/Week Comments Yes 0 (1 standard drink = 0.6 oz pur e alcohol) occassionally PHQ-2 Answer Date Recorded Total Score - Questions 1-9 0 02/12 Sexually Active Control Partners Comments Yes Sex and Gender Information Value Date Recorded Sex Assigned at Not on file Legal Sex Male 8:39 AM CDT Gender Identity Not on file Sexual Orientation Not on file documented as of this encounter Miscellaneous Notes * Telephone Encounter - Leigh Ann العراقيsacha Ghotra - 07/13/2024 9:53 AM CST GEORGE is seeing Dr. Castillo 07/20/24 at 1PM. 3D TECHNOLOGIST documented in this encounter Plan of Treatment Upcoming Encounters Date Type Department Care Team (Late st Contact Info) Description 06/25/2025 9:30 AM 3D TECHNOLOGIST Clinical Support [facility] [address] [place] [address] [place] [phone] Nurse, [place] 07/02/2025 9:00 AM 3D TECHNOLOGIST Office Visit [facility] [address] [place] [address] [place] [phone] Polina Diaz MD [address] [place] [phone] documented as of this encounter Visit Diagnoses Not on filedocumented in this encounter Additional Health Concerns Assessment Noted Time PHQ-9 Depression Total Score: 0 01/22/20 8:50 AM CDT documented as of this encounter Care Teams Sports Statistician Relationship Specialty Start Date End Date Nora Linares MD PCP - General Family Medicine 12/25/19 Deni Infante MD [address] [place] [address] [place] [address] Consulting Physician Oncology 12/25/19 08/02/24 Polina Diaz MD [address] [place] [address] [place] [address] Consulting Physician Oncology 08/03/24 documented as of this encounter
--- OUTSIDE RECORDS SUMMARY | 2025-05-20 12:47 | XMS_ITS | Encounter Summary ---
Author Organization [facility] Address [facility] [place] [address] Care Team Providers Care Field Map Editor Name Role Phone Nilson Rosa MD Primary Care Provider [phone] None, Provider Primary Care Provider Nora Murphy MD Primary Care Provider Encounter Details Date Type Department Care Team (Late st Contact Info) Description 04/17/2017 [place] [address] , Generic ConversionMD Social History Tobacco Use Types Packs/Day Years Used Date Smoking Tobacco: Never Assessed Sex and Gender Information Value Date Recorded Sex Assigned at Male 07/05/2024 1:28 PM MAGAZINE HAND Legal Sex Male 9:39 PM CDT Gender Identity Not on file Sexual Orientation Not on file documented as of this encounter Plan of Treatment Not on file documented as of this encounter Visit Diagnoses Not on filedocumented in this encounter Additional Health Concerns Infection Onset Date Last Indicated Resolved Time COVID-19 Rule Out 09/28/2020 09/28/2020 05/05/2021 6:16 PM MAGAZINE HAND documented as of this encounter Care Teams Field Map Editor Relationship Specialty Start Date End Date Nilson Rosa MD [address] [place] [address] JOSE Cook [address] PCP - General FAMILY PRACTICE 11/28/18 08/10/19 None, ProviderMD PCP - General 09/10/20 04/22/23 Nora Linares MD [address] [place] [address] PCP - General FAMILY PRACTICE 04/23/23 documented as of this encounter
--- OUTSIDE RECORDS SUMMARY | 2025-05-20 12:47 | XMS_ITS | Clinical Summary ---
Author Organization [facility] Address [address] [place] [address] Care Team Providers Care Smoking Tobacco Packing Machine Hand Name Role Phone Rosibel Jarvis NP Unavailable [phone] Nora Linares MD Primary Care Provider Meri Urias MD Unavailable Allergies Active Allergy Reactions Criticality Noted Date Comments Levofloxacin Rash Medium 01/22/2020 Mirabegron Rash Medium 10/07/2015 Penicillins Rash Medium 10/31/2020 Semaglutide Nausea only Low 03/06/2024 Solifenacin Swelling,Rash Medium 02/19/2015 Hpuiggy-Vgi-Efd Reductase Inhibitors Muscle pain High 02/14/2025 Medications gabapentin (NEURONTIN) 300 mg capsule Take 1 capsule (300 mg total) by mouth 2 (two) times a day 0 Active primidone (MYSOLINE) 50 mg tablet 2 Active lisinopriL (PRINIVIL,ZESTR IL) 2.5 mg tablet 2 Active tamsulosin (FLOMAX) 0.4 mg extended release capsule Take 1 capsule (0.4 mg total) by mouth 2 (two) times a day 3 Active magnesium oxide (MAG-OX) 400 mg (241.3 mg elemental magnesium) tablet Take 1 tablet (400 mg total) by mouth daily 5 Active tadalafiL (CIALIS) 5 mg tablet Take 1 tablet (5 mg total) by mouth daily 3 Active montelukast (SINGULAIR) 10 mg tablet 2 Active fluticasone propionate (Xhance) 93 mcg/actuation aerosol breath activated every 12 hours 4 Active aspirin 81 mg enteric coated tablet Take 1 tablet (81 mg total) by mouth daily Active albuterol HFA (PROVENTIL HFA,VENTOLIN HFA,PROAIR HFA) 90 mcg/actuation inhaler 1-2 puffs Inhalation every 4-6 hours; Duration: 30 days As needed 5 Active albuterol HFA (PROVENTIL HFA,VENTOLIN HFA,PROAIR HFA) 90 mcg/actuation inhaler 1-2 puffs 5 Active pen needle, diabetic 32 gauge x 5/16 needle ; Duration: [address] (PROTONIX) 20 mg EC tablet TAKE 1 TABLET BY MOUTH 1/2-1 HOURS BEFORE MORNING MEAL DAILY 5 Active insulin lispro (HumaLOG) 100 unit/mL pen for injection 15 units before your main 2 meals, ( lunch and dinner ) Take 20 units if sugars are over 200. Take 25 units if sugars are over 300. 15 mL 6 5 Active insulin glargine 100 unit/mL vial for injectionIndica tions:Type 2 diabetes mellitus with hyperglycemia, with long-term current use of insulin (HCC) Inject 80 Units under the skin nightly 75 mL 3 5 04/17/20 26 Active metFORMIN XR (GLUCOPHAGE XR) 500 mg 24 hr tabletIndicatio ns:Type 2 diabetes mellitus with hyperglycemia, with long-term current use of insulin (HCC) TAKE 2 TABLETS BY MOUTH EVERY DAY WITH BREAKFAST 180 tablet 1 5 Active Active Problems Problem Noted Date Diagnosed Date Type 2 diabetes mellitus wit h hyperglycemia, with long-term current use of insulin 04/16/2025 Assessment & Plan (04/17/2025 11:37 AM RADIAL DRILL PRESS SET UP OPERATOR): Chronic problem. A1c near goal & improved from 9.2% 02/14/25 to 7.7%. reviewed dexcom, diet & exercise at time of appt. -If eating a muffin for breakfast--take the insulin. As we looked it up in the appointment: they are 45 grams of carbs. -increase your Tresiba/insulin glargine to 80 units. -take the Humalog with each meal (if eating a muffin for breakfast that is considered a meal due to 45 grams of carbs). -pay attention to your carb intake. Current medications: Metformin XR 1000mg with breakfast Tresiba 80 units at bedtime Humalog 15 units before meals If blood sugar over 200: take 20 units If blood sugar over 300: take 25 units UTD on DM eye: 07/18/24 WUSM. Will update labs. Does not mychart. Verified phone #/address to contact re: results. Discussed with Josue Crawford: Strive for regular exercise (30min most days) and diet (get at least 4-5 servings of fruit and veggies daily, avoid processed foods, increase lean protein intake and decrease carb portions as well as fruit juices, regular soda & desserts). Watch carbs and simple sugars. Check the blood sugar: 3 times daily. Check the feet daily for skin breakdown and infection. Diabetic polyneuropathy asso ciated with type 2 diabetes mellitus 04/16/2025 Assessment & Plan (04/17/2025 10:34 AM RADIAL DRILL PRESS SET UP OPERATOR): Chronic problem. Currently taking Gabapentin 300mg bid. Reviewed foot care; needs to lotion daily. Aware to check feet nightly, not to go barefoot. Dry eyes 02/14/2025 Lower urinary tract symptoms due to benign prostatic hyperplasia 02/14/2025 Lumbar spondylosis 02/14/2025 Stage 3a chronic kidney disease 02/14/2025 Hypomagnesemia 12/01/2024 Leukopenia 11/27/2024 Drusen of macula, right 07/19/2024 Assessment & Plan (07/19/2024 4:27 PM RADIAL DRILL PRESS SET UP OPERATOR): Rare , non central. 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 Most consistent with iris nevus at this time but discussed potential for malignant transformation and recommendation for ongoing follow up given recently documented. Ok to proceed with cataract extraction (CE)/intraocular lens (IOL) Follow up 6 months Iron deficiency anemia 07/10/2024 Chronic kidney disease 02/04/2024 Abnormal findings on diagnos tic imaging of liver and biliary tract 02/04/2024 Abnormal finding of blood chemistry, unspecified 02/04/2024 Splenomegaly 02/04/2024 Abnormal findings on diagnostic imaging of limbs 10/18/2023 Chronic conjunctivitis 09/01/2023 Benign neoplastic disease 09/01/2023 Morbid obesity 09/01/2023 Hydronephrosis 04/23/2023 Calculus of kidney 04/23/2023 Benign prostatic hyperplasia without lower urinary tract symptoms 03/13/2023 Polyneuropathy 03/13/2023 Lesion of ulnar nerve 08/05/2022 Other abnormality of red blood cells 03/24/2022 Lipoma of skin and subcutaneous tissue of trunk 02/02/2022 Thrombocytopenia, unspecified 02/02/2022 Vitamin D deficiency 02/02/2022 Essential hypertension 06/23/2021 Anemia 06/23/2021 Tinea pedis 04/03/2021 MTHFR mutation 01/22/2020 Diabetes 1.5, 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 Osteoarthritis 11/30/2018 Ischemic vascular disease 04/19/2017 Overview (02/14/2025): Date Onset: 04/19/2017 Ventral hernia 10/07/2015 Overview (02/14/2025): Date Onset: 10/07/2015 Benign lipomatous neoplasm 07/19/2014 Overview (02/14/2025): Date Onset: 07/19/2014 Low back pain 07/19/2014 Overview (02/14/2025): Date Onset: 07/19/2014 Sciatica 07/19/2014 Overview (02/14/2025): Date Onset: 07/19/2014 Umbilical hernia 07/19/2014 Overview (02/14/2025): Date Onset: 02/27/2012 Date Onset: 07/19/2014 Depression 01/02/2014 Overview (02/14/2025): Date Onset: 01/02/2014 Overactive bladder 01/02/2014 Overview (02/14/2025): Date Onset: 01/02/2014 Peripheral neuropathy 01/02/2014 Overview (02/14/2025): Date Onset: 04/19/2017 Date Onset: 01/02/2014 Restless leg syndrome 01/02/2014 Overview (02/14/2025): Date Onset: 01/02/2014 Hypogonadism in male 08/08/2012 Overview (02/14/2025): Date Onset: 06/16/2012 Benign prostatic hyperplasia 08/08/2012 Overview (02/14/2025): Date Onset: 08/08/2012 Obesity 08/08/2012 Overview (02/14/2025): Date Onset: 06/16/2012 Date Onset: 06/16/2012 Obstructive sleep apnea syndrome 08/08/2012 Overview (02/14/2025): Date Onset: 06/16/2012 Hyperlipidemia 06/16/2012 Overview (02/14/2025): Date Onset: 07/03/2011 Atherosclerotic heart diseas e of [place] coronary artery without angina pectoris 06/16/2012 Overview (02/14/2025): Date Onset: 06/16/2012 Hip pain 05/30/2012 Overview (02/14/2025): Date Onset: 05/30/2012 Erectile dysfunction 05/30/2012 Overview (02/14/2025): Date Onset: 05/30/2012 Nontraumatic hematoma of soft tissue 02/27/2012 Overview (02/14/2025): Date Onset: 02/27/2012 Resolved Problems Problem Noted Date Diagnosed Date Resolved Date Type 2 diabetes mellitus wit h diabetic neuropathy, unspecified 09/01/2023 04/16/2025 Type 2 diabetes mellitus wit hout complications 07/03/2011 04/16/2025 Overview (02/14/2025): Date Onset: 07/03/2011 Encounters Date Type Department Care Team Description 04/17/2025 11:50 AM RADIAL DRILL PRESS SET UP OPERATOR Lab [address] [address] Type 2 diabetes mellitus with hyperglycemia, with long-term current use of insulin (HCC) 04/17/2025 11:00 AM RADIAL DRILL PRESS SET UP OPERATOR Office Visit [facility] Diabetes and Endocrinology [address] [place] [phone] Sully Robert, DINA Type 2 diabetes mellitus with hyperglycemia, with long-term current use of insulin (HCC) (Primary Dx); Diabetic polyneuropathy associated with type 2 diabetes mellitus (HCC) 04/17/2025 Results Follow-Up [facility] Diabetes and Endocrinology [address] [place] [phone] Sully Robert, BUILDING ADMIN Albumin Creatinine Ratio, Urine, Lipid panel 03/02/2025 Telephone [facility] Ophthalmology [address] [place] [address] Ritika Dooley MD PhD Note Request from Last 3 Months Immunizations Immunization Administration Dates Next Due Influenza, Quad, Adjuvantate d, Intramuscular 04/04/2020 Influenza, Quadrivalent, Hig h Dose, Preservative Free, Intrr 04/13/2022,04/03/2021,04/24/2020,05/09 Influenza, Trivalent, High D ose, Split, Preservative Free, Intramuscular 04/13/2022,04/03/2021,04/24/2020,05/09 Influenza, Unspecified 04/19/2017,05/10/2012 Pneumococcal Conjugate PCV 13 08/16/2020 Tdap 11/20/2019,06/29/2015 Varicella 08/22/2013 ZOSTER LIVE 03/03/2023,08/22/2013 ZOSTER Recombinant 02/02/2025 Surgical History Surgery Date Site/Laterality Comments CATARACT EXTRACTION 06/14/2024 - 07/14/2024 Right GALLBLADDER SURGERY KIDNEY STONE SURGERY Medical History Medical History Date Comments Diabetes mellitus Hypertension Allergies Anemia Arthritis Social History Tobacco Use Types Packs/Day Years Used Date Smoking Tobacco: Never Tobacco Cessation:Counseling Given: Not Answered AUDIT-C Answer Date Recorded Q1: How often do you have a drink containing alc ohol? Monthly or less 07/18/2024 Average Number of Drinks Not on file Frequency of Binge Drinking Not on file 09/2024 Sex and Gender Information Value Date Recorded Sex Assigned at Not on file Legal Sex Male 1:16 AM RADIAL DRILL PRESS SET UP OPERATOR Gender Identity Not on file Sexual Orientation Not on file Last Filed Vital Signs Vital Sign Reading Time Taken Comments Blood Pressure 114/62 04/17/2025 10:37 AM RADIAL DRILL PRESS SET UP OPERATOR Pulse 56 04/17/2025 10:37 AM RADIAL DRILL PRESS SET UP OPERATOR Temperature - - Respiratory Rate 18 04/17/2025 10:3 7 AM RADIAL DRILL PRESS SET UP OPERATOR Oxygen Saturation - - Inhaled Oxygen Concentration - - Weight 130.2 kg (287 lb 1.6 oz) 025 10:37 AM RADIAL DRILL PRESS SET UP OPERATOR Height 177.8 cm (5' 10) 04/17/2025 10: 37 AM RADIAL DRILL PRESS SET UP OPERATOR Body Mass Index 41.19 04/17/2025 10:37 AM RADIAL DRILL PRESS SET UP OPERATOR Plan of Treatment Health Maintenance Due Date Last Done Comments Colon Cancer Screening-Colonoscopy 1950 Depression Screening 1950 Fall Risk Assessment 1950 Hepatitis C Screening 1950 TSH Level 1950 eGFR 1950 Hepatitis B Screening 1968 Well Visit 65+ 2015 Pneumococcal vaccine 65+ (2 of 2 - PPSV23, PCV20, or PCV21) 10/11/2020 08/16/2020 Covid-19 Vaccine (5 - 2024-2 6 season) 2025 08/19/2022, 04/16/2021, 08/10/2020, Additional history exists Influenza Vaccine (#1) 2025 2, 04/13/2022, 04/03/2021, Additional history exists Zoster Vaccine (3 of 3) 03/30/2025 02/03/20 25, 03/03/2023, 08/22/2013 Dilated Eye Exam 07/18/2025 07/18/2024 Hemoglobin A1C 10/15/2025 04/17/2025, 02/14/2025 Albumin Creatinine Ratio, Urine 04/17/2026 Foot Exam 04/17/2026 04/17/2025 Lipid Panel 04/17/2026 04/17/2025, 09/07/2017 DTaP/Tdap/Td Vaccine (3 - Td or Tdap) 11/19/2029 11/20/2019, 06/29/2015 Procedures Procedure Name Priority Date/Time Associated Diagnosis Comments LIPID PANEL Routine 04/17/2025 11:59 AM RADIAL DRILL PRESS SET UP OPERATOR Type 2 diabetes mellitus with hyperglycemia, with long-term current use of insulin (HCC) ALBUMIN CREATININE RATIO, URINE Routine 04/17/2025 11:59 AM RADIAL DRILL PRESS SET UP OPERATOR Type 2 diabetes mellitus with hyperglycemia, with long-term current use of insulin (HCC) POCT HEMOGLOBIN A1C Routine 04/17/2025 1 0:59 AM RADIAL DRILL PRESS SET UP OPERATOR Type 2 diabetes mellitus with hyperglycemia, with long-term current use of insulin (HCC) POCT GLUCOSE Routine 04/17/2025 10:46 AM RADIAL DRILL PRESS SET UP OPERATOR Type 2 diabetes mellitus with hyperglycemia, with long-term current use of insulin (HCC) from Last 3 Months Results * Albumin Creatinine Ratio, Urine (04/17/2025 11:59 AM RADIAL DRILL PRESS SET UP OPERATOR) Albumin Ur <12.0 mg/L Comment: Interpretive Data No reference range established. Current interpretive data was last revised 2018. Creatinine Ur 74.1 mg/dL [facility] Comment: Interpretive Data No reference range established. Current interpretive data was last revised 2018. Albumin Creatinine Ratio, Ur <16 1 - 29 mg/g [facility] Urine 04/17/2025 11:5 9 AM RADIAL DRILL PRESS SET UP OPERATOR 04/17/2025 1:58 PM RADIAL DRILL PRESS SET UP OPERATOR us Sully Robert NP LAB URINE ORDERABLES Shani l Result [facility] [address] [facility] Department [place] [address] * (ABNORMAL) Lipid panel (04/17/2025 11:59 AM RADIAL DRILL PRESS SET UP OPERATOR) Cholesterol 197 30 - 199 mg/dL Comment: Interpretive Data Ages < or = 19 years Acceptable: <170 mg/dL Borderline high: 170-199 mg/dL High: >or= 200 mg/dL Ages > or = 20 years Desirable: <200 mg/dL Borderline high: 200-239 mg/dL High: >or= 240 mg/dL Literature References: 1. Expert Panel on Integrated Guidelines for Cardiovascular Health and Risk Reduction in Children and Adolescents. Pediatrics 2011;128:S213 2. NCEP Expert Panel. Circulation 2004;110:227 Current Interpretive Data was last revised on 2018. Triglycerides 275(H) <=149 mg/dL SAM Comment: Interpretive Data Ages < or = 9 years Acceptable: <75 mg/dL Borderline high: 75-99 mg/dL High: >or= 100 mg/dL Ages 10 to 20 years Acceptable: <90 mg/dL Borderline high: 90-129 mg/dL High: >or= 130 mg/dL Ages > or = 20 years Desirable: <150 mg/dL Borderline high: 150-199 mg/dL High: 200-499 mg/dL Very high: >or= 499 mg/dL Literature References: 1. Expert Panel on Integrated Guidelines for Cardiovascular Health and Risk Reduction in Children and Adolescents. Pediatrics 2011;128:S213 2. NCEP Expert Panel. Circulation 2004;110:227 Current Interpretive Data was last revised on 2018. HDL 34(L) >=40 mg/dL SAM Comment: Interpretive Data Ages < or = 19 years Acceptable: >45 mg/dL Borderline low: 40-45 mg/dL Low: <40 mg/dL Ages > or = 20 years Desirable: >or= 60 mg/dL Low: <40 mg/dL Literature References: 1. Expert Panel on Integrated Guidelines for Cardiovascular Health and Risk Reduction in Children and Adolescents. Pediatrics 2011;128:S213 2. NCEP Expert Panel. Circulation 2004;110:227 Current Interpretive Data was last revised on 2018. LDL, calculated 115 <=129 mg/dL SAM Comment: Interpretive Data Ages < or = 19 years Acceptable: <110 mg/dL Borderline high: 110-129 mg/dL High: >or= 130 mg/dL Ages > or = 20 years Optimal: <100 mg/dL Near optimal: 100-129 mg/dL Borderline high: 130-159 mg/dL High: >160 mg/dL Calculated using the Reilly LDL-C estimating equation. This equation was implemented on 2024. Prior to this date LDL-C was estimated using the Friedewald equation. Literature References: 1. Expert Panel on Integrated Guidelines for Cardiovascular Health and Risk Reduction in Children and Adolescents. Pediatrics 2011;128:S213 2. NCEP Expert Panel. Circulation 2004;110:227 3. Reilly M et al. YOEL Cardiol. 2020 October 12;5(5):540-548. doi: 10.1001/jamacardio.2020.0013 Current Interpretive Data was last revised on 2024. Non-HDL Cholesterol 163 mg/dL [facility] Comment: Interpretive Data Ages < or = 19 years Acceptable: <120 mg/dL Borderline high: 120-144 mg/dL High: >145 mg/dL Ages > or = 20 years When triglycerides are >200 mg/dL, Non-HDL cholesterol is a secondary target of therapy with treatment goals that are 30 mg/dL greater than the LDL cholesterol target. Literature References: 1. Expert Panel on Integrated Guidelines for Cardiovascular Health and Risk Reduction in Children and Adolescents. Pediatrics 2011;128:S213 2. NCEP Expert Panel. Circulation 2004;110:227 Current Interpretive Data was last revised on 2018. Chol/HDL ratio 6 SAM [facility]A Blood 04/17/2025 11:5 9 AM RADIAL DRILL PRESS SET UP OPERATOR 04/17/2025 1:58 PM RADIAL DRILL PRESS SET UP OPERATOR us Sully Robert NP LAB BLOOD ORDERABLES Shani park Result [facility] [address] [facility] Department [place] [address] * (ABNORMAL) POCT hemoglobin A1c (04/17/2025 10:59 AM RADIAL DRILL PRESS SET UP OPERATOR) Hemoglobin A1C, POC 7.7(A) 4.0 - 5.6 % Blood 04/17/2025 10:5 9 AM RADIAL DRILL PRESS SET UP OPERATOR us Sully Robert BUILDING ADMIN POINT OF CARE TEST ORDERA BLES Final Result * POCT glucose (04/17/2025 10:46 AM RADIAL DRILL PRESS SET UP OPERATOR) Glucose Blood, POC 187 Normal Fasting 70 - 100, Random <200 mg/dL Blood 04/17/2025 10:4 6 AM RADIAL DRILL PRESS SET UP OPERATOR us Sully Robert BUILDING ADMIN POINT OF CARE TEST ORDERA BLES Final Result from Last 3 Months Insurance MEDICARE [facility] [place] [address] MEDICARE [place] [address] Care Teams Smoking Tobacco Packing Machine Hand Relationship Specialty Start Date End Date Nora Linares MD [address] [place] [address] PCP - General Family Medicine 02/07/25 Rosibel Jarvis NP [address] [place] [address] Family Medicine 02/07/25 Meri Urias MD [address] [place] [address] Referring Physician Ophthalmology 06/20/24
--- OUTSIDE RECORDS SUMMARY | 2025-05-20 12:47 | XMS_ITS | Encounter Summary ---
Author Organization [facility] Address [address] [place] [address] Phone Care Team Providers Care Order Entry Clerk Name Role Phone Nora Linares MD Primary Care Provider Deni Infante MD Unavailable Polina Diaz MD Unavailable Reason for Visit * Reason Comments Medication Refill Encounter Details Date Type Department Care Team (Late st Contact Info) Description 09/09/2022 Refill [facility] [address] [place] [phone] Yamilet Ann, PROFESSOR OF ASTRONOMY, WATER QUALITY TECHNICIAN [address] [facility] [address] [place] [phone] Medication Refill Social History Tobacco Use Types Packs/Day Years Used Date Smoking Tobacco: Never Smokeless Tobacco: Former Chew Quit: 05/14/2019 Alcohol Use Standard Drinks/Week Comments Yes 0 (1 standard drink = 0.6 oz pur e alcohol) occassionally PHQ-2 Answer Date Recorded Total Score - Questions 1-9 0 02/12 Sexually Active Control Partners Comments Not Currently Sex and Gender Information Value Date Recorded Sex Assigned at Not on file Legal Sex Male 8:39 AM CDT Gender Identity Not on file Sexual Orientation Not on file documented as of this encounter Miscellaneous Notes * Telephone Encounter - Michael Andrade RN - 09/09/2022 8:56 AM CDT Please refill if appropriate. documented in this encounter Plan of Treatment Upcoming Encounters Date Type Department Care Team (Late st Contact Info) Description 06/25/2025 9:30 AM REGULATORY SUBMISSIONS SPECIALIST Clinical Support [facility] [address] [place] [address] [place] [phone] Nurse, [facility] 07/02/2025 9:00 AM REGULATORY SUBMISSIONS SPECIALIST Office Visit [facility] [address] [place] [address] [place] [phone] Polina Diaz MD [address] [place] [phone] documented as of this encounter Visit Diagnoses Not on filedocumented in this encounter Additional Health Concerns Assessment Noted Time PHQ-9 Depression Total Score: 0 01/22/20 8:50 AM CDT documented as of this encounter Care Teams Order Entry Clerk Relationship Specialty Start Date End Date Nora Linares MD PCP - General Family Medicine 12/25/19 Deni Infante MD [address] [facility] [address] [place], [place] [phone] Consulting Physician Oncology 12/25/19 08/02/24 Polina Diaz MD [address] [place] [address] [place] [address] [phone] Consulting Physician Oncology 08/03/24 documented as of this encounter
--- OUTSIDE RECORDS SUMMARY | 2025-05-20 12:48 | XMS_ITS | Encounter Summary ---
Author Organization [facility] Address [address] [place] [address] Care Team Providers Care Customer Service Coordinator Name Role Phone Nilson Rosa MD Primary Care Provider None, Provider Primary Care Provider Nora Murphy MD Primary Care Provider Encounter Details Date Type Department Care Team (Late st Contact Info) Description 05/20/[address] [place] [address] Nilson Rosa MD [facility] [address] [place] [phone] Social History Tobacco Use Types Packs/Day Years Used Date Smoking Tobacco: Never Assessed Sex and Gender Information Value Date Recorded Sex Assigned at Male 07/05/2024 1:28 PM DIRECTOR OF ONLINE MERCHANDISING Legal Sex Male 9:39 PM CDT Gender Identity Not on file Sexual Orientation Not on file documented as of this encounter Plan of Treatment Not on file documented as of this encounter Visit Diagnoses Not on filedocumented in this encounter Additional Health Concerns Infection Onset Date Last Indicated Resolved Time COVID-19 Rule Out 09/28/2020 09/28/2020 05/05/2021 6:16 PM DIRECTOR OF ONLINE MERCHANDISING documented as of this encounter Care Teams Customer Service Coordinator Relationship Specialty Start Date End Date Nilson Rosa MD [address] [place] [address] PCP - General FAMILY PRACTICE 11/28/18 08/10/19 None, Provider, PCP - General 09/10/20 04/22/23 Nora Linares MD [address] [place] [address] PCP - General FAMILY PRACTICE 04/23/23 documented as of this encounter
--- OUTSIDE RECORDS SUMMARY | 2025-05-20 12:48 | XMS_ITS | Clinical Summary ---
Author Organization [facility] Address [address] [place] [address] Phone Care Team Providers Care Legal Referee Name Role Phone Nora Linares MD Primary Care Provider Polina Diaz MD Unavailable Allergies Active Allergy Reactions Criticality Noted Date Comments Levofloxacin Unknown 01/22/2020 Mirabegron Rash 01/22/2020 Penicillins Unknown 02/27/2012 Semaglutide Nausea Low 03/06/2024 Solifenacin Swelling 01/22/2020 Medications gabapentin (NEURONTIN) 300 MG Capsule Take 300 mg by mouth 2 times daily. Active lisinopril (PRINIVIL, ZESTRIL) 2.5 MG Tablet 2 Active montelukast (SINGULAIR) 10 MG Tablet 2 Active primidone (MYSOLINE) 50 MG Tablet 2 Active Tadalafil 5 MG Tablet Take 1 Tablet by mouth daily. 3 Active tamsulosin (FLOMAX) 0.4 MG Capsule Take 0.4 mg by mouth daily. Active pantoprazole (PROTONIX) 40 MG Tablet Delayed Response Take 40 mg by mouth daily. 4 Active Tresiba FlexTouch 200 UNIT/ML Solution Pen-injector INJECT 75 UNITS INTO SKIN DAILY Active magnesium oxide (MAG-OX) 400 MG Tablet TAKE 1 TABLET BY MOUTH EVERY DAY 30 Tablet 2 5 Active aspirin EC 81 MG Tablet Delayed Response Take 81 mg by mouth daily. 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 Osteoarthritis (arthritis due to wear and tear o f joints) 11/30/2018 Ventral hernia 10/07/2015 Overview (08/18/2021): Date Onset: 10/07/2015 Benign lipomatous neoplasm 07/19/2014 Overview (08/18/2021): Date Onset: 07/19/2014 Low back pain 07/19/2014 Overview (08/18/2021): Date Onset: 07/19/2014 Umbilical hernia 07/19/2014 Overview (08/18/2021): Date Onset: 02/27/2012 Date Onset: 07/19/2014 Sciatica 07/19/2014 Overview (08/18/2021): Date Onset: 07/19/2014 Depression 01/02/2014 Overview (08/18/2021): Date Onset: 01/02/2014 Peripheral neuropathy 01/02/2014 Overview (08/18/2021): Date Onset: 04/19/2017 Date Onset: 01/02/2014 OAB (overactive bladder) 01/02/2014 Overview (08/18/2021): Date Onset: 01/02/2014 Restless leg syndrome 01/02/2014 Overview (08/18/2021): Date Onset: 01/02/2014 Obesity 08/08/2012 Overview (08/18/2021): Date Onset: 06/16/2012 Date Onset: 06/16/2012 Benign prostatic hyperplasia 08/08/2012 Overview (08/18/2021): Date Onset: 08/08/2012 Other testicular hypofunction 08/08/2012 Overview (08/18/2021): Date Onset: 06/16/2012 Sleep apnea, obstructive 08/08/2012 Overview (08/18/2021): Date Onset: 06/16/2012 Hyperlipidemia 06/16/2012 Overview (08/18/2021): Date Onset: 07/03/2011 Erectile dysfunction 05/30/2012 Overview (08/18/2021): Date Onset: 05/30/2012 Hip pain 05/30/2012 Overview (08/18/2021): Date Onset: 05/30/2012 Diabetes mellitus, type II 07/03/2011 Overview (08/18/2021): Date Onset: 07/03/2011 Encounters Date Type Department Care Team Description 03/05/2025 8:45 AM CDT Office Visit [facility] [place] [address] [place] [address] Polina Diaz MD Iron deficiency anemia, unspecified iron deficiency anemia type (Primary Dx); MTHFR mutation; Hypomagnesemia; Thrombocytopenia (HCC) 03/05/2025 Travel 02/27/2025 Results Follow-Up [facility] [address] [phone] Polina Diaz MD RETICULOCYTE COUNT (RETIC), IRON W/ IRON BINDING CAPACITY [place], MAGNESIUM (MG), Additional followed-up results: 3 02/26/2025 12:45 PM CDT Clinical Support [facility] [address] [place] [phone] Nurse, [facility] Other iron deficiency anemia (Primary Dx) 02/26/2025 Travel from Last 3 Months Immunizations Immunization Administration Dates Next Due Influenza Vaccine,unspecified Formulation 2016,05/10/2012 Influenza, High-dose, Quadrivalent 05/09/2019 Influenza, Quadrivalent, Adjuvanted 04/04/2020 Influenza, high-dose, trivalent, PF 04/03/2021,1 06/24/2019,05/09/2019 Pneumococcal Vaccine - 13 Valent 08/16/2020 TDAP Vaccine 11/20/2019,06/29/2015 Varicella Vaccine Live 08/22/2013 Zoster Vaccine, live 08/22/2013 Family History Medical History Relation Name Comments Cancer Mother breast cancer Relation Name Status Comments Father Alive Mother Alive Sister Social History Tobacco Use Types Packs/Day Years Used Date Smoking Tobacco: Never Smokeless Tobacco: Former Chew Quit: 05/14/2019 Tobacco Cessation:Counseling Given: No Alcohol Use Standard [...] Sign Reading Time Taken Comments Blood Pressure 124/72 03/05/2025 9:15 AM CDT Pulse 59 03/05/2025 9:15 AM CDT Temperature 36.6 C (97.8 F) 03/05/2025 9:15 AM CDT Respiratory Rate 16 01/22/2020 8:49 AM CDT Oxygen Saturation 97% 03/05/2025 9:15 AM CDT Inhaled Oxygen Concentration - - Weight 131.1 kg (289 lb) 03/05/2025 9:15 AM CDT Height 177.8 cm (5' 10) 03/05/2025 9:15 AM CDT Body Mass Index 41.47 03/05/2025 9:15 AM CDT Plan of Treatment Upcoming Encounters Date Type Department Care Team (Late st Contact Info) Description 06/25/2025 9:30 AM RESIDENTIAL PROPERTY CONSULTANT Clinical Support [facility] [address] [place] [place] [phone] Nurse, Lin Gaines 07/02/2025 9:00 AM RESIDENTIAL PROPERTY CONSULTANT Office Visit [facility] [address] [place] [address] [place] [phone] Polina Diaz MD [address] [place] [phone] Health Maintenance Due Date Last Done Comments Diabetes: Foot Exam 1950 Cologuard 1995 Colonoscopy 1995 Colorectal Cancer Screening 1995 Immunochemical Fecal Occult Blood 1995 Medicare Initial AWV [id number] 03/14/2016 Pneumococcal Immunization (50+ years) (2 of 2 - PPSV23, PCV20, or PCV21) 10/11/2020 08/16/2020 Influenza Immunization (#1) 02/12/202503/16, 04/03/2021, 04/24/2020, Additional history exists SARS-COV-2 Immunization (5 - 2025-26 season) 2025 08/19/2022, 04/16/2021, 08/10/2020, Additional history exists Respiratory Syncytial Virus (RSV) Immunization (Adult) (1 - 1-dose 75+ series) 2025 Zoster Immunization (3 of 3) 03/30/2025, 03/03/2023, 08/22/2013 Diabetes: Eye Exam 07/18/2025 07/18/2024 Diabetes: Hemoglobin A1c 08/14/2025 02/14/2025, 04/15 Diabetes: Nephropathy Screening 02/27/2026 02/27/2025 Td Immunization Every 10 Years (Adults With 1 Tdap) 11/19/2029 11/20/2019, 06/29/2015 DTaP/Tdap/Td Immunization Discontinued 11/20/2019, Pneumococcal Immunization Combined Discontinued 08/16/2020 Hepatitis C Virus (HCV) Screening Completed 03/06/2024 Hepatitis B Immunization Aged Out No longer eligible based on patient's age to complete this topic Human Papillomavirus (HPV) Immunization Aged Out No longer eligible based on patient's age to complete this topic Meningococcal Immunization (ACWY) Aged Out No longer eligible based on patient's age to complete this topic Rotavirus Immunization Aged Out No lo nger eligible based on patient's age to complete this topic Procedures Procedure Name Priority Date/Time Associated Diagnosis Comments CBC WITH AUTO DIFF OH Routine 02/27/2025 1:05 PM CDT CMP (COMPREHENSIVE METABOLIC PANEL) Routine 02/27/2025 1:05 PM CDT Iron deficiency anemia, unspecified iron deficiency anemia type MTHFR mutation Hypomagnesemia Thrombocytopenia (HCC) LACTATE DEHYDROGENASE (LD) Routine 02/27/2025 1:05 PM CDT Iron deficiency anemia, unspecified iron deficiency anemia type MTHFR mutation Hypomagnesemia Thrombocytopenia (HCC) MAGNESIUM (MG) Routine 02/27/2025 1:05 PM CDT Iron deficiency anemia, unspecified iron deficiency anemia type MTHFR mutation Hypomagnesemia Thrombocytopenia (HCC) FERRITIN Routine 02/27/2025 1:05 PM CDT Iron deficiency anemia, unspecified iron deficiency anemia type MTHFR mutation Hypomagnesemia Thrombocytopenia (HCC) IRON W/ IRON BINDING CAPACITY [place] Routine 02/27/2025 1:05 PM CDT Iron deficiency anemia, unspecified iron deficiency anemia type MTHFR mutation Hypomagnesemia Thrombocytopenia (HCC) RETICULOCYTE COUNT (RETIC) Routine 02/27/2025 1:05 PM CDT Iron deficiency anemia, unspecified iron deficiency anemia type MTHFR mutation Hypomagnesemia Thrombocytopenia (HCC) from Last 3 Months Results * IRON W/ IRON BINDING CAPACITY [place] (02/27/2025 1:05 PM CDT) IRON 90 50 - 212 ug/dL [facility] UIBC 244 155 - 355 ug/dL [facility] TIBC 334 261 - 478 ug/dl [facility] % Saturation 27 20 - 50 % [facility] 02/27/2025 1:05 PM CDT Narrative [facility] - 02/27/2025 3:13 PM CDT Release to patient->Immediate Polina Diaz MD LAB SEND OUTS Final Result [facility] [address] [place] [place] [address], * (ABNORMAL) CBC WITH AUTO DIFF [place] (02/27/2025 1:05 PM CDT) WBC 4.9 4.0 - 10.0 10*3/uL [facility] HGB 13.9 13.7 - 17.5 g/dL [facility] HCT 40.8 40.1 - 51.0 % [facility] PLT 121(L) 163 - 369 10*3/uL [facility] MPV See below 9.4 - 12.4 fL [facility] Comment:Instrument unable to provide an accurate result RBC 4.69 4.63 - 6.08 10*6/uL [facility] MCV 87 79 - 95 fL [facility] MCH 29.6 25.6 - 32.2 pg [facility] MCHC 34.1 32.2 - 36.5 g/dL [facility] RDW 13.5 11.6 - 14.4 % [facility] Neutrophils % 66.6(H) 36.0 - 66.0 % [facility] Lymphocytes % 21.4 19.0 - 40.0 % [facility] Monocytes % 6.1 4.1 - 12.1 % [facility] Eosinophils % 3.1 0.0 - 3.5 % [facility] Basophils % 1.2(H) 0.0 - 1.0 % [facility] Absolute Neutrophils 3.3 1.4 - 6.6 10*3/uL [facility] Absolute Lymphocytes 1.1 0.8 - 4.0 10*3/uL [facility] Absolute Monocytes 0.3 0.2 - 1.2 10*3/uL [facility] Absolute Eosinophils 0.2 0.0 - 0.4 10*3/uL [facility] Absolute Basophils 0.1 0.0 - 0.1 10*3/uL [facility] 02/27/2025 1:05 PM CDT Polina Diaz MD LAB SEND OUTS Final Result Performing Organization Address City/State/[facility] Co de Phone Number [facility] [place] [address], * (ABNORMAL) RETICULOCYTE COUNT (RETIC) (02/27/2025 1:05 PM CDT) Reticulocyte count 2.11(H) 0.51 - 1.81 % [facility] RET-He 31.90 28.20 - 36.60 pg [facility] Comment: RET-He is a direct assessment of incorporation of iron into erythrocyte hemoglobin. It provides an indirect measure of the iron available for new erythropoiesis over past 2-4 days. Blood 02/27/2025 1:05 PM CDT us Polina Diaz MD HEMATOLOGY ORDERABLES Final Resu lt Performing Organization Address [facility]/ZIP Co de Phone Number [facility] [address] [place] [address], * (ABNORMAL) MAGNESIUM (MG) (02/27/2025 1:05 PM CDT) Magnesium 1.6(L) 1.9 - 2.7 mg/dL [facility] Blood 02/27/2025 1:05 PM CDT Narrative [facility] - 02/27/2025 3:13 PM CDT Release to patient->Immediate us Polina Diaz MD CHEMISTRY ORDERABLES Final Resul t Performing Organization Address [facility] Co de Phone Number [facility] [address] [place] [address], * LACTATE DEHYDROGENASE (LD) (02/27/2025 1:05 PM CDT) LDH 151 140 - 271 U/L [facility] Blood 02/27/2025 1:05 PM CDT Narrative [facility] - 02/27/2025 3:13 PM CDT Release to patient->Immediate us Polina Diaz MD CHEMISTRY ORDERABLES Final Resul t Performing Organization Address City/[facility]/ZIP Co de Phone Number [facility] [address] [place] [address], [place] [phone] * FERRITIN (02/27/2025 1:05 PM CDT) Ferritin 227 24 - 336 ng/mL [facility] Blood 02/27/2025 1:05 PM CDT Narrative [facility] - 02/28/2025 1:35 PM CDT Release to patient->Immediate us Polina Diaz MD CHEMISTRY ORDERABLES Final Resul t [facility] [place] [address], * (ABNORMAL) CMP (COMPREHENSIVE METABOLIC PANEL) (02/27/2025 1:05 PM CDT) Glucose 180(H) 70 - 105 mg/dL [facility] Blood Urea Nitrogen 23 7 - 25 mg/dL [facility] Creatinine 1.0 0.7 - 1.3 mg/dL [facility] Sodium 139 136 - 145 mEq/L [facility] Potassium 4.7 3.5 - 5.1 mEq/L [facility] Chloride 105 98 - 107 mEq/L [facility] Bicarbonate 24 21 - 31 mEq/L [facility] Total Bilirubin 0.6 0.3 - 1.0 mg/dL [facility] Alk. Phosphatase 57 34 - 104 U/L [facility] Aspartate Aminotransferase 13 13 - 39 U/L [facility] Alanine Aminotransferase 13 7 - 52 U/L [facility] Total Protein 6.6 6.4 - 8.9 g/dL [facility] Albumin 3.9 3.5 - 5.7 g/dL [facility] Calcium 9.7 8.6 - 10.3 mg/dL [facility] Anion Gap 14.7 7.0 - 15.0 mEq/L [facility] Globulin 2.7 2.0 - 3.5 g/dL [facility] EGFR 79 >60 ml/min/1. 73m2 [facility] Comment: This eGFR is calculated using 2020 CKD-EPI Creatinine equation without race modifier based on the NKF-ASN task force recommendations Equation: zMBG=751*min(SCr/k,1)a*max(SCr/k,1)-1.200*0.9938Age*1.012 (if female), where SCr is serum creatinine, k is 0.7 for females and 0.9 for males, and a is -0.241 for females and -0.302 for males Blood 02/27/2025 1:05 PM CDT Narrative [facility] - 02/27/2025 3:13 PM CDT Release to patient->Immediate IS THE PATIENT REQUIRED TO BE FASTING FOR 8 HOURS?->No us Polina Diaz MD CHEMISTRY ORDERABLES Final Resul t [facility] [address] [place] [address], from Last 3 Months Insurance MEDICARE [facility] Care Teams Legal Referee Relationship Specialty Start Date End Date Nora Linares MD PCP - General Family Medicine 12/25/19 Polina Diaz MD [address] [place] [address] [address] [place] [phone] Consulting Physician Oncology 08/03/24
== END 2025-05-20 12:44 | disposition home or self-care (01) ==
PROVIDERS: PCP Family Medicine; Visit Provider Student in an Organized Health Care Education/Training Program
DX: S83.521A Sprain of posterior cruciate ligament of right knee, initial encounter (principal); M17.11 Unilateral primary osteoarthritis, right knee; M94.261 Chondromalacia, right knee; X58.XXXA Exposure to other specified factors, initial encounter
CPT/HCPCS: 73721